=== PATIENT | male | born 1935 | race Caucasian/White ===

== ENCOUNTER 2017-02-06 14:49 | Inpatient (IN) | payer OTHER ==
[~2017-02-06] VITALS: Ht 182.9 cm; Wt 125.3 kg
[2017-02-06] MEDS ORDERED: ALBUT/IPRATROP 3MG/0.5MG NEB 3 ML VIAL INH ONE (15:00)
--- NOTE | 2017-02-06 15:01 | EMERGENCY ROOM VISIT NOTE ---
History Report prepared by Darío: Yuriy Leslie Under the Supervision of: Dr. Jr Mishra D.O. First contact with patient: 14:53 Stated Complaint: HIP PAIN History of Present Illness The patient is a 81 year old male with a history of COPD who presents to the Emergency Room via EMS with complaints of persistent left hip pain that started 3 days ago. He says that he was sneezing in his truck 3 days ago, and it "just popped". He has sat in the truck ever since the incident occurred. Per EMS, the patient's oxygen saturation was 73% prior to arrival. The patient states that it has been "quite a while" since he last ate. He adds that he originally fell 3 months ago but does not think he hurt anything on that fall. He had the left hip replaced 7 years ago. He denies any head pain, neck pain, chest pain or notable shortness of breath. Per the nursing staff, the patient has stool on him. The patient is an ex-smoker. Source of History: patient, EMS Onset: 3 days ago Position: other (left hip) Symptom Intensity: feit "everything pop" Quality: other (pain) Timing: other (persistent) Associated Symptoms: No headache, No neck pain, No chest pain, No SOB Note: Associated symptoms: Stool on him. Oxygen saturation of 73% prior to arrival. Review of Systems See HPI for pertinent positives & negatives. A total of 10 systems reviewed and were otherwise negative. Past Medical & Surgical Medical Problems: (1) Acute respiratory failure (2) COPD (chronic obstructive pulmonary disease) Surgical Problems: (1) History of hip replacement Family History Family history omitted secondary to patient's advanced age. Social History Smoking Status: Former Smoker Drug Use: none Occupation Status: employed Current/Historical Medications Scheduled Alfuzosin Hcl (Uroxatral), 10 MG PO DAILY Apixaban (Eliquis), 5 MG PO BID Fluticasone Furoate-Vilanterol (Breo Ellipta 200-25 Mcg/INH), 1 INHA PO DAILY Lisinopril/Hctz (Zestoretic 20MG/12.5MG), 1 TAB PO DAILY Metoprolol Succinate (Toprol Xl), 25 MG PO DAILY Pravastatin Sodium (Pravachol), 40 MG PO DAILY Scheduled PRN Acetaminophen (Tylenol), 1,000 MG PO Q6 PRN for Headache or Pain Famotidine (Pepcid), 20 MG PO DAILY PRN for ACID REFLUX Oxymetazoline Hcl (Afrin), 2 SPRAYS FLEX DAILY PRN for Nasal Congestion Allergies Coded Allergies: Penicillins (Verified Allergy, Severe, RASH, 02/06/17) Physical Exam Vital Signs Date Time Temp Pulse Resp B/P (MAP) Pulse Ox O2 Delivery O2 Flow Rate FiO2 02/06/17 18:32 128 98/53 89 Non-Rebreather 15.0 02/06/17 18:30 130 20 81 Non-Rebreather 15.0 02/06/17 18:01 85/53 02/06/17 18:00 145 25 84 Non-Rebreather 15.0 02/06/17 17:31 105/62 02/06/17 17:30 124 28 86 Non-Rebreather 15.0 02/06/17 17:08 132 16 103/48 88 Non-Rebreather 15.0 02/06/17 16:51 120/51 02/06/17 16:43 129 22 85 Non-Rebreather 15.0 02/06/17 16:31 117/55 02/06/17 16:13 104 20 86 Nebulizer 8.0 02/06/17 16:01 98/67 02/06/17 15:43 107 20 88 Nebulizer 8.0 02/06/17 15:31 113/62 02/06/17 15:21 90 Non-Rebreather 15.0 02/06/17 15:19 102/60 02/06/17 15:15 107 02/06/17 15:13 122 19 88 Non-Rebreather 15.0 02/06/17 15:12 102/60 02/06/17 15:11 36.7 100 19 89 Non-Rebreather 15.0 02/06/17 15:11 75 Room Air Physical Exam GENERAL: Patient is awake, alert, very anxious appearing. Appears to be having significant difficulty breathing. EYES: The conjunctivae are clear. The pupils are round and reactive. EARS, NOSE, MOUTH AND THROAT: The nose is without any evidence of any deformity. Mucous membranes are moist tongue is midline NECK: The neck is nontender and supple. RESPIRATORY: Lung sounds were diminished throughout with scattered rhonchi. Significant tachypnea and conversational dyspnea appreciated. CARDIOVASCULAR: Heart sounds were tachycardic but regular. No definite murmur. GASTROINTESTINAL: The abdomen is soft. Bowel sounds are present in all quadrants. Abdomen is nontender BACK: No midline tenderness or or step-off noted range of motion in flexion extension as well as rotation no signs of muscle spasm noted MUSCULOSKELETAL/EXTREMITIES: There is shortening on the left lower extremity. There was pain noted with external and internal rotation. SKIN: Pedal edema bilaterally. Skin was cool and dry. NEUROLOGIC: Patient is awake alert and oriented x3. Medical Decision & Procedures ER Provider Diagnostic Interpretation: X-ray results as stated below per interpretation by me and the radiologist. L PELVIS/UNILATERAL HIP 2-3VIEWS CLINICAL HISTORY: 81 years-old Male presenting with fall. TECHNIQUE: Single frontal view of the pelvis and frontal and frog-leg lateral views of the left hip were obtained. COMPARISON: None. FINDINGS: Postsurgical changes of total left hip arthroplasty. Lucency along the acetabular component. Heterotopic ossification noted along the superior portion of the left hip. Heterotopic ossification also noted along the greater trochanter. No periprosthetic fracture. No malalignment. A cam-type deformity may be present along the superior portion of the right femoral neck. Right hip joint congruent. Bony pelvis intact. Moderate stool burden in the rectum. IMPRESSION: 1. Lucency along the acetabular component of the total left hip arthroplasty could suggest particle disease. 2. No acute osseous injury of the pelvis or left hip. Electronically signed by: Alber Bar M.D. 02/06/2017 3:53 PM Dictated Date/Time: 02/06/2017 3:51 PM CHEST ONE VIEW PORTABLE CLINICAL HISTORY: Sepsis. COMPARISON STUDY: No previous studies for comparison. FINDINGS: Lung volumes are normal. No pneumothorax or pleural effusion is present. There is no consolidation to suggest pneumonia. Bibasilar opacities favor atelectasis or normal vessels. Moderate cardiomegaly is noted without evidence of pulmonary edema. IMPRESSION: 1. No acute cardiopulmonary findings. 2. Increased bibasilar markings which likely reflect atelectasis or normal vessels. Left basilar pneumonia could appear similar although is considered less likely. 3. Mild cardiomegaly without evidence of pulmonary edema. Electronically signed by: Juanito Gonzalez M.D. 02/06/2017 3:52 PM Dictated Date/Time: 02/06/2017 3:51 PM L FEMUR 2 VIEWS ROUTINE CLINICAL HISTORY: 81 years-old Male presenting with LLE pain. TECHNIQUE: Frontal and lateral views of the left femur were obtained. COMPARISON: None. FINDINGS: The proximal femur is excluded from the [id number]. Partially visualized stem component of the left hip prosthesis. Please see separately dictated radiographs of the left hip. The mid to distal femur demonstrates no acute fracture or malalignment. Degenerative changes of the knee. Atherosclerosis. Knee joint effusion. Ossification within the distal patellar tendon likely degenerative in etiology or indicative of prior injury. IMPRESSION: No acute osseous injury of the visualized portion of the left femur. Electronically signed by: Alber Bar M.D. 02/06/2017 4:38 PM Dictated Date/Time: 02/06/2017 4:37 PM Laboratory Results 02/06/17 15:20 Red Blood Count 4.12, Mean Corpuscular Volume 93.4, Mean Corpuscular Hemoglobin 32.3, Mean Corpuscular Hemoglobin Concent 34.5, Mean Platelet Volume 11.4, Neutrophils (%) (Auto) 84.9, Lymphocytes (%) (Auto) 6.4, Monocytes (%) (Auto) 8.5, Eosinophils (%) (Auto) 0.0, Basophils (%) (Auto) 0.0, Neutrophils # (Auto) 7.08, Lymphocytes # (Auto) 0.53, Monocytes # (Auto) 0.71, Eosinophils # (Auto) 0.00, Basophils # (Auto) 0.00 02/06/17 15:20 Test 02/06/17 15:20 02/06/17 15:30 02/06/17 15:34 White Blood Count 8.34 K/uL (4.8-10.8) Red Blood Count 4.12 M/uL (4.7-6.1) Hemoglobin 13.3 g/dL (14.0-18.0) Hematocrit 38.5 % (42-52) Mean Corpuscular Volume 93.4 fL (80-100) Mean Corpuscular Hemoglobin 32.3 pg (25-34) Mean Corpuscular Hemoglobin Concent 34.5 g/dl (32-36) Platelet Count 139 K/uL (130-400) Mean Platelet Volume 11.4 fL (7.4-10.4) Neutrophils (%) (Auto) 84.9 % Lymphocytes (%) (Auto) 6.4 % Monocytes (%) (Auto) 8.5 % Eosinophils (%) (Auto) 0.0 % Basophils (%) (Auto) 0.0 % Neutrophils # (Auto) 7.08 K/uL (1.4-6.5) Lymphocytes # (Auto) 0.53 K/uL (1.2-3.4) Monocytes # (Auto) 0.71 K/uL (0.11-0.59) Eosinophils # (Auto) 0.00 K/uL (0-0.5) Basophils # (Auto) 0.00 K/uL (0-0.2) RDW Standard Deviation 49.3 fL (36.4-46.3) RDW Coefficient of Variation 14.5 % (11.5-14.5) Immature Granulocyte % (Auto) 0.2 % Immature Granulocyte # (Auto) 0.02 K/uL (0.00-0.02) Erythrocyte Sedimentation Rate 50 mm/hr (0-14) Prothrombin Time 10.9 SECONDS (9.0-12.0) Prothromb Time International Ratio 1.0 (0.9-1.1) Activated Partial Thromboplast Time 30.8 SECONDS (21.0-31.0) Partial Thromboplastin Ratio 1.2 Anion Gap 5.0 mmol/L (3-11) Est Creatinine Clear Calc Drug Dose 19.7 ml/min Estimated GFR () 15.7 Estimated GFR (Non- 13.6 BUN/Creatinine Ratio 23.6 (10-20) Calcium Level 8.6 mg/dl (8.5-10.1) Phosphorus Level 4.7 mg/dl (2.5-4.9) Magnesium Level 2.1 mg/dl (1.8-2.4) Total Bilirubin 1.0 mg/dl (0.2-1) Aspartate Amino Transf (AST/SGOT) 117 U/L (15-37) Alanine Aminotransferase (ALT/SGPT) 52 U/L (12-78) Alkaline Phosphatase 63 U/L (45-117) Total Creatine Kinase 2711 U/L (39-308) Creatine Kinase MB 12.1 ng/ml (0.5-3.6) Creatine Kinase MB Ratio 0.4 (0-3.0) Troponin I 0.042 ng/ml (0-0.045) C-Reactive Protein 21.90 mg/dl (0-0.29) Pro-B-Type Natriuretic Peptide 789 pg/ml (0-1800) Total Protein 7.5 gm/dl (6.4-8.2) Albumin 3.2 gm/dl (3.4-5.0) Globulin 4.3 gm/dl (2.5-4.0) Albumin/Globulin Ratio 0.7 (0.9-2) Lipase 143 U/L (73-393) Venous Blood pH 7.29 (7.36-7.41) Venous Blood Partial Pressure CO2 48 mmHg (38.0-50.0) Venous Blood Partial Pressure O2 51 mmHg Venous Blood HCO3 23 mmol/L Venous Blood Oxygen Saturation 79.2 % Venous Blood Base Excess -4.1 mEq/L Bedside Lactic Acid Venous 1.53 mmol/L (0.90-1.70) Laboratory results per my review. Medications Administered Medications (Trade) Dose Ordered Sig/Doreen Route Start Time Stop Time Status Last Admin Dose Admin Albuterol/ Ipratropium (Duoneb) 12 ml ONE ONCE INH 02/06/17 15:00 02/06/17 15:01 DC 02/06/17 16:01 12 ML Levofloxacin (Levaquin / D5W) 750 mg NOW STAT IV 02/06/17 16:52 02/06/17 16:54 DC 02/06/17 17:07 750 MG Sodium Chloride 1,000 ml @ 999 mls/hr Q1H1M STAT IV 02/06/17 16:55 02/06/17 17:55 DC 02/06/17 17:08 999 MLS/HR Sodium Chloride 1,000 ml @ 500 mls/hr Q2H STAT IV 02/06/17 16:55 02/06/17 18:54 DC 02/06/17 16:55 500 MLS/HR ECG Indication: SOB/dyspnea Rate (beats per minute): 107 Rhythm: atrial fibrillation Findings: other (no PVCs, poor R-wave progression) Comparison ECG Date: no prior available ED Course 1453: The patient was evaluated in room A10. A complete history and physical examination were performed. 1500: Ordered Duoneb 12 ml INH. 1652: Ordered Levaquin / D5W 750 mg IV. 1655: Ordered NSS 1000 ml @ 500 mls/hr IV, NSS 1000 ml @ 999 mls/hr IV. 1705: Upon reevaluation, the patient is resting. I discussed results and treatment plan with him. He verbalizes agreement and understanding. The patient will be evaluated for further management and care. 1715: I discussed the patient's case with Camille Helms. The patient will be evaluated for further management. 1900: I discussed the patient with Dr. Tan Padilla [facility] bottom turner. Medical Decision Differential diagnosis: Etiologies such as fracture, dislocation, intra-abdominal, pneumothorax, intrathoracic, intracranial, neurologic, infections, reactive airway disease, pneumonia, pneumothorax, COPD, CHF, cardiac ischemia, pulmonary embolism, musculoskeletal, gastrointestinal, as well as others were entertained. Nursing notes reviewed. Additional history is obtained from the prehospital personnel. The patient is a 81-year-old male who presented to the emergency department by prehospital personnel with left hip pain. The patient has a history of a left hip replacement. He states that he sneezed very hard and then turned and ever since that time he's had significant pain in his left hip. Initially it was felt that the patient's hip was dislocated because his lower extremity was shortened and he had severe difficulty putting weight on the leg. The patient was very edematous and states that he's been in the cab of his truck for the last 3-4 days unable to get out. The patient was found have significant difficulty breathing with hypoxia and abnormal lung sounds. He has a history of COPD. He was treated with supplemental oxygen and bronchodilator therapy. His condition significantly improved. He appears to have signs of pneumonia on chest x-ray. The patient was treated with IV fluids and IV antibiotics. The patient was reevaluated multiple times. He appears to have atrial fibrillation at this time. I discussed this case with the on-call [facility] hospitalist group. I also discussed his case with the bottom turner. They've agreed to evaluate the patient in the emergency apartment for further management and disposition. Medication Reconcilliation Current Medication List: was personally reviewed by me Blood Pressure Screening Patient's blood pressure: Normal blood pressure Consults Time Called: 171 Consulting Physician: Camille Helms Returned Call: 1715 I discussed the patient's case with Camille Helms. The patient will be evaluated for further management. Additional Consults: Time Called: 1700 Consulted Physician: Dr. Tan PEARSON bottom turner Returned Call: 1900 Additional Comments: I discussed the patient with Dr. Tan PEARSON bottom turner. Impression Primary Impression: Rhabdomyolysis Additional Impressions: Left hip pain Renal failure Hypoxia Left lower lobe pneumonia COPD exacerbation Afib Scribe Attestation The scribe's documentation has been prepared under my direction and personally reviewed by me in its entirety. I confirm that the note above accurately reflects all work, treatment, procedures, and medical decision making performed by me. Departure Information Dispostion Being Evaluated By Hospitalist Referrals No Doctor, Assigned (PCP) Problem Qualifiers Primary Impression: Rhabdomyolysis Rhabdomyolysis type: non-traumatic Qualified Codes: M62.82 - Rhabdomyolysis Additional Impressions: Renal failure Renal failure chronicity: acute Acute renal failure type: unspecified Qualified Codes: N17.9 - Acute kidney failure, unspecified Left lower lobe pneumonia Pneumonia type: due to unspecified organism Qualified Codes: J18.1 - Lobar pneumonia, unspecified organism Afib Atrial fibrillation type: chronic Qualified Codes: I48.2 - Chronic atrial fibrillation
[2017-02-06 15:47] LABS: HEMATOCRIT 38.5 % (42-52); HEMOGLOBIN 13.3 g/dL (14.0-18.0); MEAN CELL VOLUME 93.4 fL (80-100); MEAN CORPUSCULAR HEMOGLOBIN 32.3 pg (25-34); MEAN CORPUSCULAR HGB CONC 34.5 g/dl (32-36); MEAN PLATELET VOLUME 11.4 fL (7.4-10.4); PLATELET COUNT 139 K/uL (130-400); RED CELL DISTRIBUTION WIDTH CV 14.5 % (11.5-14.5); RED CELL DISTRIBUTION WIDTH SD 49.3 fL (36.4-46.3); WHITE BLOOD COUNT 8.34 K/uL (4.8-10.8)
--- NOTE | 2017-02-06 15:54 | DIAGNOSTIC IMAGING REPORT ---
CHEST ONE VIEW PORTABLE CLINICAL HISTORY: Sepsis. COMPARISON STUDY: No previous studies for comparison. FINDINGS: Lung volumes are normal. No pneumothorax or pleural effusion is present. There is no consolidation to suggest pneumonia. Bibasilar opacities favor atelectasis or normal vessels. Moderate cardiomegaly is noted without evidence of pulmonary edema. IMPRESSION: 1. No acute cardiopulmonary findings. 2. Increased bibasilar markings which likely reflect atelectasis or normal vessels. Left basilar pneumonia could appear similar although is considered less likely. 3. Mild cardiomegaly without evidence of pulmonary edema. Electronically signed by: Juanito Gonzalez M.D. 02/06/2017 3:52 PM Dictated Date/Time: 02/06/2017 3:51 PM
[2017-02-06 15:55] LABS: PTT PATIENT 30.8 SECONDS (21.0-31.0)
--- NOTE | 2017-02-06 15:55 | DIAGNOSTIC IMAGING REPORT ---
L PELVIS/UNILATERAL HIP 2-3VIEWS CLINICAL HISTORY: 81 years-old Male presenting with fall. TECHNIQUE: Single frontal view of the pelvis and frontal and frog-leg lateral views of the left hip were obtained. COMPARISON: None. FINDINGS: Postsurgical changes of total left hip arthroplasty. Lucency along the acetabular component. Heterotopic ossification noted along the superior portion of the left hip. Heterotopic ossification also noted along the greater trochanter. No periprosthetic fracture. No malalignment. A cam-type deformity may be present along the superior portion of the right femoral neck. Right hip joint congruent. Bony pelvis intact. Moderate stool burden in the rectum. IMPRESSION: 1. Lucency along the acetabular component of the total left hip arthroplasty could suggest particle disease. 2. No acute osseous injury of the pelvis or left hip. Electronically signed by: Alber Bar M.D. 02/06/2017 3:53 PM Dictated Date/Time: 02/06/2017 3:51 PM
[2017-02-06 16:10] LABS: ALBUMIN 3.2 gm/dl (3.4-5.0); CALCIUM 8.6 mg/dl (8.5-10.1); CREATININE 3.94 mg/dl (0.60-1.40); POTASSIUM 3.8 mmol/L (3.5-5.1)
[2017-02-06 16:24] LABS: CKMB 12.1 ng/ml (0.5-3.6); PHOSPHORUS 4.7 mg/dl (2.5-4.9); TOTAL PROTEIN 7.5 gm/dl (6.4-8.2)
[2017-02-06 16:34] LABS: IG# 0.02 K/uL (0.00-0.02); LYMPH % 6.4 %; LYMPH ABS # 0.53 K/uL (1.2-3.4); MONO % 8.5 %; MONO ABS # 0.71 K/uL (0.11-0.59); NEUT % 84.9 %; NEUT ABS # 7.08 K/uL (1.4-6.5)
--- NOTE | 2017-02-06 16:39 | DIAGNOSTIC IMAGING REPORT ---
L FEMUR 2 VIEWS ROUTINE CLINICAL HISTORY: 81 years-old Male presenting with LLE pain. TECHNIQUE: Frontal and lateral views of the left femur were obtained. COMPARISON: None. FINDINGS: The proximal femur is excluded from the [id number]. Partially visualized stem component of the left hip prosthesis. Please see separately dictated radiographs of the left hip. The mid to distal femur demonstrates no acute fracture or malalignment. Degenerative changes of the knee. Atherosclerosis. Knee joint effusion. Ossification within the distal patellar tendon likely degenerative in etiology or indicative of prior injury. IMPRESSION: No acute osseous injury of the visualized portion of the left femur. Electronically signed by: Alber Bar M.D. 02/06/2017 4:38 PM Dictated Date/Time: 02/06/2017 4:37 PM
[2017-02-06] MEDS ORDERED: LEVAQUIN 750MG / 150ML D5W IV STA (16:52)
[2017-02-06] MEDS ORDERED: SODIUM CHLORIDE 0.9% 1000ML 1,000 ML IV STA ×3 (16:55→19:00)
[2017-02-06] MEDS ORDERED: FAMO20TA11 PO (17:34)
[2017-02-06] MEDS ORDERED: LISI-787 PO (17:34)
[2017-02-06] MEDS ORDERED: METO25TA4 PO (17:34)
[2017-02-06] MEDS ORDERED: ALFU10TA2 PO (17:34)
[2017-02-06] MEDS ORDERED: PRAV40TA PO (17:34)
[2017-02-06] MEDS ORDERED: APIX1TAB3 PO (17:34)
[2017-02-06] MEDS ORDERED: OXYM0.056 NAE (17:34)
[2017-02-06] MEDS ORDERED: ACET-1256 PO (17:34)
[2017-02-06] MEDS ORDERED: NITROGLYCERIN 0.4 MG SL PER TAB CHARGE SL PRN (18:00)
[2017-02-06] MEDS ORDERED: LEVALBUTEROL/IPRATROPIUM NEB INH PRN (18:30)
[2017-02-06] MEDS ORDERED: FLUT1INH7 PO (18:48)
[2017-02-06 19:44] VITALS: PULSE 109; O2SAT 97
[2017-02-06] MEDS ORDERED: HEPARIN 25000 UNIT/500 ML D5W ONE (19:53)
[2017-02-06] MEDS ORDERED: METOPROLOL TARTRATE 1 MG/ML VIAL IV PRN (20:00)
--- NOTE | 2017-02-06 20:11 | History and Physical ---
History & Physical Date & Time of Service: Feb 06, 2017 at 18:40 Chief Complaint: Hip Pain Primary Care Physician: No Doctor, Assigned History of Present Illness Source: patient, hospital records Pt is 81 y/o M with PMH COPD, HTN, BPH, JITENDRA uses CPAP, A-fib on Eliquis HS presented to ER with c/o L hip pain. 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 He states 3- 4 days ago he sneezed and felt pop in L hip and reports falling in the cab of his truck. Hx L hip replacement in past. He states that he hasn't been able to get out of his truck since and has been urinating/defecating in a bucket. His truck company called traffic control who then called EMS and had pt transported to ER. Found that pt hypoxic. Hx COPD, previous smoker, on Breo and denies rescue inhaler use. reports chronic cough productive of mendoza/green sputum and denies any increased cough or increased sputum production. Feeling chills and sweats past 2 days, unsure if had fever. Pt denies feeling SOB, however pt obvious respiratory distress. Reports feeling dizzy past couple of days. Reports some discomfort R lower leg. He reports chronic LE edema, worse past week. he states sometimes wears compression hose. Denies LE erythema. Hasn't had much to eat or drink since can't get out of his truck. Denies N/V/D/C, MELO, syncope, vision changes, neck pain, CP, orthopnea, palpitations, choking, rhinorrhea, abdominal pain, paresthesias, rashes, urinary symptoms. Do not have comparison labs, as [place] out of state. In ER pt found to O2 sats in 70's increased to 80's on non-rebreather. P: 120's , BP: 103.48. BUN: 93, Cr: 3.94, GFR: 15, POC lactic acid: 1.53. CPK: 2711, Troponin: 0.042 EKG: a-fib, rate 107. ESR: 50, CRP: 21. CXR: Increased bibasilar markings. Left basilar pneumonia could appear similar although is considered less likely. pending LE venous Doppler. Hip/pelvis xray: Lucency along the acetabular component of the total left hip arthroplasty could suggest particle disease. Past Medical/Surgical History Medical Problems: (1) Atrial fibrillation Status: Chronic (2) COPD (chronic obstructive pulmonary disease) Status: Chronic (3) Dyslipidemia Status: Chronic (4) HTN (hypertension) Status: Chronic (5) JITENDRA (obstructive sleep apnea) Status: Chronic Surgical Problems: (1) History of hip replacement Status: Resolved (2) History of left hip replacement Status: Resolved (3) Hx of right knee surgery Status: Resolved Family History Diabetes mellitus Stroke Social History Smoking Status: Former Smoker (smoked 2.5ppd x 56 years, quit 2008) Smokeless Tobacco Use: No Alcohol Use: none Drug Use: none Occupational Status: employed Allergies Coded Allergies: Penicillins (Verified Allergy, Severe, RASH, 02/06/17) Home Medications Scheduled Alfuzosin Hcl (Uroxatral), 10 MG PO DAILY Apixaban (Eliquis), 5 MG PO BID Fluticasone Furoate-Vilanterol (Breo Ellipta 200-25 Mcg/INH), 1 INHA PO DAILY Lisinopril/Hctz (Zestoretic 20MG/12.5MG), 1 TAB PO DAILY Metoprolol Succinate (Toprol Xl), 25 MG PO DAILY Pravastatin Sodium (Pravachol), 40 MG PO DAILY Scheduled PRN Acetaminophen (Tylenol), 1,000 MG PO Q6 PRN for Headache or Pain Famotidine (Pepcid), 20 MG PO DAILY PRN for ACID REFLUX Oxymetazoline Hcl (Afrin), 2 SPRAYS FLEX DAILY PRN for Nasal Congestion Review of Systems Constitutional: + problem reported (see HPI), No weight loss Eyes: No worsening of vision, No eye pain, No redness ENT: No unusual epistaxis, No trouble swallowing Respiratory: + problem reported (see HPI), No hemoptysis Cardiovascular: + problem reported (see HPI) Abdomen: No pain, No nausea, No vomiting, No diarrhea, No constipation, No GI bleeding Musculoskeletal: + problem reported (see HPI) Genitourinary - Male: No hematuria, No dysuria, No urinary frequency, No urinary urgency Neurologic: + balance problems (pt reports problems with his balance for several months) Psychiatric: No depression symptoms, No anxiety Endocrine: No excessive thirst, No excessive urination Hematologic / Lymphatic: No clotting problems, No swollen lymph nodes, No night sweats, No problem reported Integumentary: No rash, No itch Physical Exam Vital Signs Date Time Temp Pulse Resp B/P (MAP) Pulse Ox O2 Delivery O2 Flow Rate FiO2 02/06/17 17:08 132 16 103/48 88 Non-Rebreather 15.0 02/06/17 16:51 120/51 02/06/17 16:43 129 22 85 Non-Rebreather 15.0 02/06/17 16:31 117/55 02/06/17 16:13 104 20 86 Nebulizer 8.0 02/06/17 16:01 98/67 02/06/17 15:43 107 20 88 Nebulizer 8.0 02/06/17 15:31 113/62 02/06/17 15:21 90 Non-Rebreather 15.0 02/06/17 15:19 102/60 02/06/17 15:15 107 02/06/17 15:13 122 19 88 Non-Rebreather 15.0 02/06/17 15:12 102/60 02/06/17 15:11 36.7 100 19 89 Non-Rebreather 15.0 02/06/17 15:11 75 Room Air General Appearance: + obese, + pertinent finding (+respiratory distress, disheveled appearance) Head: normocephalic, atraumatic Eyes: normal inspection, PERRL, sclerae normal ENT: hearing grossly normal, pharynx normal, + pertinent finding (mildly dry mucous membranes) Respiratory/Chest: chest non-tender, + respiratory distress, + decreased breath sounds, + accessory muscle use, + crackles (LLL), + wheezing (scattered throughout) Cardiovascular: + tachycardia, + irregularly irregular Abdomen/GI: normal bowel sounds, non tender, soft Extremities/Musculoskelatal: + pertinent finding (bilateral LE edema, Right lower leg appears larger then left. no extremity erythema or significant warmth , distal pulses intact, sensation to light touch intact. Left lateral hip with tenderness to palpation, limited ROM L hip) Neurologic/Psych: alert, normal mood/affect, oriented x 3 Skin: normal color, warm/dry Diagnostics Laboratory Results Results Past 24 Hours Test 02/06/17 15:20 02/06/17 15:30 02/06/17 15:34 Range/Units White Blood Count 8.34 4.8-10.8 K/uL Red Blood Count 4.12 4.7-6.1 M/uL Hemoglobin 13.3 14.0-18.0 g/dL Hematocrit 38.5 42-52 % Mean Corpuscular Volume 93.4 80-100 fL Mean Corpuscular Hemoglobin 32.3 25-34 pg Mean Corpuscular Hemoglobin Concent 34.5 32-36 g/dl Platelet Count 139 130-400 K/uL Mean Platelet Volume 11.4 7.4-10.4 fL Neutrophils (%) (Auto) 84.9 % Lymphocytes (%) (Auto) 6.4 % Monocytes (%) (Auto) 8.5 % Eosinophils (%) (Auto) 0.0 % Basophils (%) (Auto) 0.0 % Neutrophils # (Auto) 7.08 1.4-6.5 K/uL Lymphocytes # (Auto) 0.53 1.2-3.4 K/uL Monocytes # (Auto) 0.71 0.11-0.59 K/uL Eosinophils # (Auto) 0.00 0-0.5 K/uL Basophils # (Auto) 0.00 0-0.2 K/uL RDW Standard Deviation 49.3 36.4-46.3 fL RDW Coefficient of Variation 14.5 11.5-14.5 % Immature Granulocyte % (Auto) 0.2 % Immature Granulocyte # (Auto) 0.02 0.00-0.02 K/uL Erythrocyte Sedimentation Rate 50 0-14 mm/hr Prothrombin Time 10.9 9.0-12.0 SECONDS Prothromb Time International Ratio 1.0 0.9-1.1 Activated Partial Thromboplast Time 30.8 21.0-31.0 SECONDS Partial Thromboplastin Ratio 1.2 Sodium Level 131 136-145 mmol/L Potassium Level 3.8 3.5-5.1 mmol/L Chloride Level 101 98-107 mmol/L Carbon Dioxide Level 25 21-32 mmol/L Anion Gap 5.0 3-11 mmol/L Blood Urea Nitrogen 93 7-18 mg/dl Creatinine 3.94 0.60-1.40 mg/dl Est Creatinine Clear Calc Drug Dose 19.7 ml/min Estimated GFR () 15.7 Estimated GFR (Non- 13.6 BUN/Creatinine Ratio 23.6 10-20 Random Glucose 151 70-99 mg/dl Calcium Level 8.6 8.5-10.1 mg/dl Phosphorus Level 4.7 2.5-4.9 mg/dl Magnesium Level 2.1 1.8-2.4 mg/dl Total Bilirubin 1.0 0.2-1 mg/dl Aspartate Amino Transf (AST/SGOT) 117 15-37 U/L Alanine Aminotransferase (ALT/SGPT) 52 12-78 U/L Alkaline Phosphatase 63 45-117 U/L Total Creatine Kinase 2711 39-308 U/L Creatine Kinase MB 12.1 0.5-3.6 ng/ml Creatine Kinase MB Ratio 0.4 0-3.0 Troponin I 0.042 0-0.045 ng/ml C-Reactive Protein 21.90 0-0.29 mg/dl Pro-B-Type Natriuretic Peptide 789 0-1800 pg/ml Total Protein 7.5 6.4-8.2 gm/dl Albumin 3.2 3.4-5.0 gm/dl Globulin 4.3 2.5-4.0 gm/dl Albumin/Globulin Ratio 0.7 0.9-2 Lipase 143 73-393 U/L Venous Blood pH 7.29 7.36-7.41 Venous Blood Partial Pressure CO2 48 38.0-50.0 mmHg Venous Blood Partial Pressure O2 51 mmHg Venous Blood HCO3 23 mmol/L Venous Blood Oxygen Saturation 79.2 % Venous Blood Base Excess -4.1 mEq/L Bedside Lactic Acid Venous 1.53 0.90-1.70 mmol/L Microbiology Results 02/06/17 Blood Culture, Received Pending 02/06/17 Blood Culture, Received Pending Diagnostic Radiology CXR: IMPRESSION: 1. No acute cardiopulmonary findings. 2. Increased bibasilar markings which likely reflect atelectasis or normal vessels. Left basilar pneumonia could appear similar although is considered less likely. 3. Mild cardiomegaly without evidence of pulmonary edema. L FEMUR XRAY: IMPRESSION: No acute osseous injury of the visualized portion of the left femur. HIP/PELVIS XRAY: IMPRESSION: 1. Lucency along the acetabular component of the total left hip arthroplasty could suggest particle disease. 2. No acute osseous injury of the pelvis or left hip. EKG EKG: Atrial fib, rate 107 Impression Assessment and Plan HYPOXIA/ACUTE RESPIRATORY FAILURE Pt with hx COPD. DDX: COPD exacerbation vs CAP vs PE. Hypoxic: O2 70's on RA, 80 's on non-rebreather. afebrile, no leukocytosis. POC lactic acid WNL. VBG: pH: 7.29, CO2: 48, HCO3: 23, O2: 51 CXR: 1. No acute cardiopulmonary findings. 2. Increased bibasilar markings which likely reflect atelectasis or normal vessels. Left basilar pneumonia could appear similar although is considered less likely. 3. Mild cardiomegaly without evidence of pulmonary edema. -ICU admit - management per ICU -pending blood cultures -pending LE Venous U/S to r/o DVT -consider VQ scan to r/o PE, unable to do CTA chest with current renal function ( although patient on eliquis) -MRSA swab -Influenza swab -sputum culture -bipap initiated -Solumedrol 40mg Q8h -NSS 75ml/hr -Xopenex/Atrovent nebs -Vancomycin -Levaquin - pharmacy consult for renal dosing -trend cardiac enzymes -continue Breo PARVIZ no baseline labs. BUN: 93, Cr: 3.94, GFR: 15.7 -IVF -avoid nephrotoxic agents when possible RHABDOMYOLYSIS Pt spent several days sitting in his truck: CPK: 2711. K: 3.8 -IVF -repeat CPK A-FIB rate 100-120's -continue metoprolol -IV lopressor >120 with holding parameters -hold eliquis with current renal functions -heparin IV -echo L HIP PAIN XRAY HIP/PELVIS IMPRESSION: 1. Lucency along the acetabular component of the total left hip arthroplasty could suggest particle disease. 2. No acute osseous injury of the pelvis or left hip. -morphine prn pain -consider PT/OT eval when pt more stable HTN: continue metoprol -hold lisinopril/HCTZ monitor BP DYSLPIDEMIA -lipid panel in am -continue statin JITENDRA -pt currently on bipap DVT PROPHYLAXIS -heparin IV DISPOSITION -admit ICU -Pt initially Full code, then DNR as per further discussion with pt and ICU team -Follows with [facility] [place] [facility] for routine care per pt Pt was seen with Dr Hicks. See addendum. Agree with above H and P. Briefly 81M with hx of Obesity, JITENDRA, HTN A fib presents with hypoxia. 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 Patient says couple of weeks ago he fell and injured his left hip. Having pain in left hip. 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 In the Er he was found to be hypoxic . Currently saturating in high 80's on 15lts oxygen mask.Patient says subjectively he is not feeling sob. denies any chest pain. No nausea or abdominal pain. Normal bowel and bladder movements. Uses cpap while sleeping. a/p Ge Mild resp distress Cvs s1 and s2 heard tachycardia irregular no murmurs Rs cta b/l no wheezing or crackles present Abd benign Dining Server non focal Ext no erythema a/p Acute hypoxic resp failure from CAP/ Copd ex on eliquis seems to be for a fib but may needs PE rule out f/u lower ext Doppler stat echo Normal RV starting on bipap iv Levaquin and vanco iv steroids and nebs close monitor in ICU PARVIZ with CR 3.9 on gentle fluids holding lisinopril/hctz avoid nephro toxins hopefully improved once hypoxia improved rhabdomyolysis most likely from not getting out of the tuck for last few days on fluids f/u labs a fib on metoprolol iv Lopressor prn holding eliquis for PARVIZ iv heparin Level of Care Critical Care Resuscitation Status DO NOT RESUSCITATE VTE Prophylaxis VTE Risk Assessment Done? Y/N: Yes Risk Level: Moderate Given or contraindicated: Other Anticoagulation
--- NOTE | 2017-02-06 20:17 | Cardiology Procedure Brief Nt ---
Preliminary Cardiology Note Procedure Date Feb 06, 2017. Pre-Procedure Diagnosis ?? Pulmonary Embolism Post-Procedure Diagnosis Normal Rv size and Fxn Procedure(s) Performed TTE Bedside limited Pattern Technician Chantalein Engraver Hand Soft Metals(s) none Estimated Blood Loss none Preliminary Findings Normal RV size and Fxn Normal LV size and Fxn Dilated IVC Dilated atria Trace TR and MR trileaflet AoV PA pressures could not be assessed due to lack of TR jet Limited images as only Sub costal images were diagnostic Recommendations none Specimens none
[2017-02-06] MEDS ORDERED: LEVALBUTEROL/IPRATROPIUM NEB INH SCH (21:00)
[2017-02-06 21:10] VITALS: BP 96/58; PULSE 118; TEMP 36.7; O2SAT 88; Ht 182.9 cm; Wt 125.3 kg
[2017-02-06] MEDS ORDERED: VANCOMYCIN CONSULT ACTIVE PRN (21:15)
--- NOTE | 2017-02-06 21:15 | NUR ---
A:Pt received to E105 from Ed. Oriented x4. Breath sounds diminished through out with expiratory wheezes. Arrived on 15l oxymask. Heparin gtt infusing @ 33 ml/hr. Alaniz catheter patent with concentrated sandrita urine. Afib on monitor. Fall precautions initiated. Code word obtained. Pt able to answer pmh questions. Oriented to room and call abdalla system. Verbalizes understanding to ring for assistance with needs.
--- NOTE | 2017-02-06 21:16 | Critical Care Consultation ---
Critical Care Consultation Date of Consultation: Feb 06, 2017. Attending Physician: Donya Solitario M.D. 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 Pt was driving truck from [place] back towards home state of [place] when he felt something in his left hip "pop" during a sneeze. He was unable to ambulate well after this and remained in the cab of his truck for the past 3-4 days. EMS was called by the truck company, upon initial exam pt was reported to be hypoxic in the mid 70's. Pt was transported to the ED were he was on non-rebreather of 15L with Sats of 75 followed by oxymask at 15L and sats were 90%. Pt did state that he continues with chronic productive cough without change. He has felt ill for the past two days with chills and sweats. Pt denied pain at the time of my examination. Pts EKG on admission demonstrated chronic A. Fib with a rate of 107, without prior EKG to compare. Pt did receive Duoneb, IV Levaquin, and 2L NSS Bolus with notable improvement in condition. Pt does state he has worsening swelling of his already chronic lower extremity swelling; however, he denies pain, erythema, or burning of either lower leg. He hasn't been eating or drinking much while in his truck and has be urinating and defecating in a bucket. He denies changes in urinary or bowel habits, upset stomach, N/V. He denies LOC, head trauma, dizziness, or visual changes. Pt denies chest pain, awareness of tachyarrhythmias, or palpitations. He does admit to a prior fall 3months ago to his hip, but doesn' t feel this was related. Initial labs in the ED included; CPK of 2711 and troponin 0.042 and 3.94 Cr. 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) Allergies Coded Allergies: Penicillins (Verified Allergy, Severe, RASH, 02/06/17) Home Medications Scheduled Alfuzosin Hcl (Uroxatral), 10 MG PO DAILY Apixaban (Eliquis), 5 MG PO BID Fluticasone Furoate-Vilanterol (Breo Ellipta 200-25 Mcg/INH), 1 INHA PO DAILY Lisinopril/Hctz (Zestoretic 20MG/12.5MG), 1 TAB PO DAILY Metoprolol Succinate (Toprol Xl), 25 MG PO DAILY Pravastatin Sodium (Pravachol), 40 MG PO DAILY Scheduled PRN Acetaminophen (Tylenol), 1,000 MG PO Q6 PRN for Headache or Pain Famotidine (Pepcid), 20 MG PO DAILY PRN for ACID REFLUX Oxymetazoline Hcl (Afrin), 2 SPRAYS FLEX DAILY PRN for Nasal Congestion Current Inpatient Medications Current Inpatient Medications Medications (Trade) Dose Ordered Sig/Doreen Route Start Time Stop Time Status Last Admin Dose Admin Sodium Chloride 1,000 ml @ 75 mls/hr [id number] IV 02/06/17 17:57 03/08/17 17:56 UNV Acetaminophen (Tylenol Tab) 650 mg Q4H PRN PO 02/06/17 18:00 03/08/17 17:59 Nitroglycerin (Nitrostat Tab) 0.4 mg UD PRN SL 02/06/17 18:00 03/08/17 17:59 Pantoprazole Sodium (Protonix Tab) 40 mg DAILY PO 02/07/17 09:00 02/10/17 08:59 Morphine Sulfate (MoRPHine SULFATE INJ) 2 mg Q2H PRN IV 02/06/17 18:00 02/20/17 17:59 Miscellaneous (Xopenex/ Atrovent Neb) 1 ea Q6R INH 02/06/17 21:00 03/08/17 20:59 UNV Miscellaneous (Xopenex/ Atrovent Neb) 1 ea Q2R PRN INH 02/06/17 18:30 03/08/17 18:29 UNV Methylprednisolone Sodium Succinate 40 mg/Syringe 0.64 ml @ 1.5 mls/min Q8 IV 02/06/17 22:00 03/08/17 21:59 UNV Heparin Sodium/ Dextrose 1 ea NOW STAT N/A 02/06/17 18:35 02/06/17 18:36 UNV Vancomycin HCl (Consult) 1 ea UD PRN N/A 02/06/17 21:15 03/08/17 21:14 Alfuzosin HCl (Uroxatral Tab) 10 mg DAILY PO 02/07/17 09:00 03/09/17 08:59 UNV Metoprolol Succinate (Toprol Xl Tab) 25 mg DAILY PO 02/07/17 09:00 03/09/17 08:59 UNV Pravastatin Sodium (Pravachol Tab) 40 mg DAILY PO 02/07/17 09:00 03/09/17 08:59 UNV Non-Formulary Medication (Fluticasone Furoate-Vilanterol (Breo Ellipta 200-25 Mcg/INH)) 1 inha DAILY PO 02/07/17 09:00 03/09/17 08:59 UNV Metoprolol Tartrate (Lopressor Iv) 2.5 mg Q4 PRN IV. 02/06/17 20:00 03/08/17 19:59 UNV Levofloxacin (Consult) 1 ea UD PRN N/A 02/06/17 21:30 03/08/17 21:29 Review of Systems 12 systems reviewed and negative other than previously mentioned in the HPI. Physical Exam Date Time Temp Pulse Resp B/P (MAP) Pulse Ox O2 Delivery O2 Flow Rate FiO2 02/06/17 21:07 113 02/06/17 21:03 97/47 02/06/17 20:37 108 18 91 BiPAP 02/06/17 20:31 104/65 02/06/17 20:07 121 17 94 BiPAP 02/06/17 20:01 104/54 02/06/17 19:51 103/56 02/06/17 19:44 109 97 50 02/06/17 19:37 108 19 90 Oxymask 15.0 02/06/17 19:31 87/56 02/06/17 19:09 83/47 02/06/17 19:07 128 19 87 Oxymask 15.0 02/06/17 19:01 96/46 02/06/17 18:37 152 24 02/06/17 18:32 128 98/53 89 Non-Rebreather 15.0 02/06/17 18:30 130 20 81 Non-Rebreather 15.0 02/06/17 18:01 85/53 02/06/17 18:00 145 25 84 Non-Rebreather 15.0 02/06/17 17:31 105/62 02/06/17 17:30 124 28 86 Non-Rebreather 15.0 02/06/17 17:08 132 16 103/48 88 Non-Rebreather 15.0 02/06/17 16:51 120/51 02/06/17 16:43 129 22 85 Non-Rebreather 15.0 02/06/17 16:31 117/55 02/06/17 16:13 104 20 86 Nebulizer 8.0 02/06/17 16:01 98/67 02/06/17 15:43 107 20 88 Nebulizer 8.0 02/06/17 15:31 113/62 02/06/17 15:21 90 Non-Rebreather 15.0 02/06/17 15:19 102/60 02/06/17 15:15 107 02/06/17 15:13 122 19 88 Non-Rebreather 15.0 02/06/17 15:12 102/60 02/06/17 15:11 36.7 100 19 89 Non-Rebreather 15.0 02/06/17 15:11 75 Room Air Vital Signs - as noted Laboratory Data - as noted Physical Exam: General - NAD with Oxymask in place Eyes - PERRL, EOMI No icterus, gaze conjugate ENT - Mucosa dry no lesions or candidiasis Neck - Supple, trachea midline, no masses or lymphadenopathy, no JVD or bruits Lungs - No paradoxical chest wall movement, diminished to auscultation bilaterally with minimal rales at the bases. No wheezing or rhonchi noted Heart - Irregularly irregular in the low 100's. No murmur, rubs, clicks, or gallops appreciated Abdomen - BS present, no bruits noted, tympanic to percussion, soft, nontender, moderately distended obese abd Extremities - Edema R> L, pedal pulses intact, pain noted to left hip with extremity rotation Neuro - A&O x 4 Strength extremities equal and appropriate bilaterally Reflexes: normal and equal CN:PERRL, EOMI, no facial asymmetry, uvula/tongue midline Laboratory Results Last 24 Hours Test 02/06/17 15:20 02/06/17 15:30 02/06/17 15:34 02/06/17 21:00 White Blood Count 8.34 K/uL Red Blood Count 4.12 M/uL Hemoglobin 13.3 g/dL Hematocrit 38.5 % Mean Corpuscular Volume 93.4 fL Mean Corpuscular Hemoglobin 32.3 pg Mean Corpuscular Hemoglobin Concent 34.5 g/dl Platelet Count 139 K/uL Mean Platelet Volume 11.4 fL Neutrophils (%) (Auto) 84.9 % Lymphocytes (%) (Auto) 6.4 % Monocytes (%) (Auto) 8.5 % Eosinophils (%) (Auto) 0.0 % Basophils (%) (Auto) 0.0 % Neutrophils # (Auto) 7.08 K/uL Lymphocytes # (Auto) 0.53 K/uL Monocytes # (Auto) 0.71 K/uL Eosinophils # (Auto) 0.00 K/uL Basophils # (Auto) 0.00 K/uL RDW Standard Deviation 49.3 fL RDW Coefficient of Variation 14.5 % Immature Granulocyte % (Auto) 0.2 % Immature Granulocyte # (Auto) 0.02 K/uL Erythrocyte Sedimentation Rate 50 mm/hr Prothrombin Time 10.9 SECONDS Prothromb Time International Ratio 1.0 Activated Partial Thromboplast Time 30.8 SECONDS Partial Thromboplastin Ratio 1.2 Sodium Level 131 mmol/L Potassium Level 3.8 mmol/L Chloride Level 101 mmol/L Carbon Dioxide Level 25 mmol/L Anion Gap 5.0 mmol/L Blood Urea Nitrogen 93 mg/dl Creatinine 3.94 mg/dl Est Creatinine Clear Calc Drug Dose 19.7 ml/min Estimated GFR () 15.7 Estimated GFR (Non- 13.6 BUN/Creatinine Ratio 23.6 Random Glucose 151 mg/dl Calcium Level 8.6 mg/dl Phosphorus Level 4.7 mg/dl Magnesium Level 2.1 mg/dl Total Bilirubin 1.0 mg/dl Aspartate Amino Transf (AST/SGOT) 117 U/L Alanine Aminotransferase (ALT/SGPT) 52 U/L Alkaline Phosphatase 63 U/L Total Creatine Kinase 2711 U/L Creatine Kinase MB 12.1 ng/ml Creatine Kinase MB Ratio 0.4 Troponin I 0.042 ng/ml C-Reactive Protein 21.90 mg/dl Pro-B-Type Natriuretic Peptide 789 pg/ml Total Protein 7.5 gm/dl Albumin 3.2 gm/dl Globulin 4.3 gm/dl Albumin/Globulin Ratio 0.7 Lipase 143 U/L Venous Blood pH 7.29 Venous Blood Partial Pressure CO2 48 mmHg Venous Blood Partial Pressure O2 51 mmHg Venous Blood HCO3 23 mmol/L Venous Blood Oxygen Saturation 79.2 % Venous Blood Base Excess -4.1 mEq/L Bedside Lactic Acid Venous 1.53 mmol/L Diagnostic Results L PELVIS/UNILATERAL HIP 2-3VIEWS CLINICAL HISTORY: 81 years-old Male presenting with fall. TECHNIQUE: Single frontal view of the pelvis and frontal and frog-leg lateral views of the left hip were obtained. COMPARISON: None. FINDINGS: Postsurgical changes of total left hip arthroplasty. Lucency along the acetabular component. Heterotopic ossification noted along the superior portion of the left hip. Heterotopic ossification also noted along the greater trochanter. No periprosthetic fracture. No malalignment. A cam-type deformity may be present along the superior portion of the right femoral neck. Right hip joint congruent. Bony pelvis intact. Moderate stool burden in the rectum. IMPRESSION: 1. Lucency along the acetabular component of the total left hip arthroplasty could suggest particle disease. 2. No acute osseous injury of the pelvis or left hip. Electronically signed by: Alber Bar M.D. 02/06/2017 3:53 PM Dictated Date/Time: 02/06/2017 3:51 PM CHEST ONE VIEW PORTABLE CLINICAL HISTORY: Sepsis. COMPARISON STUDY: No previous studies for comparison. FINDINGS: Lung volumes are normal. No pneumothorax or pleural effusion is present. There is no consolidation to suggest pneumonia. Bibasilar opacities favor atelectasis or normal vessels. Moderate cardiomegaly is noted without evidence of pulmonary edema. IMPRESSION: 1. No acute cardiopulmonary findings. 2. Increased bibasilar markings which likely reflect atelectasis or normal vessels. Left basilar pneumonia could appear similar although is considered less likely. 3. Mild cardiomegaly without evidence of pulmonary edema. Electronically signed by: Juanito Gonzalez M.D. 02/06/2017 3:52 PM Dictated Date/Time: 02/06/2017 3:51 PM L FEMUR 2 VIEWS ROUTINE CLINICAL HISTORY: 81 years-old Male presenting with LLE pain. TECHNIQUE: Frontal and lateral views of the left femur were obtained. COMPARISON: None. FINDINGS: The proximal femur is excluded from the [id number]. Partially visualized stem component of the left hip prosthesis. Please see separately dictated radiographs of the left hip. The mid to distal femur demonstrates no acute fracture or malalignment. Degenerative changes of the knee. Atherosclerosis. Knee joint effusion. Ossification within the distal patellar tendon likely degenerative in etiology or indicative of prior injury. IMPRESSION: No acute osseous injury of the visualized portion of the left femur. Electronically signed by: Alber Bar M.D. 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 PLAN: Resp: * Decreased breath sounds on physical exam with notable hypoxia * Hi-Flow O2 @ 50L 75% * Will cover for PNA: Con't Levaquin and D/C Vanco and begin Rocephin * Solumedrol 40mg IV q8h * Monitor accu-checks * Obtain Procalcitonin Now * Concern for P.E: Lower Extremity Doppler negative, pt on eliquis chronically, no strain noted on ECHO * Wells Criteria 3 Moderate Risk * A. Fib on Anticoag: Con't Heparin Drip * Influenza A Positive: begin Tamiflu 30mg daily renally adjusted * Resp Regimen: Atrovent and Xopenex * Goal SPO2 88-92 MSK: * Notify if ACET or Morphine dose not meet pain relief * Ortho Consult in AM CV: * Troponin elevated: 0.042 -> 0.073 Continue to trend * CK-MB: 12.1 -> 10.5 * Pro-BNP WNL * Monitor on telemetry * Continue home medications: * Metoprolol Succinate 25mg PO Daily * Pravastatin 40mg PO daily * Hold ACEi * ECHO 02/06/17: Normal RV size and Fxn; Normal LV size and Fxn; Dilated IVC; Dilated atria; Trace TR and MR; trileaflet AoV, PA pressures could not be assessed due to lack of TR jet; Limited images as only Sub costal images were diagnostic * Hypotension improved after fluid boluses: now running 105-115 * Hold Arterial Line at this time. Consent on chart. Neuro: * Without pain currently * Monitor for unilateral neuro changes Fluids/Renal: * Unknown baseline Cr: likely PARVIZ: Cr: 3.94 * CPK elevated * Continue NSS @ 125mL/hr * Alaniz to gravity * Monitor renally dosed medications closely & avoid nephrotoxic agents * Urinalysis significant for protein 2+, Blood 3+, Bacteria 2+, Granular Casts 5 -10. ID: * CT susp for RLL PNA versus Atelectasis * Influenza A positive * Urine sent for culture * Blood cultures pending * Sputum Culture pending * Afebrile * Procalcitonin ordered * Lactic Acid negative GI/Nutrition: * PPI ordered for hx of reflux * AHA diet ordered * Lipase WNL * AST elevated * Recheck labs in AM Heme: * H&H 13.3/38.5 Plts 139 * Coags" PT/INR: 10./1.0; aPTT 30.8 * Heparin infusion now Endocrine: * Accu-Checks per protocol, started insulin infusion for 2 blood sugars greater than 180 or one greater than 250 * No Thyroid or Diabetes dx known CCT: 37 Minutes; This time is exclusive of all separately billable procedures. Thank you for involving us in the care of this patient. Please refer to Dr. Maddox's addendum for further recommendations. I have personally evaluated and examined this patient. I agree with assessment and plan of Jesús Toth PA-C. Influenza A pneumonia. On tamiflu, does not was heroic measures of CPR in event of cardiac arrest nor intubation in case of respiratory arrest. On long- term anticoagulation for atrial fibrillation. Problem Qualifiers (1) Renal failure: Renal failure chronicity: acute Acute renal failure type: unspecified Qualified Codes: N17.9 - Acute kidney failure, unspecified (2) Rhabdomyolysis: Rhabdomyolysis type: non-traumatic Qualified Codes: M62.82 - Rhabdomyolysis (3) Afib: Atrial fibrillation type: chronic Qualified Codes: I48.2 - Chronic atrial fibrillation
[2017-02-06 21:19] VITALS: PULSE 108; O2SAT 90
--- NOTE | 2017-02-06 21:29 | DIAGNOSTIC IMAGING REPORT ---
CT OF THE CHEST WITHOUT IV CONTRAST CLINICAL HISTORY: Hypoxia. COMPARISON STUDY: Chest radiograph performed earlier today. CT DOSE: 802.41 mGy.cm TECHNIQUE: Axial images of the chest were obtained without IV contrast. Images were reviewed in the axial, sagittal, and coronal planes. IV contrast was not administered for this examination. A dose lowering technique was utilized adhering to the principles of ALARA. FINDINGS: There is mild dilatation of the ascending aorta which measures 4 cm at the level OF the main pulmonary artery. Moderate cardiomegaly is noted with a small pericardial effusion. There is no pneumothorax or pleural effusion. Moderate upper lobe predominant emphysema is noted. There are minimal tree-in-bud nodules within the anterior segment of the right upper lobe. There is segmental right lower lobe airspace opacity with air bronchograms. There is also left basilar airspace opacity. There is no cavitation. Lungs are suboptimally assessed due to respiratory motion. There is narrowing of the trachea and mainstem bronchi. A few prominent right hilar and mediastinal lymph nodes are noted. Index right hilar node measures 9 mm in short axis diameter. A low-attenuation left adrenal nodule is suggestive of an adenoma. No suspicious osseous lesions are present. IMPRESSION: 1. Extensive right lower lobe airspace opacity with air bronchograms and mild volume loss. Mild left lower lobe airspace opacity. The findings could reflect pneumonia or atelectasis. 2. Mild tree-in-bud opacities within the right upper lobe which suggests an infectious bronchiolitis. 3. Moderate emphysema. 4. Moderate cardiomegaly and small pericardial effusion. 5. 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 Electronically signed by: Juanito Gonzalez M.D. 02/06/2017 9:28 PM Dictated Date/Time: 02/06/2017 9:15 PM
[2017-02-06] MEDS ORDERED: LEVOFLOXACIN CONSULT ACTIVE PRN (21:30)
[2017-02-06] MEDS ORDERED: VANCOMYCIN IV 2,000 MG in SODIUM CHLORIDE 0.9% 500ML 500 ML IV ONE (21:30)
--- NOTE | 2017-02-06 21:43 | Pharmacy Progress Note ---
Pharmacy Abx Initial Consult Date of Service Feb 06, 2017. Pharmacy Dosing Scope Date of Consult: 02/06/17 Pharmacy is consulted to initiate vancomycin/levaquin IV dosing therapy, order appropriate labs and adjust drug dose/frequency. Subjective The patient is a 81 year old male admitted on Feb 06, 2017 at 18:05. Objective Height (Feet): 6 Height (Inches): 0.00 Weight (Kilograms): 112.800 Vital Signs (Past 12Hrs) Vital Signs Past 12 Hours Date Time Temp Pulse Resp B/P (MAP) Pulse Ox O2 Delivery O2 Flow Rate FiO2 02/06/17 21:19 108 90 50 02/06/17 21:10 36.7 118 22 96/58 88 Partial Rebreather 15.0 02/06/17 21:07 113 02/06/17 21:03 97/47 02/06/17 20:37 108 18 91 BiPAP 02/06/17 20:31 104/65 02/06/17 20:07 121 17 94 BiPAP 02/06/17 20:01 104/54 02/06/17 19:51 103/56 02/06/17 19:44 109 97 50 02/06/17 19:37 108 19 90 Oxymask 15.0 02/06/17 19:31 87/56 02/06/17 19:09 83/47 02/06/17 19:07 128 19 87 Oxymask 15.0 02/06/17 19:01 96/46 02/06/17 18:37 152 24 02/06/17 18:32 128 98/53 89 Non-Rebreather 15.0 02/06/17 18:30 130 20 81 Non-Rebreather 15.0 02/06/17 18:01 85/53 02/06/17 18:00 145 25 84 Non-Rebreather 15.0 02/06/17 17:31 105/62 02/06/17 17:30 124 28 86 Non-Rebreather 15.0 02/06/17 17:08 132 16 103/48 88 Non-Rebreather 15.0 02/06/17 16:51 120/51 02/06/17 16:43 129 22 85 Non-Rebreather 15.0 02/06/17 16:31 117/55 02/06/17 16:13 104 20 86 Nebulizer 8.0 02/06/17 16:01 98/67 02/06/17 15:43 107 20 88 Nebulizer 8.0 02/06/17 15:31 113/62 02/06/17 15:21 90 Non-Rebreather 15.0 02/06/17 15:19 102/60 02/06/17 15:15 107 02/06/17 15:13 122 19 88 Non-Rebreather 15.0 02/06/17 15:12 102/60 02/06/17 15:11 36.7 100 19 89 Non-Rebreather 15.0 02/06/17 15:11 75 Room Air Lab Results (24Hrs) Laboratory Tests (24 Hours) Test 02/06/17 15:20 02/06/17 21:32 C-Reactive Protein 21.90 mg/dl (0-0.29) H Erythrocyte Sedimentation Rate 50 mm/hr (0-14) H White Blood Count 8.34 K/uL (4.8-10.8) Red Blood Count 4.12 M/uL (4.7-6.1) L Hemoglobin 13.3 g/dL (14.0-18.0) L Hematocrit 38.5 % (42-52) L Mean Corpuscular Volume 93.4 fL (80-100) Mean Corpuscular Hemoglobin 32.3 pg (25-34) Mean Corpuscular Hemoglobin Concent 34.5 g/dl (32-36) Platelet Count 139 K/uL (130-400) Mean Platelet Volume 11.4 fL (7.4-10.4) H Neutrophils (%) (Auto) 84.9 % Lymphocytes (%) (Auto) 6.4 % Monocytes (%) (Auto) 8.5 % Eosinophils (%) (Auto) 0.0 % Basophils (%) (Auto) 0.0 % Neutrophils # (Auto) 7.08 K/uL (1.4-6.5) H Lymphocytes # (Auto) 0.53 K/uL (1.2-3.4) L Monocytes # (Auto) 0.71 K/uL (0.11-0.59) H Eosinophils # (Auto) 0.00 K/uL (0-0.5) Basophils # (Auto) 0.00 K/uL (0-0.2) Micro Results Date/Time Source Procedure Growth Status 02/06/17 15:20 Blood Blood Culture Pending Received 02/06/17 15:15 Blood Blood Culture Pending Received 02/06/17 00:00 Nasal MRSA DNA Surveillance Screen Pending Received Assessment & Plan Assessment 81 year old male initiated on Vancomycin/Levaquin IV for respiratory failure. Admitted to ICU. Blood culture and MRSA nasal swab pending. Plan Vancomycin IV * Loading dose: 2000 mg (18 mg/kg) * Pt with PARVIZ - unable to order ongoing maintenance dose * Random level ordered for 02/07/17 with AM labs Levaquin IV * 750 mg IV X 1 * Reduce to 500 mg IV every 48 hours Pharmacy will continue to follow and will adjust dose/frequency as necessary. Thank you.
[2017-02-06] MEDS ORDERED: LEVALBUTEROL 1.25MG/0.5ML NEB INH PRN (22:00)
[2017-02-06] MEDS ORDERED: IPRATROPIUM BROMIDE NEB SOLN 0.02% 2.5 ML VIAL INH PRN (22:00)
--- NOTE | 2017-02-06 22:00 | DIAGNOSTIC IMAGING REPORT ---
BILATERAL LOWER EXTREMITY VENOUS DOPPLER CLINICAL HISTORY: Lower extremity swelling. COMPARISON STUDY: No previous studies for comparison. TECHNIQUE: Sonography of the deep venous system of the bilateral lower extremities was performed. Compression and augmentation were evaluated. FINDINGS: The bilateral common femoral, superficial femoral and popliteal veins were compressible. Augmentation was normal. Flow was shown within the deep calf vessels. IMPRESSION: No evidence of deep venous thrombus within the bilateral lower extremities. Electronically signed by: Juanito Gonzalez M.D. 02/06/2017 9:59 PM Dictated Date/Time: 02/06/2017 9:59 PM
[2017-02-06 22:01] VITALS: BP 105/64; PULSE 110; O2SAT 91
--- NOTE | 2017-02-06 22:14 | NUR ---
placed patient on HFNC at 50 LPM and FiO2 75% SpO2 91%
[2017-02-06 22:15] LABS: CKMB 10.5 ng/ml (0.5-3.6)
[2017-02-06] MEDS: METHYLPREDNISOLONE IV 40 MG in SYRINGE 0 ML IV SCH (22:18)
[2017-02-06] MEDS: SODIUM CHLORIDE 0.9% 1000ML 1,000 ML IV SCH (22:20)
[2017-02-06 23:01] VITALS: BP 99/58; PULSE 105; O2SAT 94
[2017-02-06 23:54] VITALS: BP 99/58; PULSE 108; O2SAT 95
[2017-02-07] VITALS (25 sets, daily range): BP systolic 108–143; BP diastolic 53–93; PULSE 82–110; TEMP 36.7–37.3; O2SAT 88–95
--- NOTE | 2017-02-07 | NUR ---
A:Resting in bed. Remains on hi flow oxygen. Cough moist and productive. Sputum specimen and flu swab obtained. Urine appears less concentrated than previous. Vital signs stable. Afib on monitor. Heparin and ivf infusing without difficulty. Call abdalla within reach.
[2017-02-07 01:19] LABS: INFLUENZA B ANTIGEN Neg for Influ B (NEG); INFLUENZA B PCR Neg for Influ B (NEG)
[2017-02-07 01:20] LABS: INFLUENZA A PCR POS for Influ A (NEG)
[2017-02-07] MEDS ORDERED: OSELTAMIVIR PHOSPHATE SUSP 30 MG/5 ML UDP PO ONE (01:30)
[2017-02-07] MEDS: CEFTRIAXONE SOD INJ 1 GM in DEXTROSE 5% ADD-VANTAGE 50ML 50 ML IV SCH ×2 (02:00→22:07)
--- NOTE | 2017-02-07 02:10 | NUR ---
Repositioned in bed. Given Tamiflu and placed on droplet precautions for positive flu swab. Vss.
[2017-02-07] MEDS: LEVALBUTEROL 1.25MG/0.5ML NEB INH SCH ×4 (02:16→19:30)
[2017-02-07] MEDS: IPRATROPIUM BROMIDE NEB SOLN 0.02% 2.5 ML VIAL INH SCH ×4 (02:16→19:30)
[2017-02-07 02:20] LABS: HEMATOCRIT 34.8 % (42-52); HEMOGLOBIN 11.8 g/dL (14.0-18.0); MEAN CELL VOLUME 94.1 fL (80-100); MEAN CORPUSCULAR HEMOGLOBIN 31.9 pg (25-34); MEAN CORPUSCULAR HGB CONC 33.9 g/dl (32-36); MEAN PLATELET VOLUME 11.1 fL (7.4-10.4); PLATELET COUNT 115 K/uL (130-400); RED CELL DISTRIBUTION WIDTH CV 14.6 % (11.5-14.5); RED CELL DISTRIBUTION WIDTH SD 50.1 fL (36.4-46.3)
[2017-02-07 02:40] LABS: ALBUMIN 2.5 gm/dl (3.4-5.0); CREATININE 3.91 mg/dl (0.60-1.40); POTASSIUM 4.1 mmol/L (3.5-5.1)
[2017-02-07 02:43] LABS: PTT PATIENT 50.8 SECONDS (21.0-31.0)
[2017-02-07 03:00] LABS: CKMB 9.7 ng/ml (0.5-3.6); TOTAL PROTEIN 6.3 gm/dl (6.4-8.2)
[2017-02-07 03:02] LABS: PHOSPHORUS 5.7 mg/dl (2.5-4.9)
[2017-02-07 03:20] LABS: IG# 0.02 K/uL (0.00-0.02); LYMPH % 5.1 %; LYMPH ABS # 0.35 K/uL (1.2-3.4); MONO % 4.7 %; MONO ABS # 0.32 K/uL (0.11-0.59); NEUT % 89.9 %; NEUT ABS # 6.11 K/uL (1.4-6.5)
--- NOTE | 2017-02-07 04:07 | NUR ---
Resting in bed with eyes closed. Remains on high flow. Coughing more frequently. Lung sounds coarse through out. Ptt 50.8, continue with Heparin gtt @ 1650 units/hr per weight based protocol. Taking sips of water. Adequate urine output.
[2017-02-07] MEDS: METHYLPREDNISOLONE IV 40 MG in SYRINGE 0 ML IV SCH ×3 (05:41→22:07)
--- NOTE | 2017-02-07 06:03 | NUR ---
Am care provided. Foi2 increased to 90% by RT. Iv fluids and Heparin infusing without difficulty. Vss.
[2017-02-07] MEDS: BREO-ELLIPTA~ORDER AWAITING ACTION SCH ×2 (08:00)
--- NOTE | 2017-02-07 08:00 | NUR ---
Pt resting in bed. Appears short of breath with conversation but states that is his normal. On high flow nasal cannula 90% 50L. Lung sounds exp wheezes. Heparin drip continues at 1650 unit/hr with NSS @ 125 ml/hr. 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 +1 pitting edema to BLE. Denies any pain at this time but reports back spasms.
[2017-02-07] MEDS ORDERED: PHARMACY GLYCEMIC MGMT CONSULT PRN (08:39)
[2017-02-07] MEDS ORDERED: NURSING VERBAL MED ORDER ONE ×2 (08:45→21:30)
[2017-02-07] MEDS ORDERED: PANTOprazole SOD 40 MG TAB PO SCH (09:00)
--- NOTE | 2017-02-07 09:16 | ECHOCARDIOGRAM REPORT ---
*NOTICE TO RECEIVING [employer] This information is strictly Confidential and protected under [place] law. [place] law prohibits you from making any further disclosure of this information unless further disclosure is expressly permitted by the written consent of the person to whom it pertains or is authorized by law. A general authorization for the release of medical or other information is not sufficient for this purpose. Hospital accepts no responsibility if the information is made available to any other person, INCLUDING THE PATIENT. Interpretation Summary * Name: AUDELIA CORRIGAN Study Date: 02/06/2017 07:59 PM BP: 119/59 mmHg * [facility] HR: 99 * : 1935 (M/d/yyyy) Gender: Male Height: 72 in * Age: 81 yrs Ethnicity: [place] Weight: 248 lb * Ordering Physician: Cici Churchill * Referring Physician: Self, Referred * Performed By: Jaimee Saini RDCS * * Reason For Study: Hypoxia, Hypotension, A fib * BSA: 2.3 m2 * -- Conclusions -- * The left ventricle is normal in size. * There is normal left ventricular wall thickness. * Left ventricular systolic function is normal. * Ejection Fraction = 65-70%. * No obvious regional wall motion abnormalities. * The right ventricle is normal in size and function. * Trivial pericardial effusion. * Normal PA pressures. * Dilated inferior vena cava with reduced collapsability with sniff indicates an elevated right atrial pressure of 15 mmHg * These findings were d/w the head packager service last evening at the time of the bedside echo. Only the subcostal images were diagnostic as the patient was on Bipap with limited apical images. Procedure Details * Limited views were obtained. Left Ventricle * The left ventricle is normal in size. * There is normal left ventricular wall thickness. * Ejection Fraction = 65-70%. * Left ventricular systolic function is normal. * No obvious regional wall motion abnormalities. Right Ventricle * The right ventricle is normal in size and function. Atria * The left atrium is mildly dilated. * The right atrium is mildly dilated. Mitral Valve * The mitral valve is grossly normal. * There is trace mitral regurgitation. Tricuspid Valve * The tricuspid valve is not well visualized, but is grossly normal. * There is trace tricuspid regurgitation. * Normal PA pressures. Aortic Valve * The aortic valve is trileaflet. Pulmonic Valve * The pulmonic valve is not well seen, but is grossly normal. Pericardium/Pleural * Trivial pericardial effusion. Great Vessels * Dilated inferior vena cava with reduced collapsability with sniff indicates an elevated right atrial pressure of 15 mmHg MMode 2D Measurements and Calculations IVSd 0.98 cm IVSs 1.3 cm LVIDd 4.3 cm LVIDs 2.4 cm LVPWd 1.0 cm LVPWs 1.8 cm IVS/LVPW 0.93 FS 43.1 % EDV(Teich) 82.9 ml ESV(Teich) 21.1 ml EF(Teich) 74.6 % EDV(cubed) 79.3 ml ESV(cubed) 14.6 ml EF(cubed) 81.6 % % IVS thick 38.1 % % LVPW thick 72.1 % LV mass(C)d 144.3 grams LV mass(C)dI 61.8 grams/m\S\2 LV mass(C)s 133.7 grams LV mass(C)sI 57.3 grams/m\S\2 SV(Teich) 61.8 ml SI(Teich) 26.5 ml/m\S\2 SV(cubed) 64.7 ml SI(cubed) 27.7 ml/m\S\2 Ao root diam 2.8 cm Ao root area 5.9 cm\S\2 LA dimension 3.6 cm LA/Ao 1.3 Doppler Measurements and Calculations PA V2 max 126.0 cm/sec PA max PG 6.3 mmHg TR max laura 136.7 cm/sec
--- NOTE | 2017-02-07 09:32 | Progress Note ---
Internal Med Progress Note Date of Service: Feb 07, 2017. Provider Documentation: SUBJECTIVE: Seen and examined at bedside States SOB, cough is better Reports left hip pain intermittently Denies chest pain, nausea, abd pain No other complaints OBJECTIVE: Vital Signs-as noted below Physical Exam: General Appearance:Obese, no apparent distress Head: normocephalic, Atraumatic Eyes: normal inspection, EOMI, PERRL Neck: supple, Trachea midline Respiratory/Chest: Decreased breath sounds, CTA Cardiovascular: Irregularly, Irregular, No murmur Abdomen/GI:Soft, Non tender, Bowel sounds present Extremities/Musculoskelatal:normal inspection, 2+ B/L edema Neurologic/Psych:AAOX3, grossly no focal neurological deficits Skin: normal color, warm Lab data as noted below. ASSESSMENT & PLAN: Acute Respiratory failure with Hypoxia: H/O COPD, JITENDRA on CPAP CT suggestive of LLL Possible Pneumonia; RUL infectious bronchiolitis; tracheobronchomalacia Influenza A positive Venous Doppler Negative for DVT Patient on Eliquis for afib Continue IV Ceftriaxone, Levaquin, Tamiflu IV Solumedrol, Nebs, Oxygen Support Blood/Sputum/Urine cultures pending MRSA screen Negative PARVIZ Unknown baseline Cr Cr:3.94>>3.91 Continue IVF Hold HCTZ/Lisinopril Avoid nephrotoxic agents when possible Rhabdomyolysis: Pt spent several days sitting in his truck: CPK: 2711 Hold Pravastatin Continue IV Fluids Monitor CPK Afib continue metoprolol Continue metoprolol hold eliquis until renal function better On heparin IV Left Hip Pain: XRAY HIP: Lucency along the acetabular component of the total left hip arthroplasty could suggest particle disease Ortho eval pending PT/OT HTN: continue metoprolol hold lisinopril/HCTZ monitor BP Dyslipidemia Hold statin JITENDRA CPAP QHS DVT Px: On IV heparin Code Status: DNR Follows with [facility] for routine care per pt DISPOSITION Monitor in ICU PROCEDURES: CT chest: 1. Extensive right lower lobe airspace opacity with air bronchograms and mild volume loss. Mild left lower lobe airspace opacity. The findings could reflect pneumonia or atelectasis. 2. Mild tree-in-bud opacities within the right upper lobe which suggests an infectious bronchiolitis. 3. Moderate emphysema. 4. Moderate cardiomegaly and small pericardial effusion. 5. 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 Venous Doppler: No evidence of deep venous thrombus within the bilateral lower extremities. L femur X ray: No acute osseous injury of the visualized portion of the left femur. L Hip X ray: 1. Lucency along the acetabular component of the total left hip arthroplasty could suggest particle disease. 2. No acute osseous injury of the pelvis or left hip. Vital Signs: Date Time Temp Pulse Resp B/P (MAP) Pulse Ox O2 Delivery O2 Flow Rate FiO2 02/07/17 07:15 95 20 95 Nasal Cannula 50.0 90 02/07/17 06:01 99 20 119/59 (79) 88 High Flow Oxygen 85 02/07/17 04:01 36.7 107 19 122/78 (93) 93 High Flow Oxygen 75 02/07/17 04:00 High Flow Oxygen 02/07/17 03:01 99 22 119/64 (82) 92 High Flow Oxygen 75 02/07/17 02:17 110 20 91 Nasal Cannula 50.0 80 02/07/17 02:01 96 20 120/75 (90) 92 High Flow Oxygen 75 02/07/17 01:01 104 20 108/66 (80) 90 High Flow Oxygen 75 02/07/17 00:02 37.3 101 19 116/53 (74) 94 High Flow Oxygen 75 02/07/17 00:00 High Flow Oxygen 02/06/17 23:54 108 22 99/58 (72) 95 High Flow Oxygen 75 02/06/17 23:01 105 20 99/58 (72) 94 High Flow Oxygen 75 02/06/17 22:01 110 22 105/64 (78) 91 BiPAP 02/06/17 21:19 108 90 50 02/06/17 21:10 36.7 118 22 96/58 88 Partial Rebreather 15.0 02/06/17 21:07 113 02/06/17 21:03 97/47 02/06/17 20:37 108 18 91 BiPAP 02/06/17 20:31 104/65 02/06/17 20:07 121 17 94 BiPAP 02/06/17 20:01 104/54 02/06/17 19:51 103/56 02/06/17 19:44 109 97 50 02/06/17 19:37 108 19 90 Oxymask 15.0 02/06/17 19:31 87/56 02/06/17 19:09 83/47 02/06/17 19:07 128 19 87 Oxymask 15.0 02/06/17 19:01 96/46 02/06/17 18:37 152 24 02/06/17 18:32 128 98/53 89 Non-Rebreather 15.0 02/06/17 18:30 130 20 81 Non-Rebreather 15.0 02/06/17 18:01 85/53 02/06/17 18:00 145 25 84 Non-Rebreather 15.0 02/06/17 17:31 105/62 02/06/17 17:30 124 28 86 Non-Rebreather 15.0 02/06/17 17:08 132 16 103/48 88 Non-Rebreather 15.0 02/06/17 16:51 120/51 02/06/17 16:43 129 22 85 Non-Rebreather 15.0 02/06/17 16:31 117/55 02/06/17 16:13 104 20 86 Nebulizer 8.0 02/06/17 16:01 98/67 02/06/17 15:43 107 20 88 Nebulizer 8.0 02/06/17 15:31 113/62 02/06/17 15:21 90 Non-Rebreather 15.0 02/06/17 15:19 102/60 02/06/17 15:15 107 02/06/17 15:13 122 19 88 Non-Rebreather 15.0 02/06/17 15:12 102/60 02/06/17 15:11 36.7 100 19 89 Non-Rebreather 15.0 02/06/17 15:11 75 Room Air Lab Results: Results Past 24 Hours Test 02/06/17 15:20 02/06/17 15:30 02/06/17 15:34 02/06/17 21:32 Range/Units White Blood Count 8.34 4.8-10.8 K/uL Red Blood Count 4.12 4.7-6.1 M/uL Hemoglobin 13.3 14.0-18.0 g/dL Hematocrit 38.5 42-52 % Mean Corpuscular Volume 93.4 80-100 fL Mean Corpuscular Hemoglobin 32.3 25-34 pg Mean Corpuscular Hemoglobin Concent 34.5 32-36 g/dl Platelet Count 139 130-400 K/uL Mean Platelet Volume 11.4 7.4-10.4 fL Neutrophils (%) (Auto) 84.9 % Lymphocytes (%) (Auto) 6.4 % Monocytes (%) (Auto) 8.5 % Eosinophils (%) (Auto) 0.0 % Basophils (%) (Auto) 0.0 % Neutrophils # (Auto) 7.08 1.4-6.5 K/uL Lymphocytes # (Auto) 0.53 1.2-3.4 K/uL Monocytes # (Auto) 0.71 0.11-0.59 K/uL Eosinophils # (Auto) 0.00 0-0.5 K/uL Basophils # (Auto) 0.00 0-0.2 K/uL RDW Standard Deviation 49.3 36.4-46.3 fL RDW Coefficient of Variation 14.5 11.5-14.5 % Immature Granulocyte % (Auto) 0.2 % Immature Granulocyte # (Auto) 0.02 0.00-0.02 K/uL Erythrocyte Sedimentation Rate 50 0-14 mm/hr Prothrombin Time 10.9 9.0-12.0 SECONDS Prothromb Time International Ratio 1.0 0.9-1.1 Activated Partial Thromboplast Time 30.8 21.0-31.0 SECONDS Partial Thromboplastin Ratio 1.2 Sodium Level 131 136-145 mmol/L Potassium Level 3.8 3.5-5.1 mmol/L Chloride Level 101 98-107 mmol/L Carbon Dioxide Level 25 21-32 mmol/L Anion Gap 5.0 3-11 mmol/L Blood Urea Nitrogen 93 7-18 mg/dl Creatinine 3.94 0.60-1.40 mg/dl Est Creatinine Clear Calc Drug Dose 19.7 ml/min Estimated GFR () 15.7 Estimated GFR (Non- 13.6 BUN/Creatinine Ratio 23.6 10-20 Random Glucose 151 70-99 mg/dl Calcium Level 8.6 8.5-10.1 mg/dl Phosphorus Level 4.7 2.5-4.9 mg/dl Magnesium Level 2.1 1.8-2.4 mg/dl Total Bilirubin 1.0 0.2-1 mg/dl Aspartate Amino Transf (AST/SGOT) 117 15-37 U/L Alanine Aminotransferase (ALT/SGPT) 52 12-78 U/L Alkaline Phosphatase 63 45-117 U/L Total Creatine Kinase 2711 3059 39-308 U/L Creatine Kinase MB 12.1 10.5 0.5-3.6 ng/ml Creatine Kinase MB Ratio 0.4 0.3 0-3.0 Troponin I 0.042 0.073 0-0.045 ng/ml C-Reactive Protein 21.90 0-0.29 mg/dl Pro-B-Type Natriuretic Peptide 789 0-1800 pg/ml Total Protein 7.5 6.4-8.2 gm/dl Albumin 3.2 3.4-5.0 gm/dl Globulin 4.3 2.5-4.0 gm/dl Albumin/Globulin Ratio 0.7 0.9-2 Lipase 143 73-393 U/L Venous Blood pH 7.29 7.36-7.41 Venous Blood Partial Pressure CO2 48 38.0-50.0 mmHg Venous Blood Partial Pressure O2 51 mmHg Venous Blood HCO3 23 mmol/L Venous Blood Oxygen Saturation 79.2 % Venous Blood Base Excess -4.1 mEq/L Bedside Lactic Acid Venous 1.53 0.90-1.70 mmol/L Test 02/06/17 22:28 02/06/17 23:57 02/07/17 02:12 02/07/17 05:57 Range/Units Bedside Glucose 98 169 70-99 mg/dl Influenza Type A (RT-PCR) POS for Influ A NEG Influenza Type A Antigen Neg for Influ A NEG Influenza Type B Antigen Neg for Influ B NEG Influenza Type B (RT-PCR) Neg for Influ B NEG White Blood Count 6.80 4.8-10.8 K/uL Red Blood Count 3.70 4.7-6.1 M/uL Hemoglobin 11.8 14.0-18.0 g/dL Hematocrit 34.8 42-52 % Mean Corpuscular Volume 94.1 80-100 fL Mean Corpuscular Hemoglobin 31.9 25-34 pg Mean Corpuscular Hemoglobin Concent 33.9 32-36 g/dl Platelet Count 115 130-400 K/uL Mean Platelet Volume 11.1 7.4-10.4 fL Neutrophils (%) (Auto) 89.9 % Lymphocytes (%) (Auto) 5.1 % Monocytes (%) (Auto) 4.7 % Eosinophils (%) (Auto) 0.0 % Basophils (%) (Auto) 0.0 % Neutrophils # (Auto) 6.11 1.4-6.5 K/uL Lymphocytes # (Auto) 0.35 1.2-3.4 K/uL Monocytes # (Auto) 0.32 0.11-0.59 K/uL Eosinophils # (Auto) 0.00 0-0.5 K/uL Basophils # (Auto) 0.00 0-0.2 K/uL RDW Standard Deviation 50.1 36.4-46.3 fL RDW Coefficient of Variation 14.6 11.5-14.5 % Immature Granulocyte % (Auto) 0.3 % Immature Granulocyte # (Auto) 0.02 0.00-0.02 K/uL Echinocytes 1+ Activated Partial Thromboplast Time 50.8 21.0-31.0 SECONDS Partial Thromboplastin Ratio 2.0 Sodium Level 135 136-145 mmol/L Potassium Level 4.1 3.5-5.1 mmol/L Chloride Level 105 98-107 mmol/L Carbon Dioxide Level 22 21-32 mmol/L Anion Gap 8.0 3-11 mmol/L Blood Urea Nitrogen 93 7-18 mg/dl Creatinine 3.91 0.60-1.40 mg/dl Est Creatinine Clear Calc Drug Dose 19.9 ml/min Estimated GFR () 15.9 Estimated GFR (Non- 13.7 BUN/Creatinine Ratio 23.7 10-20 Random Glucose 136 70-99 mg/dl Calcium Level 8.0 8.5-10.1 mg/dl Phosphorus Level 5.7 2.5-4.9 mg/dl Magnesium Level 2.0 1.8-2.4 mg/dl Total Bilirubin 0.6 0.2-1 mg/dl Direct Bilirubin 0.3 0-0.2 mg/dl Aspartate Amino Transf (AST/SGOT) 128 15-37 U/L Alanine Aminotransferase (ALT/SGPT) 47 12-78 U/L Alkaline Phosphatase 51 45-117 U/L Total Creatine Kinase 3571 39-308 U/L Creatine Kinase MB 9.7 0.5-3.6 ng/ml Creatine Kinase MB Ratio 0.3 0-3.0 Troponin I 0.078 0-0.045 ng/ml Total Protein 6.3 6.4-8.2 gm/dl Albumin 2.5 3.4-5.0 gm/dl Triglycerides Level 111 0-150 mg/dl Cholesterol Level 64 0-200 mg/dl HDL Cholesterol 21 mg/dl LDL Cholesterol, Calculated 21 mg/dl VLDL Cholesterol, Calculated 22 mg/dl Cholesterol/HDL Ratio 3.0 Procalcitonin 1.27 0-0.5 ng/ml Test 02/07/17 06:01 Range/Units Blood Gas Sample Site R Radial Bedside Blood Gas pH (LAB) 7.34 7.35-7.45 Bedside Blood Gas pCO2 (LAB) 36 35-46 mmHg Bedside Blood Gas pO2 (LAB) 55 80-95 mmHg Bedside Blood Gas HCO3 (LAB) 20 19-24 meq/L Bedside Blood Gas Total CO2 21 24-31 mEq/l Bedside Blood Gas Base Excess (LAB) -6.0 -9-1.8 meq/L Bedside Blood Gas O2 Saturation 87.0 90-95 % Lan Test Pass Oxygen Delivery Device Hi Donell Can Bedside FiO2 80 % Microbiology Results 02/06/17 Blood Culture, Received Pending 02/06/17 Blood Culture, Received Pending 02/06/17 Gram Stain - Final, Resulted 02/06/17 Sputum Culture, Resulted Pending
[2017-02-07] MEDS: ALFUZosin TAB 10 MG TAB PO SCH (09:44)
[2017-02-07] MEDS: METOPROLOL SUCC 25MG EXT REL TAB PO SCH (09:44)
[2017-02-07] MEDS: PRAVASTATIN SOD 40 MG TAB PO SCH (09:45)
[2017-02-07] MEDS: OSELTAMIVIR PHOSPHATE SUSP 30 MG/5 ML UDP PO SCH (09:45)
[2017-02-07] MEDS: SODIUM CHLORIDE 0.9% 1000ML 1,000 ML IV SCH ×2 (09:46→18:28)
--- NOTE | 2017-02-07 10:00 | NUR ---
Continues on high flow nasal cannula and tolerating well. Pt has been on phone updating his family who is out of state.
--- NOTE | 2017-02-07 11:28 | Pharmacy Progress Note ---
Glycemic Control Intl Consult Date of Service Feb 07, 2017. Scope Glycemic Pharmacist consulted by Dr Maddox on 02/07/17 for glycemic control and to write orders per [facility] inpatient glycemic control protocol Objective Weight (Kilograms): 119.500 Accuchecks BSG (last 24hrs): Test 02/06/17 15:20 02/06/17 22:28 02/07/17 02:12 02/07/17 05:57 Random Glucose 151 mg/dl (70-99) 136 mg/dl (70-99) Bedside Glucose 98 mg/dl (70-99) 169 mg/dl (70-99) Laboratory Data (last 24hrs) Test 02/06/17 15:20 02/07/17 02:12 Anion Gap 5.0 mmol/L 8.0 mmol/L BUN/Creatinine Ratio 23.6 23.7 Blood Urea Nitrogen 93 mg/dl 93 mg/dl Creatinine 3.94 mg/dl 3.91 mg/dl Potassium Level 3.8 mmol/L 4.1 mmol/L Sodium Level 131 mmol/L 135 mmol/L White Blood Count 8.34 K/uL 6.80 K/uL Red Blood Count 4.12 M/uL 3.70 M/uL Hemoglobin 13.3 g/dL 11.8 g/dL Hematocrit 38.5 % 34.8 % Mean Corpuscular Volume 93.4 fL 94.1 fL Mean Corpuscular Hemoglobin 32.3 pg 31.9 pg Mean Corpuscular Hemoglobin Concent 34.5 g/dl 33.9 g/dl Platelet Count 139 K/uL 115 K/uL Mean Platelet Volume 11.4 fL 11.1 fL Neutrophils (%) (Auto) 84.9 % 89.9 % Lymphocytes (%) (Auto) 6.4 % 5.1 % Monocytes (%) (Auto) 8.5 % 4.7 % Eosinophils (%) (Auto) 0.0 % 0.0 % Basophils (%) (Auto) 0.0 % 0.0 % Neutrophils # (Auto) 7.08 K/uL 6.11 K/uL Lymphocytes # (Auto) 0.53 K/uL 0.35 K/uL Monocytes # (Auto) 0.71 K/uL 0.32 K/uL Eosinophils # (Auto) 0.00 K/uL 0.00 K/uL Basophils # (Auto) 0.00 K/uL 0.00 K/uL Recent Pertinent Medications Outpatient Anti-diabetic Regimen: * None * A1c on order for 02/08/17 Risk Factors for Insulin Resistance: * Steroids: Methylprednisolone 40 mg IV q8h * Infection: Influenza A, also with possible PNA * IVF: Heparin gtt, NS @ 125 mL/hr * Diet: NPO Assessment & Plan ASSESSMENT: * 81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 HbA1c ordered for tomorrow. * Highest BSG thus far is 169 mg/dL however patient is on steroids therefore may trend up. Despite this, increases may not be too significant as patient is currently NPO and steroids affect post-prandial BSG's the most * Will order weight based Novolog for now * Will add on Lantus if any BSG > 180 mg/dL, but will be conservative with dose 2nd NPO status PLAN FOR INPATIENT GLYCEMIC CONTROL: * Basal insulin with LANTUS 15 units SQ x1 for any BSG > 180 mg/dL * Correctional Insulin with NOVOLOG per scale Q6hrs while NPO * Goal Range: Low 120 mg/dL - High 160 mg/dL * Correction Factor: 20 mg/dL/unit * Nutritional / Prandial insulin per carb ratio of 1 unit per 7 grams CHO consumed * Please note that the plan above was derived based on current level of insulin resistance and hospital stress. These recommendations are appropriate for inpatient admission only. Plan of care upon discharge will need to be reassessed to avoid potential outpatient hypo/hyperglycemia. Thank you.
--- NOTE | 2017-02-07 12:00 | NUR ---
Pt NPO until seen by ortho. VS remain stable. Continues on high flow nasal cannula.
--- NOTE | 2017-02-07 12:21 | NUR ---
case management note. social service for D/C planning. met with pt at bedside. 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 pt is A&O and states he lives in [place] with his in a 2 story house with 5 BEN. He had a bathroom on the main level but no bedroom. He is independent with all activities and drives. He states he has a cane and walker at home. He does not have any oxygen or HH services. role of complex case manager explained. pt states he is planning to return home at D/C. pts is listed as contact but no contact number listed. pt provided his 's cell phone number ([phone]) and gives permission to contact her. lauren notified to update contact info.pt remains acutely ill and his needs are uncertain at this time. case management to follow.
[2017-02-07] MEDS: INSULIN ASPART 100 UNITS/ML 3 ML PEN SC SCH ×3 (12:40→22:35)
--- NOTE | 2017-02-07 13:34 | CONSULTATION REPORT ---
DATE OF CONSULTATION: 02/06/2017 HISTORY OF PRESENT ILLNESS: The patient is a 81-year-old white male who presents with complaints of left hip, leg pain and other multiple medical issues include influenza A and is currently in renal failure, presents with complains also of left hip pain. He had a left total hip arthroplasty 7 years ago, relates 3 months ago having an episode of feeling like his hip was shifting of him, 3 weeks ago after having had a recent carpal tunnel surgery done. He relates having another episode of pain in his hip where to avoid falling. 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 There was a questionable lucency involving his greater trochanter, which is in anatomic excellent position. He relates his leg pain is somewhat better today than what was yesterday. His clinical examination is otherwise relatively benign Will discuss the possibility of bone scan, although with his renal situation may impede his ability to do such ASSESSMENT AND PLAN: greater troch left hip minimal avulsion fracture of greater trochanter of left hip status post total hip arthroplasty 7 years ago elsewhere. Will follow with you. YULISSA
--- NOTE | 2017-02-07 14:00 | NUR ---
Repositioned in bed and skin care provided. VS stable. Continues to tolerate high flow nasal cannula. Watching tv
--- NOTE | 2017-02-07 16:00 | NUR ---
C/o hip pain with repositioning. Tylenol provided. Continue on Heparin drip and high flow nasal cannula. VS stable.
[2017-02-07] MEDS: ACETAMINOPHEN 325 MG TAB PO PRN ×2 (16:02→22:08)
--- NOTE | 2017-02-07 18:00 | NUR ---
Watching tv. Denies any pain at current time.
--- NOTE | 2017-02-07 20:00 | NUR ---
A: Assessment completed. Vital signs as documented. 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 Pt awake alert and oriented voicing no complaints other than hunger. Discussed with Yisel Toth PA-C, heart healthy diet ordered, tray delivered and pt tolerating without difficulty. Pt able to speak and eat with minimal shortness of breath. Hi-flow oxygen therapy in use at 85% 15L. Heparin gtt at 33 ml/hour, NSS at 125 ml/hour. Lung sounds with diminished wheezes, moist cough. Alaniz catheter intact, patent draining yellow urine. No s/s of acute distress. Call abdalla within reach. Will continue to monitor closely. See EMR nursing assessment documentation for further details.
--- NOTE | 2017-02-07 22:00 | NUR ---
A: Vital signs as documented. Afib with PVCs on the cardiac rehabilitation program director. Pt turned and repositioned. I&O as documented. No s/s of acute distress. Call abdalla within reach. Will continue to monitor.
--- NOTE | 2017-02-07 22:10 | Critical Care Progress Note ---
Critical Care Progress Note Date of Service Feb 07, 2017. ICU Day ICU Day Number: [address] Maddox Subjective Pain well-controlled Current SOFA Score SOFA Score Response (Comments) Value SaO2 / FIO2 67 - 141 3 Platelets (x10) < 150 1 Bilirubin (mg/dL) < 1.2 0 [place] Coma Score 15 0 Level of Hypotension No Hypotension 0 Creatinine (mg/dL) 3.5 - 4.9 3 Total 7 Assessment & Plan (1) COPD (chronic obstructive pulmonary disease) (2) Renal failure (3) Acute respiratory failure (4) Rhabdomyolysis (5) Hypoxia (6) Left hip pain (7) COPD exacerbation (8) Afib (9) HTN (hypertension) (10) Dyslipidemia (11) JITENDRA (obstructive sleep apnea) Reason Critically Ill: 81-year-old male with acute on chronic hypoxic respiratory failure with acute kidney injury PLAN: Neuro: Pain controlled, appreciate orthopedics consult Resp: Severe COPD with greater than [id number] smoking history Acute on chronic hypoxic respiratory failure * Tolerating high flow nasal cannula * Continue IV steroids Influenza A pneumonia Community-acquired pneumonia as secondary bacterial infection in setting of influenza A * Sputum culture pending * Rocephin and Levaquin CV: Atrial fibrillation Reviewed echocardiogram, normal right ventricle size * Chronic anticoagulation secondary to atrial fibrillation Fluids/Renal: Acute kidney injury * Likely prerenal in origin * Continue to monitor I's and O's, change normal saline to normal salt 100 ML's per hour ID: Continue Tamiflu continue Rocephin, continue Levaquin GI/Nutrition: Regular diet diet Heme: Anemia thrombocytopenia Endocrine: Mild hyperglycemia, within goal range likely secondary to steroids I have personally spent 50 minutes of critical care time in the direct management of this patient. This is a life/limb threatening event. This includes time spent evaluating patient, direct bedside care, chart review, placing orders, interpretation of diagnostic studies, discussion with consultants, patient, and family members, as well as other required patient management activities. This time is exclusive of all separately billable procedures, and teaching time and separate from and in addition to any other critical care service time. Consults & Procedures Consultants: Orthopedics Procedures: NA Data Medications: Current Inpatient Medications Medications (Trade) Dose Ordered Sig/Doreen Route Start Time Stop Time Status Last Admin Dose Admin Sodium Chloride 1,000 ml @ 125 mls/hr Q8H IV 02/06/17 22:00 1/17/18 21:59 02/07/17 18:28 125 MLS/HR Acetaminophen (Tylenol Tab) 650 mg Q4H PRN PO 02/06/17 18:00 03/08/17 17:59 02/07/17 16:02 650 MG Nitroglycerin (Nitrostat Tab) 0.4 mg UD PRN SL 02/06/17 18:00 03/08/17 17:59 Morphine Sulfate (MoRPHine SULFATE INJ) 2 mg Q2H PRN IV 02/06/17 18:00 02/20/17 17:59 Methylprednisolone Sodium Succinate 40 mg/Syringe 0.64 ml @ 1.5 mls/min Q8H IV 02/06/17 22:00 03/08/17 21:59 02/07/17 15:22 1.5 MLS/MIN Alfuzosin HCl (Uroxatral Tab) 10 mg DAILY PO 02/07/17 09:00 03/09/17 08:59 02/07/17 09:44 10 MG Metoprolol Succinate (Toprol Xl Tab) 25 mg DAILY PO 02/07/17 09:00 03/09/17 08:59 02/07/17 09:44 25 MG Pravastatin Sodium (Pravachol Tab) 40 mg DAILY PO 02/07/17 09:00 03/09/17 08:59 Future Hold 02/07/17 09:45 40 MG Metoprolol Tartrate (Lopressor Iv) 2.5 mg Q4 PRN IV 02/06/17 20:00 03/08/17 19:59 Levofloxacin (Consult) 1 ea UD PRN N/A 02/06/17 21:30 03/08/17 21:29 Levofloxacin 500 mg/Prmx 100 ml @ 100 mls/hr Q2D@1600 IV 02/08/17 16:00 02/13/17 23:59 Ipratropium [place] (Atrovent 0.02% 0.5MG/2.5ML Neb) 0.5 mg Q6R INH 02/07/17 03:00 03/09/17 02:59 02/07/17 19:30 0.5 MG Levalbuterol (Xopenex 1.25MG/ 0.5ML Neb) 1.25 mg Q6R INH 02/07/17 03:00 03/09/17 02:59 02/07/17 19:30 1.25 MG Ipratropium [place] (Atrovent 0.02% 0.5MG/2.5ML Neb) 0.5 mg Q2H PRN INH 02/06/17 22:00 03/08/17 21:59 Levalbuterol (Xopenex 1.25MG/ 0.5ML Neb) 1.25 mg Q2H PRN INH 02/06/17 22:00 03/08/17 21:59 Ceftriaxone Sodium 1 gm/ Dextrose 50 ml @ 100 mls/hr DAILY@2300 IV 02/07/17 01:30 02/14/17 01:29 02/07/17 02:00 100 MLS/HR Oseltamivir Phosphate (Tamiflu Susp) 30 mg Q24H PO 02/07/17 09:00 02/12/17 08:59 02/07/17 09:45 30 MG Heparin Sodium/ Dextrose 500 ml @ 33 mls/hr [id number] PRN IV 02/07/17 01:45 03/09/17 01:44 Miscellaneous Information (Consult Glycemic Management Pharmacy) 1 ea UD PRN N/A 02/07/17 08:39 03/09/17 08:38 Fluticasone/ Vilanterol (Breo Ellipta 200-25 Mcg/Inh) 1 inha DAILY INH 02/08/17 09:00 03/10/17 08:59 Insulin Aspart (novoLOG ASPART) SLIDING SCALE ACHS SC 02/08/17 22:00 03/10/17 21:59 I & O: 24-Hour Column 02/08/17 08:00 Intake Total 1745 ml Output Total 1400 ml Balance 345 ml Vital Signs: Date Time Temp Pulse Resp B/P (MAP) Pulse Ox O2 Delivery O2 Flow Rate FiO2 02/07/17 20:00 92 High Flow Oxygen 50.0 02/07/17 20:00 36.7 02/07/17 19:30 83 20 90 Nasal Cannula 50.0 75 02/07/17 18:00 89 143/82 (102) 90 02/07/17 16:00 36.9 86 24 119/62 (81) 89 High Flow Oxygen 50.0 85 02/07/17 16:00 High Flow Oxygen 02/07/17 14:07 88 18 89 Nasal Cannula 50.0 85 02/07/17 14:00 93 22 134/88 (103) 94 High Flow Oxygen 50.0 85 02/07/17 12:00 36.8 92 22 129/84 (99) 92 High Flow Oxygen 50.0 85 02/07/17 12:00 High Flow Oxygen 02/07/17 10:00 93 20 121/85 (97) 89 High Flow Oxygen 50.0 85 02/07/17 08:00 36.7 95 20 140/75 (96) 91 High Flow Oxygen 50.0 85 02/07/17 08:00 High Flow Oxygen 85 02/07/17 08:00 High Flow Oxygen 02/07/17 07:15 95 20 95 Nasal Cannula 50.0 90 02/07/17 06:01 99 20 119/59 (79) 88 High Flow Oxygen 85 02/07/17 04:01 36.7 107 19 122/78 (93) 93 High Flow Oxygen 75 02/07/17 04:00 High Flow Oxygen 02/07/17 03:01 99 22 119/64 (82) 92 High Flow Oxygen 75 02/07/17 02:17 110 20 91 Nasal Cannula 50.0 80 02/07/17 02:01 96 20 120/75 (90) 92 High Flow Oxygen 75 02/07/17 01:01 104 20 108/66 (80) 90 High Flow Oxygen 75 02/07/17 00:02 37.3 101 19 116/53 (74) 94 High Flow Oxygen 75 02/07/17 00:00 High Flow Oxygen 02/06/17 23:54 108 22 99/58 (72) 95 High Flow Oxygen 75 02/06/17 23:01 105 20 99/58 (72) 94 High Flow Oxygen 75 02/06/17 22:01 110 22 105/64 (78) 91 BiPAP Laboratory Results: Last 24 Hours Test 02/06/17 22:28 02/06/17 23:57 02/07/17 02:12 02/07/17 05:57 Bedside Glucose 98 mg/dl 169 mg/dl Influenza Type A (RT-PCR) POS for Influ A Influenza Type A Antigen Neg for Influ A Influenza Type B Antigen Neg for Influ B Influenza Type B (RT-PCR) Neg for Influ B White Blood Count 6.80 K/uL Red Blood Count 3.70 M/uL Hemoglobin 11.8 g/dL Hematocrit 34.8 % Mean Corpuscular Volume 94.1 fL Mean Corpuscular Hemoglobin 31.9 pg Mean Corpuscular Hemoglobin Concent 33.9 g/dl Platelet Count 115 K/uL Mean Platelet Volume 11.1 fL Neutrophils (%) (Auto) 89.9 % Lymphocytes (%) (Auto) 5.1 % Monocytes (%) (Auto) 4.7 % Eosinophils (%) (Auto) 0.0 % Basophils (%) (Auto) 0.0 % Neutrophils # (Auto) 6.11 K/uL Lymphocytes # (Auto) 0.35 K/uL Monocytes # (Auto) 0.32 K/uL Eosinophils # (Auto) 0.00 K/uL Basophils # (Auto) 0.00 K/uL RDW Standard Deviation 50.1 fL RDW Coefficient of Variation 14.6 % Immature Granulocyte % (Auto) 0.3 % Immature Granulocyte # (Auto) 0.02 K/uL Echinocytes 1+ Activated Partial Thromboplast Time 50.8 SECONDS Partial Thromboplastin Ratio 2.0 Sodium Level 135 mmol/L Potassium Level 4.1 mmol/L Chloride Level 105 mmol/L Carbon Dioxide Level 22 mmol/L Anion Gap 8.0 mmol/L Blood Urea Nitrogen 93 mg/dl Creatinine 3.91 mg/dl Est Creatinine Clear Calc Drug Dose 19.9 ml/min Estimated GFR () 15.9 Estimated GFR (Non- 13.7 BUN/Creatinine Ratio 23.7 Random Glucose 136 mg/dl Calcium Level 8.0 mg/dl Phosphorus Level 5.7 mg/dl Magnesium Level 2.0 mg/dl Total Bilirubin 0.6 mg/dl Direct Bilirubin 0.3 mg/dl Aspartate Amino Transf (AST/SGOT) 128 U/L Alanine Aminotransferase (ALT/SGPT) 47 U/L Alkaline Phosphatase 51 U/L Total Creatine Kinase 3571 U/L Creatine Kinase MB 9.7 ng/ml Creatine Kinase MB Ratio 0.3 Troponin I 0.078 ng/ml Total Protein 6.3 gm/dl Albumin 2.5 gm/dl Triglycerides Level 111 mg/dl Cholesterol Level 64 mg/dl HDL Cholesterol 21 mg/dl LDL Cholesterol, Calculated 21 mg/dl VLDL Cholesterol, Calculated 22 mg/dl Cholesterol/HDL Ratio 3.0 Procalcitonin 1.27 ng/ml Test 02/07/17 06:01 02/07/17 12:30 02/07/17 18:26 Blood Gas Sample Site R Radial Bedside Blood Gas pH (LAB) 7.34 Bedside Blood Gas pCO2 (LAB) 36 mmHg Bedside Blood Gas pO2 (LAB) 55 mmHg Bedside Blood Gas HCO3 (LAB) 20 meq/L Bedside Blood Gas Total CO2 21 mEq/l Bedside Blood Gas Base Excess (LAB) -6.0 meq/L Bedside Blood Gas O2 Saturation 87.0 % Lan Test Pass Oxygen Delivery Device Hi [place]ell Can Bedside FiO2 80 % Bedside Glucose 162 mg/dl 137 mg/dl Problem Qualifiers (1) Renal failure: Renal failure chronicity: acute Acute renal failure type: unspecified Qualified Codes: N17.9 - Acute kidney failure, unspecified (2) Rhabdomyolysis: Rhabdomyolysis type: non-traumatic Qualified Codes: M62.82 - Rhabdomyolysis (3) Afib: Atrial fibrillation type: chronic Qualified Codes: I48.2 - Chronic atrial fibrillation
[2017-02-07] MEDS: NORMOSOL R 1,000 ML IV SCH (22:35)
[2017-02-07] MEDS: HEPARIN 25,000 UNIT/500ML D5W 500 ML IV PRN (22:36)
[2017-02-07] MEDS: MoRPHine SULFATE 2 MG/ML CARP IV PRN (22:52)
--- NOTE | 2017-02-07 23:59 | NUR ---
A: Assessment completed. Vital signs as documented. Afib on the bulk picker, rate 80-90's. Pt awake alert and oriented recently voicing complaints of pain. Medicated with PO PRN Tylenol followed by IV PRN Morphine, see EMAR. CPAP now in place. Heparin gtt at 33 ml/hour, Normosol R at 100 ml/hour infusing without difficulty. Lung sounds with diminished wheezes, moist cough. Alaniz catheter intact, patent draining yellow urine. No s/s of acute distress. Pt declines PM care and to be turned at times. Call abdalla within reach. Will continue to monitor closely. See EMR nursing assessment documentation for further details.
[2017-02-08] VITALS (26 sets, daily range): BP systolic 85–170; BP diastolic 48–99; PULSE 74–105; TEMP 36.3–36.9; O2SAT 89–95
--- NOTE | 2017-02-08 02:00 | NUR ---
A: Vital signs as documented. Afib on the classroom monitor. Pt resting in bed with eyes closed, respirations regular even unlabored. CPAP in place. Oxygen saturations low-mid 90%'s. No s/s of acute distress. Call abdalla within reach. Will continue to monitor.
[2017-02-08] MEDS: IPRATROPIUM BROMIDE NEB SOLN 0.02% 2.5 ML VIAL INH SCH ×4 (02:23→19:15)
[2017-02-08] MEDS: LEVALBUTEROL 1.25MG/0.5ML NEB INH SCH ×4 (02:23→19:15)
--- NOTE | 2017-02-08 04:00 | NUR ---
A: Assessment completed. Vital signs as documented. Afib on the care consultant, rate 80-90's. Pt resting quietly in bed at this time with eyes closed, awakens easily to verbal stimuli. Pt voices no complaints. Pt refuses to be turned at this time. CPAP remains in place. Heparin gtt at 33 ml/hour, Normosol R at 100 ml/hour infusing without difficulty. Alaniz catheter intact, patent draining yellow urine. No s/s of acute distress. Call abdalla within reach. Will continue to monitor closely. See EMR nursing assessment documentation for further details.
[2017-02-08 05:33] LABS: HEMATOCRIT 32.8 % (42-52); HEMOGLOBIN 11.1 g/dL (14.0-18.0); MEAN CORPUSCULAR HEMOGLOBIN 31.8 pg (25-34); MEAN CORPUSCULAR HGB CONC 33.8 g/dl (32-36); MEAN PLATELET VOLUME 11.3 fL (7.4-10.4); PLATELET COUNT 126 K/uL (130-400); RED CELL DISTRIBUTION WIDTH CV 14.2 % (11.5-14.5); WHITE BLOOD COUNT 5.47 K/uL (4.8-10.8)
[2017-02-08] MEDS: METHYLPREDNISOLONE IV 40 MG in SYRINGE 0 ML IV SCH ×2 (05:34→21:38)
--- NOTE | 2017-02-08 06:00 | NUR ---
A: Pt resting comfortably in bed at this time without voiced complaints. Vital signs as documented. Afib on the athletic monitor. I&O as documented. Pt declines to be turned/repositioned, also declines bath. CPAP remains in place. PTT 87: as per Heparin protocol, gtt to be held for 30 minutes at restarted 200 units less than prior rate which will be 29 ml/hour. No s/s of acute distress. Call abdalla within reach. Will continue to monitor.
[2017-02-08 06:04] LABS: CALCIUM 8.3 mg/dl (8.5-10.1); CREATININE 2.69 mg/dl (0.60-1.40); POTASSIUM 4.1 mmol/L (3.5-5.1)
[2017-02-08] MEDS: HEPARIN 25,000 UNIT/500ML D5W 500 ML IV PRN ×3 (06:39→18:21)
[2017-02-08 06:53] LABS: IG# 0.02 K/uL (0.00-0.02); LYMPH % 8.8 %; LYMPH ABS # 0.48 K/uL (1.2-3.4); MONO % 5.9 %; MONO ABS # 0.32 K/uL (0.11-0.59); NEUT % 84.9 %; NEUT ABS # 4.65 K/uL (1.4-6.5)
[2017-02-08 07:57] LABS: HEMOGLOBIN A1C 5.5 % (4.5-5.6)
[2017-02-08] MEDS ORDERED: INSULIN GLARGINE SOLOSTAR 100 UNITS/ML 3 ML PEN SC ONE (08:00)
--- NOTE | 2017-02-08 08:00 | NUR ---
a: assessment completed, no changes noted from prev shift verbal report. a/o. says "breathing feels better", has tolerated cpap o/n and just now being transferred back to hiflo 50 lpm o2. afib, rate controlled. vss. adequate u/o via fc. ivf normosolR 100 cc/h. heparin gtt maintained 29 cc/h with next ptt at 1240. lantus dosing started. pt denies c/o, see emr further detail.
[2017-02-08] MEDS: NORMOSOL R 1,000 ML IV SCH ×2 (08:02→18:21)
[2017-02-08] MEDS: INSULIN ASPART 100 UNITS/ML 3 ML PEN SC SCH ×4 (08:18→21:38)
--- NOTE | 2017-02-08 08:31 | Progress Note ---
Internal Med Progress Note Date of Service: Feb 08, 2017. Provider Documentation: SUBJECTIVE: Seen and examined at bedside Persistent Left hip pain especially with movement Also states having mild LLQ abdominal pain Less cough, SOB Denies chest pain, dizziness No other complaints OBJECTIVE: Vital Signs-as noted below Physical Exam: General Appearance:Obese, no apparent distress Head: normocephalic, Atraumatic Eyes: normal inspection, EOMI, PERRL Neck: supple, Trachea midline Respiratory/Chest: Decreased breath sounds, CTA Cardiovascular: Irregularly, Irregular, No murmur Abdomen/GI:Soft, Non tender, Bowel sounds present Extremities/Musculoskelatal:normal inspection, 2+ B/L edema Neurologic/Psych:AAOX3, grossly no focal neurological deficits Skin: normal color, warm Lab data as noted below. ASSESSMENT & PLAN: Acute Respiratory failure with Hypoxia: H/O COPD, JITENDRA on CPAP CT suggestive of LLL Possible Pneumonia; RUL infectious bronchiolitis; tracheobronchomalacia Influenza A positive Venous Doppler Negative for DVT Patient was on Eliquis for afib Continue IV Ceftriaxone, Levaquin, Tamiflu IV Solumedrol, Nebs, Oxygen Support Blood/Urine cultures: No growth to date Sputum cultures:pending MRSA screen Negative Appreciate Risk Officer help PARVIZ Unknown baseline Cr Cr:3.94>>3.91>>>2.69 Continue IVF Hold HCTZ/Lisinopril for now Avoid nephrotoxic agents when possible Rhabdomyolysis: Pt spent several days sitting in his truck: CPK: 2711>>1736 Resume Pravastatin when appropriate Continue IV Fluids Monitor CPK Afib continue metoprolol hold eliquis until renal function better Continue IV heparin for now Left hip minimal avulsion fracture of greater trochanter: S/P total hip arthroplasty 7 years X RAY HIP: Lucency along the acetabular component of the total left hip arthroplasty could suggest particle disease Appreciate Orthopedics Input PT/OT HTN: continue metoprolol hold lisinopril/HCTZ monitor BP Dyslipidemia Continue statin JITENDRA CPAP QHS DVT Px: On IV heparin Code Status: DNR [facility] [employer] [facility] per pt DISPOSITION Monitor in ICU Family Contact: Son:Bernard Tamez:[phone]: Wants update from physicians PROCEDURES: CT chest: 1. Extensive right lower lobe airspace opacity with air bronchograms and mild volume loss. Mild left lower lobe airspace opacity. The findings could reflect pneumonia or atelectasis. 2. Mild tree-in-bud opacities within the right upper lobe which suggests an infectious bronchiolitis. 3. Moderate emphysema. 4. Moderate cardiomegaly and small pericardial effusion. 5. 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 Venous Doppler: No evidence of deep venous thrombus within the bilateral lower extremities. L femur X ray: No acute osseous injury of the visualized portion of the left femur. L Hip X ray: 1. Lucency along the acetabular component of the total left hip arthroplasty could suggest particle disease. 2. No acute osseous injury of the pelvis or left hip. Vital Signs: Date Time Temp Pulse Resp B/P (MAP) Pulse Ox O2 Delivery O2 Flow Rate FiO2 02/08/17 10:00 89 20 128/54 (78) 89 High Flow Oxygen 50.0 02/08/17 08:00 95 CPAP 02/08/17 08:00 90 22 128/79 (95) 95 CPAP 02/08/17 07:22 89 94 50 02/08/17 07:21 89 17 94 BiPAP/CPAP 50 02/08/17 07:00 36.8 80 20 127/82 (97) 95 CPAP 02/08/17 06:01 74 22 125/76 (104) 95 02/08/17 05:01 82 20 130/70 (74) 93 02/08/17 04:01 87 18 123/67 (81) 92 02/08/17 04:00 94 CPAP 02/08/17 04:00 36.7 02/08/17 03:01 89 17 159/82 (105) 94 02/08/17 02:24 88 94 50 02/08/17 02:23 88 17 94 BiPAP/CPAP 50 02/08/17 02:15 83 23 162/98 (114) 94 02/08/17 02:01 85 21 170/99 (105) 94 02/08/17 01:01 84 19 150/81 (96) 93 02/08/17 00:01 94 22 155/87 (96) 91 02/07/17 23:59 91 CPAP 02/07/17 23:20 90 91 50 02/07/17 23:01 82 23 135/93 (100) 88 02/07/17 22:01 95 19 139/77 (85) 89 02/07/17 21:01 96 20 114/84 (87) 89 02/07/17 20:01 84 24 142/89 (112) 92 02/07/17 20:00 92 High Flow Oxygen 50.0 02/07/17 20:00 36.7 02/07/17 19:30 83 20 90 Nasal Cannula 50.0 75 02/07/17 19:01 92 22 128/69 (97) 88 02/07/17 18:00 89 143/82 (102) 90 02/07/17 16:00 36.9 86 24 119/62 (81) 89 High Flow Oxygen 50.0 85 02/07/17 16:00 High Flow Oxygen 02/07/17 14:07 88 18 89 Nasal Cannula 50.0 85 02/07/17 14:00 93 22 134/88 (103) 94 High Flow Oxygen 50.0 85 02/07/17 12:00 36.8 92 22 129/84 (99) 92 High Flow Oxygen 50.0 85 02/07/17 12:00 High Flow Oxygen Lab Results: Results Past 24 Hours Test 02/07/17 12:30 02/07/17 18:26 02/07/17 22:33 02/08/17 04:56 Range/Units Bedside Glucose 162 137 193 70-99 mg/dl White Blood Count 5.47 4.8-10.8 K/uL Red Blood Count 3.49 4.7-6.1 M/uL Hemoglobin 11.1 14.0-18.0 g/dL Hematocrit 32.8 42-52 % Mean Corpuscular Volume 94.0 80-100 fL Mean Corpuscular Hemoglobin 31.8 25-34 pg Mean Corpuscular Hemoglobin Concent 33.8 32-36 g/dl Platelet Count 126 130-400 K/uL Mean Platelet Volume 11.3 7.4-10.4 fL Neutrophils (%) (Auto) 84.9 % Lymphocytes (%) (Auto) 8.8 % Monocytes (%) (Auto) 5.9 % Eosinophils (%) (Auto) 0.0 % Basophils (%) (Auto) 0.0 % Neutrophils # (Auto) 4.65 1.4-6.5 K/uL Lymphocytes # (Auto) 0.48 1.2-3.4 K/uL Monocytes # (Auto) 0.32 0.11-0.59 K/uL Eosinophils # (Auto) 0.00 0-0.5 K/uL Basophils # (Auto) 0.00 0-0.2 K/uL RDW Standard Deviation 49.0 36.4-46.3 fL RDW Coefficient of Variation 14.2 11.5-14.5 % Immature Granulocyte % (Auto) 0.4 % Immature Granulocyte # (Auto) 0.02 0.00-0.02 K/uL Echinocytes 1+ Activated Partial Thromboplast Time 87.0 21.0-31.0 SECONDS Partial Thromboplastin Ratio 3.3 Sodium Level 139 136-145 mmol/L Potassium Level 4.1 3.5-5.1 mmol/L Chloride Level 109 98-107 mmol/L Carbon Dioxide Level 24 21-32 mmol/L Anion Gap 6.0 3-11 mmol/L Blood Urea Nitrogen 86 7-18 mg/dl Creatinine 2.69 0.60-1.40 mg/dl Est Creatinine Clear Calc Drug Dose 29.7 ml/min Estimated GFR () 25.0 Estimated GFR (Non- 21.5 BUN/Creatinine Ratio 31.9 10-20 Random Glucose 168 70-99 mg/dl Estimated Average Glucose 111 mg/dl Hemoglobin A1c 5.5 4.5-5.6 % Calcium Level 8.3 8.5-10.1 mg/dl Phosphorus Level 4.0 2.5-4.9 mg/dl Magnesium Level 2.3 1.8-2.4 mg/dl Total Creatine Kinase 1736 39-308 U/L Test 02/08/17 06:21 Range/Units Bedside Glucose 174 70-99 mg/dl
--- NOTE | 2017-02-08 08:59 | NUR ---
spo2 on hiflo o2 hi 80s. had been mid 90s on cpap Addendum: 02/08/17 at 0900 by Jessie Matson RN percussion module placed, pt verbalized understanding of rationale
[2017-02-08] MEDS: ALFUZosin TAB 10 MG TAB PO SCH (09:14)
[2017-02-08] MEDS: FLUTICASONE FUROATE-VILANTEROL 200/25 MCG INH INH SCH (09:15)
[2017-02-08] MEDS: METOPROLOL SUCC 25MG EXT REL TAB PO SCH (09:15)
[2017-02-08] MEDS: OSELTAMIVIR PHOSPHATE SUSP 30 MG/5 ML UDP PO SCH ×2 (09:18→21:38)
--- NOTE | 2017-02-08 09:37 | DIAGNOSTIC IMAGING REPORT ---
CHEST ONE VIEW PORTABLE HISTORY: Hypoxia COMPARISON: Chest 02/06/2017. FINDINGS: No pneumothorax. Mild enlargement of the cardiac silhouette, unchanged. Bibasilar linear densities are again noted. There is mild central pulmonary vascular congestion without overt edema. No new focal lung consolidations. IMPRESSION: 1. Patchy bibasilar densities. This could represent atelectasis or pneumonia. 2. Stable mild cardiomegaly. Electronically signed by: Raj Cardenas M.D. 02/08/2017 9:35 AM Dictated Date/Time: 02/08/2017 9:34 AM
--- NOTE | 2017-02-08 10:14 | Orthopedic Progress Note ---
Orthopedic Progress Note Date of Service Feb 08, 2017. Subjective Additional Notes: Pt lying in bed sleeping. Easily awoken but goes back to sleep easily. States that his hip pain is better today. No new complaints. Objective calves soft nontender, N/V intact, hip located Date Time Temp Pulse Resp B/P (MAP) Pulse Ox O2 Delivery O2 Flow Rate FiO2 02/08/17 08:00 95 CPAP 02/08/17 08:00 90 22 128/79 (95) 95 CPAP 02/08/17 07:22 89 94 50 02/08/17 07:21 89 17 94 BiPAP/CPAP 50 02/08/17 07:00 36.8 80 20 127/82 (97) 95 CPAP 02/08/17 06:01 74 22 125/76 (104) 95 02/08/17 05:01 82 20 130/70 (74) 93 02/08/17 04:01 87 18 123/67 (81) 92 02/08/17 04:00 94 CPAP 02/08/17 04:00 36.7 02/08/17 03:01 89 17 159/82 (105) 94 02/08/17 02:24 88 94 50 02/08/17 02:23 88 17 94 BiPAP/CPAP 50 02/08/17 02:15 83 23 162/98 (114) 94 02/08/17 02:01 85 21 170/99 (105) 94 02/08/17 01:01 84 19 150/81 (96) 93 02/08/17 00:01 94 22 155/87 (96) 91 02/07/17 23:59 91 CPAP 02/07/17 23:20 90 91 50 02/07/17 23:01 82 23 135/93 (100) 88 02/07/17 22:01 95 19 139/77 (85) 89 02/07/17 21:01 96 20 114/84 (87) 89 02/07/17 20:01 84 24 142/89 (112) 92 02/07/17 20:00 92 High Flow Oxygen 50.0 02/07/17 20:00 36.7 02/07/17 19:30 83 20 90 Nasal Cannula 50.0 75 02/07/17 19:01 92 22 128/69 (97) 88 02/07/17 18:00 89 143/82 (102) 90 02/07/17 16:00 36.9 86 24 119/62 (81) 89 High Flow Oxygen 50.0 85 02/07/17 16:00 High Flow Oxygen 02/07/17 14:07 88 18 89 Nasal Cannula 50.0 85 02/07/17 14:00 93 22 134/88 (103) 94 High Flow Oxygen 50.0 85 02/07/17 12:00 36.8 92 22 129/84 (99) 92 High Flow Oxygen 50.0 85 02/07/17 12:00 High Flow Oxygen Laboratory Results 24 Hours: Test 02/08/17 04:56 White Blood Count 5.47 K/uL Red Blood Count 3.49 M/uL Hemoglobin 11.1 g/dL Hematocrit 32.8 % Mean Corpuscular Volume 94.0 fL Mean Corpuscular Hemoglobin 31.8 pg Mean Corpuscular Hemoglobin Concent 33.8 g/dl Platelet Count 126 K/uL Mean Platelet Volume 11.3 fL Neutrophils (%) (Auto) 84.9 % Lymphocytes (%) (Auto) 8.8 % Monocytes (%) (Auto) 5.9 % Eosinophils (%) (Auto) 0.0 % Basophils (%) (Auto) 0.0 % Neutrophils # (Auto) 4.65 K/uL Lymphocytes # (Auto) 0.48 K/uL Monocytes # (Auto) 0.32 K/uL Eosinophils # (Auto) 0.00 K/uL Basophils # (Auto) 0.00 K/uL Assessment & Plan Assessment: Left Hip Pain with question of Greater Trochanter Fx Plan: Xrays reviewed by Dr Michelle and also by Dr Abdalla. No overt injury to stem or surrounding bone. ? of avulsion fx of the Greater Trochanter No surgery needed. Would start patient on PT/OT WBAT. Oral pain meds should suffice. Ortho will sign off for now. Please call with any questions or if patients symptoms worsen with increased activity.
--- NOTE | 2017-02-08 10:15 | NUR ---
WBAT status relayed by Kroner. spo2 hi 80s on hi paul O2. vss.
--- NOTE | 2017-02-08 11:48 | Pharmacy Progress Note ---
Glycemic Control Progress Note Date of Service Feb 08, 2017. Scope Glycemic Pharmacist consulted for glycemic control to write orders per [facility] inpatient glycemic control protocol. Objective Accuchecks BSG (last 24hrs): Test 02/07/17 12:30 02/07/17 18:26 02/07/17 22:33 02/08/17 04:56 Bedside Glucose 162 mg/dl (70-99) 137 mg/dl (70-99) 193 mg/dl (70-99) Random Glucose 168 mg/dl (70-99) Test 02/08/17 06:21 Bedside Glucose 174 mg/dl (70-99) HbA1c: Test 02/08/17 04:56 Hemoglobin A1c 5.5 % (4.5-5.6) Recent Pertinent Medications Outpatient Anti-diabetic Regimen: * None * A1c 5.5% on 02/08/17 Risk Factors for Insulin Resistance: * Steroids: Methylprednisolone 40 mg IV q8h --> TAPERED to 40 mg IV BID * Infection: Influenza A, also with possible PNA * IVF: Heparin gtt, Normosol @ 10 mL/hr * Diet: NPO changed to AHA yesterday Assessment & Plan ASSESSMENT: 02/07/17 * 81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 HbA1c ordered for tomorrow. * Highest BSG thus far is 169 mg/dL however patient is on steroids therefore may trend up. Despite this, increases may not be too significant as patient is currently NPO and steroids affect post-prandial BSG's the most * Will order weight based Novolog for now * Will consider add on Lantus if patient becomes hyperglycemic 02/08/17 * HbA1c resulted today - within normal limits. Patient not on diabetes medications as outpatient. Therefore, this patient does not have baseline diabetes and elevations in BSG's this admission likely due to significant stressors (steroids, acute illness, etc) * BSG's ranging 137-193 mg/dL over the last 24 hours * Some BSG's above goal on current Novolog only regimen. * Will therefore add-on Lantus. * Will be conservative with initial dose as patient only was adminsitered 3 units of insulin yesterday total (albeit he was NPO at the time) * Steroids tapered today therefore OK to continue Novolog as-is despite some moderate hyperglycemia as insulin sensitivity expected in increase PLAN FOR INPATIENT GLYCEMIC CONTROL: * Add Basal insulin with LANTUS 10 units SQ x1 now then SC BID based on BSG * 0 units for BSG less than 120 mg/dL * 10 units for BSG 120-180 mg/dL * 15 units for BSG greater than 180 mg/dL * Correctional Insulin with NOVOLOG per scale Q6hrs while NPO * Goal Range: Low 120 mg/dL - High 160 mg/dL * Correction Factor: 20 mg/dL/unit * Nutritional / Prandial insulin per carb ratio of 1 unit per 7 grams CHO consumed * Please note that the plan above was derived based on current level of insulin resistance and hospital stress. These recommendations are appropriate for inpatient admission only. Plan of care upon discharge will need to be reassessed to avoid potential outpatient hypo/hyperglycemia. Thank you.
[2017-02-08] MEDS: PRAVASTATIN SOD 40 MG TAB PO SCH (12:00)
--- NOTE | 2017-02-08 12:00 | NUR ---
a: reassessed as charted. c/o Pilar smith "gas pain"md made aware. no other changes. napping off and on thru morning. spo2 hi 80-lo90s on hiflo O2. afib, rate controlled 80-90s. adequate u/o via fc. no bm. denies other c/o. Addendum: 02/08/17 at 1214 by Jessie Matson RN chg bath earlier, mild sob with side lying and effort with quick recovery at rest.
[2017-02-08] MEDS ORDERED: SIMETHICONE 80 MG CHEW PO PRN (13:00)
[2017-02-08 13:14] LABS: PTT PATIENT 73.9 SECONDS (21.0-31.0)
--- NOTE | 2017-02-08 14:00 | NUR ---
a: napping. refused lunch, tray removed. see i/o. heparin gtt now at 27 cc/h after 12:40 ptt came back 73.9
--- NOTE | 2017-02-08 14:43 | NUR ---
case management note. received a call from pts son Bernard who states he would like to be involved with D/C plans and is willing to help in any way needed. He states pts is unreliable and will not be able to assist pt as she has her own medical problems.pts son is Bernard Tamez and his contact number is [phone]. Bernard also states if unable to reach him at that contact number he can be reached by calling his , Tatyana, at [phone]. Bernard states he spoke with physician who stated pt might need rehab at D/C and he is asking if it is possible to get pt closer to his home in [place] for rehab. made him aware that pt may need rehab in this area for some time before being able to travel the length of time needed to get to his home town in [place]. also pt is currently on high flow O2 and may have oxygen requirements at D/C. pt does not have oxygen at home. ortho consult indicates possible avulsion fracture of greater trochanter not requiring surgery. no surgery is indicated and pt can begin PT/OT with [facility]. spoke with pt at bedside who states he would like his son added as account contact associate and he gives permission to discuss D/C needs with his son. call to admissions to have pts son added to contact list. pt is currently remains acutely ill in ICU and D/C needs are still uncertain. case management to follow.
[2017-02-08] MEDS ORDERED: LEVOFLOXACIN 750MG / D5W IV SCH (16:00)
[2017-02-08] MEDS ORDERED: LEVOFLOXACIN 500MG / D5W IV SCH (16:00)
--- NOTE | 2017-02-08 16:00 | NUR ---
a: awake after an hour nap. oriented. lungs dim with lite ex wh. upper airway congestion cleared with cough. remains on hiflo O2 with spo2 88-93% at rest. afib, rate controlled. sbp 90s when relaxed/sleeping. no bm today. skipped lunch all together, says "not really hungry". abdl discomfort "gas pain" has resolved. adequate u/o via fc. says comfortable. see emr further detail.
--- NOTE | 2017-02-08 17:00 | NUR ---
insulin gtt off per pharmacy. last bsg in 150s, covered TF only.
--- NOTE | 2017-02-08 17:40 | NUR ---
a: covered 1600 bsg with insulin. no po intake as yet for supper, tray remains in front of pt as he says he "might eat something".
--- NOTE | 2017-02-08 18:00 | NUR ---
a: awake, pt talked to on the phone. still no po intake for supper.
--- NOTE | 2017-02-08 20:00 | NUR ---
A: Assessment completed. Vital signs as documented. Afib on the cardiac/vascular sonographer, rate 90-110's. Pt awake alert and oriented voicing no complaints. Pt resting comfortably in bed watching television and napping. Hi-flow oxygen therapy in use at 70% 15L. Heparin gtt at 27 ml/hour (PTT = 69.0, no change as per protocol), Normosol R at 100 ml/hour. Lung sounds diminished with faint expiratory wheezes, shortness of breath upon exertion. Alaniz catheter intact, patent draining concentrated yellow urine. No s/s of acute distress. Call abdalla within reach. Will continue to monitor closely. See EMR nursing assessment documentation for further details.
--- NOTE | 2017-02-08 20:23 | NUR ---
RC: Pt HFNC decreased from 70%/50L to 60%/50L. Pt's O2 sat remaining between 88 and 91%.
[2017-02-08] MEDS ORDERED: INSULIN GLARGINE SOLOSTAR 100 UNITS/ML 3 ML PEN SC SCH (21:00)
[2017-02-08] MEDS ORDERED: INSULIN ASPART 100 UNITS/ML 3 ML PEN SC SCH (22:00)
--- NOTE | 2017-02-08 22:00 | NUR ---
A: Pt resting comfortably in bed at this time without voiced complaints. Pt drinking decaf coffee and watching television. Pt able to speak in full sentences without shortness of breath. Hi flow oxygen therapy remains in place, FiO2 now 60%. Oxygen saturations high 80%'s-mid 90%'s. Afib on the pullman car repairer rate in the 100's. Vital signs as documented. I&O as documented. Pt refusing to turn/reposition, also refusing PM care. Pt states he is comfortable at this time. Call abdalla within reach. Will continue to monitor.
[2017-02-08] MEDS: CEFTRIAXONE SOD INJ 1 GM in DEXTROSE 5% ADD-VANTAGE 50ML 50 ML IV SCH (22:28)
--- NOTE | 2017-02-08 23:15 | NUR ---
A: CPAP in place 16/50% FiO2. Vital signs as documented. Afib with PVCs on the box office attendant rate, 90-110's. Pt resting comfortably in bed without voiced complaints. Oxygen saturations low 90%'s. Heparin 27 ml/hour, Normosol R 100 ml/hour. No s/s of acute distress. Call abdalla within reach. Will continue to monitor.
--- NOTE | 2017-02-08 23:58 | Critical Care Progress Note ---
Critical Care Progress Note Date of Service Feb 08, 2017. ICU Day ICU Day Number: [address] Maddox Subjective Feeling improved, less short of breath Objective General: Alert and oriented 3 Pulmonary: Prolonged I:E ratio scattered wheeze Current SOFA Score SOFA Score Response (Comments) Value SaO2 / FIO2 67 - 141 3 Platelets (x10) < 150 1 Bilirubin (mg/dL) < 1.2 0 [place] Coma Score 15 0 Level of Hypotension No Hypotension 0 Creatinine (mg/dL) 3.5 - 4.9 3 Total 7 Assessment & Plan (1) COPD (chronic obstructive pulmonary disease) (2) Renal failure (3) Acute respiratory failure (4) Rhabdomyolysis (5) Hypoxia (6) Left hip pain (7) COPD exacerbation (8) Afib (9) HTN (hypertension) (10) Dyslipidemia (11) JITENDRA (obstructive sleep apnea) Reason Critically Ill: 81-year-old male with acute on chronic hypoxic respiratory failure with acute kidney injury PLAN: Neuro: Pain controlled, weightbearing as tolerated Resp: Severe COPD with greater than [id number] smoking history Acute on chronic hypoxic respiratory failure * Tolerating high flow nasal cannula attempt to decrease slowly * Decreased IV steroids Influenza A pneumonia medications adjusted for improved renal function Community-acquired pneumonia as secondary bacterial infection in setting of influenza A * Sputum culture pending * Rocephin and Levaquin CV: Atrial fibrillation * Chronic anticoagulation secondary to atrial fibrillation Fluids/Renal: Acute kidney injury * Likely prerenal in origin * Continue to monitor I's and O's, change normal saline to normosolt 100 ML's per hour ID: Continue Tamiflu continue Rocephin, continue Levaquin GI/Nutrition: Regular diet Mild left lower quadrant pain: Simethicone per patient's request Heme: Anemia thrombocytopenia Endocrine: Mild hyperglycemia, within goal range likely secondary to steroids I have personally spent 35 minutes of critical care time in the direct management of this patient. This is a life/limb threatening event. This includes time spent evaluating patient, direct bedside care, chart review, placing orders, interpretation of diagnostic studies, discussion with consultants, patient, and family members, as well as other required patient management activities. This time is exclusive of all separately billable procedures, and teaching time and separate from and in addition to any other critical care service time. Consults & Procedures Consultants: Orthopedics Procedures: NA Data Medications: Current Inpatient Medications Medications (Trade) Dose Ordered Sig/Doreen Route Start Time Stop Time Status Last Admin Dose Admin Acetaminophen (Tylenol Tab) 650 mg Q4H PRN PO 02/06/17 18:00 03/08/17 17:59 02/07/17 22:08 650 MG Nitroglycerin (Nitrostat Tab) 0.4 mg UD PRN SL 02/06/17 18:00 03/08/17 17:59 Morphine Sulfate (MoRPHine SULFATE INJ) 2 mg Q2H PRN IV 02/06/17 18:00 02/20/17 17:59 02/07/17 22:52 2 MG Alfuzosin HCl (Uroxatral Tab) 10 mg DAILY PO 02/07/17 09:00 03/09/17 08:59 02/08/17 09:14 10 MG Metoprolol Succinate (Toprol Xl Tab) 25 mg DAILY PO 02/07/17 09:00 03/09/17 08:59 02/08/17 09:15 25 MG Pravastatin Sodium (Pravachol Tab) 40 mg DAILY PO 02/07/17 09:00 03/09/17 08:59 Future hold 02/08/17 12:00 40 MG Metoprolol Tartrate (Lopressor Iv) 2.5 mg Q4 PRN IV 02/06/17 20:00 03/08/17 19:59 Levofloxacin (Consult) 1 ea UD PRN N/A 02/06/17 21:30 03/08/17 21:29 Ipratropium [place] (Atrovent 0.02% 0.5MG/2.5ML Neb) 0.5 mg Q6R INH 02/07/17 03:00 03/09/17 02:59 02/08/17 19:15 0.5 MG Levalbuterol (Xopenex 1.25MG/ 0.5ML Neb) 1.25 mg Q6R INH 02/07/17 03:00 03/09/17 02:59 02/08/17 19:15 1.25 MG Ipratropium [place] (Atrovent 0.02% 0.5MG/2.5ML Neb) 0.5 mg Q2H PRN INH 02/06/17 22:00 03/08/17 21:59 Levalbuterol (Xopenex 1.25MG/ 0.5ML Neb) 1.25 mg Q2H PRN INH 02/06/17 22:00 03/08/17 21:59 Ceftriaxone Sodium 1 gm/ Dextrose 50 ml @ 100 mls/hr DAILY@2300 IV 02/07/17 01:30 02/17/17 22:59 02/08/17 22:28 100 MLS/HR Heparin Sodium/ Dextrose 500 ml @ 27 mls/hr [id number] PRN IV 02/07/17 01:45 03/09/17 01:44 02/08/17 18:21 27 MLS/HR Miscellaneous Information (Consult Glycemic Management Pharmacy) 1 ea UD PRN N/A 02/07/17 08:39 03/09/17 08:38 Fluticasone/ Vilanterol (Breo Ellipta 200-25 Mcg/Inh) 1 inha DAILY INH 02/08/17 09:00 03/10/17 08:59 02/08/17 09:15 1 INHA Parenteral Electrolyte Solution 1,000 ml @ 100 mls/hr Q10H IV 02/07/17 22:15 03/09/17 22:14 02/08/17 18:21 100 MLS/HR Insulin Aspart (novoLOG ASPART) SLIDING SCALE ACHS SC 02/07/17 22:30 03/09/17 22:29 02/08/17 21:38 1 UNITS Levofloxacin 750 mg/Prmx 150 ml @ 100 mls/hr Q2D@1600 IV 02/08/17 16:00 02/16/17 15:59 02/08/17 15:48 100 MLS/HR Oseltamivir Phosphate (Tamiflu Susp) 30 mg BID PO 02/08/17 21:00 02/11/17 23:59 02/08/17 21:38 30 MG Methylprednisolone Sodium Succinate 40 mg/Syringe 0.64 ml @ 1.5 mls/min BID IV 02/08/17 21:00 03/08/17 21:59 02/08/17 21:38 1.5 MLS/MIN Simethicone (Mylicon Chew Tab) 80 mg Q6H PRN PO 02/08/17 13:00 03/10/17 12:59 02/08/17 13:33 80 MG Insulin Glargine (Lantus Solostar Pen) BID SC 02/08/17 21:00 03/10/17 20:59 02/08/17 21:37 10 UNITS I & O: 24-Hour Column 02/09/17 07:59 Intake Total 2808 ml Output Total 1500 ml Balance 1308 ml Vital Signs: Date Time Temp Pulse Resp B/P (MAP) Pulse Ox O2 Delivery O2 Flow Rate FiO2 02/08/17 22:01 91 23 95/48 (86) 94 02/08/17 20:01 97 24 85/51 (66) 89 02/08/17 20:00 94 High Flow Oxygen 50.0 70 02/08/17 20:00 36.3 02/08/17 19:20 98 20 94 Nasal Cannula 50.0 70 02/08/17 18:00 92 18 94/62 (73) 94 High Flow Oxygen 50.0 02/08/17 16:00 36.9 101 18 93/57 (69) 89 High Flow Oxygen 50.0 02/08/17 16:00 89 High Flow Oxygen 50.0 02/08/17 14:41 105 21 94 Nasal Cannula 50.0 70 02/08/17 14:00 101 22 124/77 (93) 94 High Flow Oxygen 50.0 02/08/17 12:00 36.4 96 22 98/59 (72) 92 High Flow Oxygen 50.0 02/08/17 12:00 92 High Flow Oxygen 50.0 02/08/17 10:00 89 20 128/54 (78) 89 High Flow Oxygen 50.0 02/08/17 08:00 95 CPAP 02/08/17 08:00 High Flow Oxygen 02/08/17 08:00 90 22 128/79 (95) 95 CPAP 02/08/17 07:22 89 94 50 02/08/17 07:21 89 17 94 BiPAP/CPAP 50 02/08/17 07:00 36.8 80 20 127/82 (97) 95 CPAP 02/08/17 06:01 74 22 125/76 (104) 95 02/08/17 05:01 82 20 130/70 (74) 93 02/08/17 04:01 87 18 123/67 (81) 92 02/08/17 04:00 94 CPAP 02/08/17 04:00 36.7 02/08/17 03:01 89 17 159/82 (105) 94 02/08/17 02:24 88 94 50 02/08/17 02:23 88 17 94 BiPAP/CPAP 50 02/08/17 02:15 83 23 162/98 (114) 94 02/08/17 02:01 85 21 170/99 (105) 94 02/08/17 01:01 84 19 150/81 (96) 93 02/08/17 00:01 94 22 155/87 (96) 91 02/07/17 23:59 91 CPAP Laboratory Results: Last 24 Hours Test 02/08/17 04:56 02/08/17 06:21 02/08/17 11:16 02/08/17 12:37 White Blood Count 5.47 K/uL Red Blood Count 3.49 M/uL Hemoglobin 11.1 g/dL Hematocrit 32.8 % Mean Corpuscular Volume 94.0 fL Mean Corpuscular Hemoglobin 31.8 pg Mean Corpuscular Hemoglobin Concent 33.8 g/dl Platelet Count 126 K/uL Mean Platelet Volume 11.3 fL Neutrophils (%) (Auto) 84.9 % Lymphocytes (%) (Auto) 8.8 % Monocytes (%) (Auto) 5.9 % Eosinophils (%) (Auto) 0.0 % Basophils (%) (Auto) 0.0 % Neutrophils # (Auto) 4.65 K/uL Lymphocytes # (Auto) 0.48 K/uL Monocytes # (Auto) 0.32 K/uL Eosinophils # (Auto) 0.00 K/uL Basophils # (Auto) 0.00 K/uL RDW Standard Deviation 49.0 fL RDW Coefficient of Variation 14.2 % Immature Granulocyte % (Auto) 0.4 % Immature Granulocyte # (Auto) 0.02 K/uL Echinocytes 1+ Activated Partial Thromboplast Time 87.0 SECONDS 73.9 SECONDS Partial Thromboplastin Ratio 3.3 2.8 Sodium Level 139 mmol/L Potassium Level 4.1 mmol/L Chloride Level 109 mmol/L Carbon Dioxide Level 24 mmol/L Anion Gap 6.0 mmol/L Blood Urea Nitrogen 86 mg/dl Creatinine 2.69 mg/dl Est Creatinine Clear Calc Drug Dose 29.7 ml/min Estimated GFR () 25.0 Estimated GFR (Non- 21.5 BUN/Creatinine Ratio 31.9 Random Glucose 168 mg/dl Estimated Average Glucose 111 mg/dl Hemoglobin A1c 5.5 % Calcium Level 8.3 mg/dl Phosphorus Level 4.0 mg/dl Magnesium Level 2.3 mg/dl Total Creatine Kinase 1736 U/L Bedside Glucose 174 mg/dl 193 mg/dl Test 02/08/17 16:12 02/08/17 19:17 02/08/17 20:24 Bedside Glucose 194 mg/dl 174 mg/dl Activated Partial Thromboplast Time 69.0 SECONDS Partial Thromboplastin Ratio 2.7 Problem Qualifiers (1) Renal failure: Renal failure chronicity: acute Acute renal failure type: unspecified Qualified Codes: N17.9 - Acute kidney failure, unspecified (2) Rhabdomyolysis: Rhabdomyolysis type: non-traumatic Qualified Codes: M62.82 - Rhabdomyolysis (3) Afib: Atrial fibrillation type: chronic Qualified Codes: I48.2 - Chronic atrial fibrillation
--- NOTE | 2017-02-08 23:59 | NUR ---
A: Assessment completed. Vital signs as documented. Afib with PVCs on the bilingual inside sales representative, rate 100's. Heparin 27 ml/hour, Normosol R 100 ml/hour. Pt turned and repositioned, refuses PM care. Comfort wipes to back and kalie-area, lotion applied to back, incontinent pad changed. CPAP remains in place. Lung sounds clear diminished throughout. Pt resting comfortably in bed without voiced complaints. No s/s of acute distress. Call abdalla within reach. See EMR nursing assessment documentation for further details. Will continue to monitor.
[2017-02-09] VITALS (58 sets, daily range): BP systolic 67–143; BP diastolic 35–81; PULSE 84–137; TEMP 36.3–36.7; O2SAT 87–98
[2017-02-09] MEDS: MoRPHine SULFATE 2 MG/ML CARP IV PRN ×2 (01:17→22:19)
--- NOTE | 2017-02-09 01:30 | NUR ---
A: Pt c/o hip pain, medicated with IV PRN Morphine. As per pt request, pt put back on hi flow oxygen therapy. Will continue to monitor.
[2017-02-09] MEDS: LEVALBUTEROL 1.25MG/0.5ML NEB INH SCH ×4 (01:50→19:43)
[2017-02-09] MEDS: IPRATROPIUM BROMIDE NEB SOLN 0.02% 2.5 ML VIAL INH SCH ×4 (01:50→19:43)
--- NOTE | 2017-02-09 02:20 | NUR ---
A: Pt resting quietly in bed at this time with eyes closed, respirations regular even unlabored. Vital signs as documented. Afib with PVCs on the district sales representative rate 100-110's. No s/s of acute distress. Call abdalla within reach. Will continue to monitor.
--- NOTE | 2017-02-09 04:00 | NUR ---
A: Assessment completed. Vital signs as documented. Afib with PVCs on the threat monitoring analyst, rate 100-110's. Heparin 27 ml/hour, Normosol R 100 ml/hour. Pt resting quietly in bed at this time with eyes closed, awakens easily to verbal stimuli voicing no complaints. Pt denies pain. Lung sounds clear diminished throughout. Hi flow oxygen therapy in place, 60% FiO2. No s/s of acute distress. Call abdalla within reach. See EMR nursing assessment documentation for further details. Will continue to monitor.
[2017-02-09] MEDS: NORMOSOL R 1,000 ML IV SCH (04:03)
--- NOTE | 2017-02-09 04:30 | NUR ---
A: Versed gtt turned of for CPAP trial this morning. Addendum: 02/09/17 at 0555 by Filomena Brennan RN Disregard: entered on wrong pt.
--- NOTE | 2017-02-09 05:00 | NUR ---
A: Pt now on CPAP mode 10/10 40% FiO2
--- NOTE | 2017-02-09 06:00 | NUR ---
A: Pt resting comfortably in bed at this time without voiced complaints. AM care provided, CHG bath completed, skin/philip care completed. Gown/linens changed. Hi flow remains in place at 60% FiO2. Vital signs as documented. Afib with PVCs on the manager harbor 100-110's. No s/s of acute distress. Call abdalla within reach. Will continue to monitor.
[2017-02-09 06:13] LABS: PTT PATIENT 72.5 SECONDS (21.0-31.0)
[2017-02-09 06:24] LABS: CALCIUM 7.9 mg/dl (8.5-10.1); CREATININE 2.42 mg/dl (0.60-1.40); POTASSIUM 4.5 mmol/L (3.5-5.1)
[2017-02-09 06:27] LABS: PHOSPHORUS 4.3 mg/dl (2.5-4.9)
--- NOTE | 2017-02-09 06:27 | NUR ---
A: PTT = 72.5. As per protocol decrease infusion by 100 units/hour (rate will now be 25 ml/hour) next PTT in 6 hours.
[2017-02-09] MEDS ORDERED: INSULIN IV INFUSION PROTOCOL STA (06:32)
[2017-02-09] MEDS ORDERED: INSULIN PROTOCOL GOAL RANGE ONE (06:45)
[2017-02-09] MEDS ORDERED: SEVERE STRESS LEVEL ONE (06:45)
[2017-02-09] MEDS ORDERED: DC ALL PREVIOUSLY ORDERED DIABETES MEDS ONE (06:45)
[2017-02-09 06:55] LABS: HEMATOCRIT 21.4 % (42-52); HEMOGLOBIN 7.2 g/dL (14.0-18.0); MEAN CELL VOLUME 93.9 fL (80-100); MEAN CORPUSCULAR HEMOGLOBIN 31.6 pg (25-34); MEAN CORPUSCULAR HGB CONC 33.6 g/dl (32-36); MEAN PLATELET VOLUME 11.3 fL (7.4-10.4); PLATELET COUNT 163 K/uL (130-400); RED CELL DISTRIBUTION WIDTH CV 14.1 % (11.5-14.5); RED CELL DISTRIBUTION WIDTH SD 49.1 fL (36.4-46.3); WHITE BLOOD COUNT 11.03 K/uL (4.8-10.8)
[2017-02-09 06:56] LABS: BASO % 0.1 %; BASO ABS # 0.01 K/uL (0-0.2); LYMPH ABS # 0.77 K/uL (1.2-3.4); MONO % 7.1 %; MONO ABS # 0.78 K/uL (0.11-0.59); NEUT % 84.9 %; NEUT ABS # 9.37 K/uL (1.4-6.5)
[2017-02-09 06:58] LABS: HEMATOCRIT 20.6 % (42-52); HEMOGLOBIN 6.9 g/dL (14.0-18.0); MEAN CELL VOLUME 93.6 fL (80-100); MEAN CORPUSCULAR HEMOGLOBIN 31.4 pg (25-34); MEAN CORPUSCULAR HGB CONC 33.5 g/dl (32-36); PLATELET COUNT 156 K/uL (130-400); RED CELL DISTRIBUTION WIDTH CV 14.2 % (11.5-14.5); RED CELL DISTRIBUTION WIDTH SD 48.7 fL (36.4-46.3); WHITE BLOOD COUNT 11.09 K/uL (4.8-10.8)
[2017-02-09] MEDS ORDERED: INSULIN HUMAN REGULAR IV BOLUS 4.5 UNIT in SYRINGE 0 ML IV SCH (07:00)
--- NOTE | 2017-02-09 07:13 | NUR ---
A: Yisel Toth PA-C made aware of repeat H&H
[2017-02-09] MEDS: INSULIN REGULAR 250 UNITS in SODIUM CHLORIDE 0.9% 250ML 250 ML IV SCH (07:15)
[2017-02-09] MEDS ORDERED: INSULIN GLARGINE SOLOSTAR 100 UNITS/ML 3 ML PEN SC ONE (07:15)
[2017-02-09 07:19] LABS: BASO % 0.1 %; BASO ABS # 0.01 K/uL (0-0.2); IG# 0.09 K/uL (0.00-0.02); LYMPH % 7.5 %; LYMPH ABS # 0.83 K/uL (1.2-3.4); MONO % 6.5 %; MONO ABS # 0.72 K/uL (0.11-0.59); NEUT % 85.1 %; NEUT ABS # 9.44 K/uL (1.4-6.5)
[2017-02-09] MEDS: INSULIN ASPART 100 UNITS/ML 3 ML PEN SC SCH ×4 (08:00→20:30)
--- NOTE | 2017-02-09 08:00 | NUR ---
a: assessment completed, see emr. sbp 88. afib, rate 100-120s. afebrible. has been on hiflo o2 since about 0130 per report, spo2 lo to mid 90s at rest. pt drowsy. insulin gtt started earlier, explanation of closer monitoring given to pt.
[2017-02-09] MEDS ORDERED: DOPamine 400MG / 250ML D5W ONE (08:11)
--- NOTE | 2017-02-09 08:15 | NUR ---
sbp dropping, dessert cup machine feeder made aware. Addendum: 02/09/17 at 1133 by Jessie Matson RN dopamine started at 10 mcg/kg/m
--- NOTE | 2017-02-09 08:26 | NUR ---
sbp 140s, hr 150s, dopamine running initially at 10 mcg/kg/m, turned down to 7 mcg and then off in response to HR and improved pressures.
[2017-02-09] MEDS ORDERED: DOPAMINE 400MG / D5W IV PRN (08:30)
--- NOTE | 2017-02-09 08:30 | NUR ---
1 unit emergency release blood transfusion initiated via new RIJ central access
[2017-02-09] MEDS ORDERED: ONDANSETRON INJ 2 MG/ML 2 ML VIAL ONE (08:32)
[2017-02-09 08:43] LABS: HEMATOCRIT 18.8 % (42-52); HEMOGLOBIN 6.2 g/dL (14.0-18.0); RETIC COUNT % 0.8 % (0.5-2.0)
[2017-02-09] MEDS ORDERED: ONDANSETRON INJ 2 MG/ML 2 ML VIAL IV PRN (08:45)
--- NOTE | 2017-02-09 08:50 | NUR ---
sbp 60s, dopamine restarted at 5 mcg/kg/m
[2017-02-09] MEDS: ALFUZosin TAB 10 MG TAB PO SCH (09:00)
[2017-02-09] MEDS: OSELTAMIVIR PHOSPHATE SUSP 30 MG/5 ML UDP PO SCH ×2 (09:00→20:30)
[2017-02-09] MEDS: METHYLPREDNISOLONE IV 40 MG in SYRINGE 0 ML IV SCH ×2 (09:13→20:30)
[2017-02-09] MEDS: FLUTICASONE FUROATE-VILANTEROL 200/25 MCG INH INH SCH (09:13)
[2017-02-09] MEDS: PHENYLEPHRINE HCL INJ 20 MG in DEXTROSE 5% 500ML 500 ML IV PRN ×4 (09:29→22:36)
--- NOTE | 2017-02-09 09:30 | NUR ---
a: dopamine discont'd. neosynephrine started at 2 mcg/kg/m.
--- NOTE | 2017-02-09 09:42 | DIAGNOSTIC IMAGING REPORT ---
CHEST ONE VIEW PORTABLE CLINICAL HISTORY: Central venous access. Respiratory failure. COMPARISON STUDY: Chest CT February 06, 2017 and chest radiograph February 08, 2017. FINDINGS: Cardiomegaly is again noted. There is pulmonary vascular congestion without overt pulmonary edema. Tip of right internal jugular introducer projects over the confluence of the right subclavian and internal jugular veins. No pneumothorax is identified. Bibasilar opacities persist. IMPRESSION: 1. Tip of right internal jugular introducer projects over the confluence of the right internal jugular and subclavian veins. No pneumothorax. 2. Persistent bibasilar opacities which could reflect atelectasis or consolidation. Electronically signed by: Juanito Gonzalez M.D. 02/09/2017 9:41 AM Dictated Date/Time: 02/09/2017 9:38 AM
--- NOTE | 2017-02-09 09:44 | Progress Note ---
Internal Med Progress Note Date of Service: Feb 09, 2017. Provider Documentation: SUBJECTIVE: Seen and examined at bedside States Left hip pain better Denies abdominal pain today Blood pressure and Hemoglobin dropped overnight Got central line placed this morning Currently receiving blood transfusion and is started on pressors Less cough, SOB Denies chest pain OBJECTIVE: Vital Signs-as noted below Physical Exam: General Appearance:Obese, no apparent distress Head: normocephalic, Atraumatic Eyes: normal inspection, EOMI, PERRL Neck: supple, Trachea midline Respiratory/Chest: Decreased breath sounds, CTA Cardiovascular: Tachycardia, Irregularly, Irregular, No murmur Abdomen/GI:Soft, Non tender, Bowel sounds present Extremities/Musculoskelatal:normal inspection, 2+ B/L edema Neurologic/Psych:AAOX3, grossly no focal neurological deficits Skin: normal color, warm Lab data as noted below. ASSESSMENT & PLAN: Acute Respiratory failure with Hypoxia: H/O COPD, JITENDRA on CPAP CT suggestive of LLL Possible Pneumonia; RUL infectious bronchiolitis; tracheobronchomalacia Influenza A positive Venous Doppler Negative for DVT Patient was on Eliquis for afib Continue IV Ceftriaxone, Levaquin, Tamiflu IV Solumedrol, Nebs, Oxygen Support Blood/Urine cultures: No growth to date Sputum cultures:Heavy normal sukhdeep MRSA screen Negative Appreciate [place] help Hypotension Possible acute blood loss anemia: Needs CT scan when more stable to localize bleeding site if any Transfuse PRBCs Monitor Hb Pressor support per ICU team Hb:6.2 today Heparin ggt discontinued PARVIZ Unknown baseline Cr Cr:3.94>>3.91>>>2.69>>>2.42 Continue IVF Hold HCTZ/Lisinopril for now Avoid nephrotoxic agents when possible Rhabdomyolysis: Pt spent several days sitting in his truck: CPK: [id number] Continue IV Fluids Afib continue metoprolol Held eliquis until renal function better and Hemoglobin stable IV heparin discontinued as work up for anemia pending Left hip minimal avulsion fracture of greater trochanter: 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 Extensive right lower lobe airspace opacity with air bronchograms and mild volume loss. Mild left lower lobe airspace opacity. The findings could reflect pneumonia or atelectasis. 2. Mild tree-in-bud opacities within the right upper lobe which suggests an infectious bronchiolitis. 3. Moderate emphysema. 4. Moderate cardiomegaly and small pericardial effusion. 5. 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 Venous Doppler: No evidence of deep venous thrombus within the bilateral lower extremities. L femur X ray: No acute osseous injury of the visualized portion of the left femur. L Hip X ray: 1. Lucency along the acetabular component of the total left hip arthroplasty could suggest particle disease. 2. No acute osseous injury of the pelvis or left hip. Vital Signs: Date Time Temp Pulse Resp B/P (MAP) Pulse Ox O2 Delivery O2 Flow Rate FiO2 02/09/17 08:57 36.6 118 20 102/44 90 50.0 02/09/17 08:45 103 20 90/35 87 50.0 02/09/17 08:30 36.7 02/09/17 08:30 133 94/55 88 02/09/17 07:29 110 22 95 Nasal Cannula 50.0 60 02/09/17 06:01 107 20 83/51 (61) 94 02/09/17 05:40 106 18 81/50 (55) 94 02/09/17 04:01 103 20 88/45 (61) 95 02/09/17 04:00 36.3 02/09/17 04:00 92 Nasal Cannula 50.0 60 02/09/17 03:01 95 22 89/52 (61) 93 02/09/17 02:28 92 18 97/47 (50) 91 02/09/17 02:01 108 20 73/46 (56) 92 02/09/17 01:50 104 20 92 Nasal Cannula 50.0 60 02/09/17 00:10 89 22 89/55 (64) 95 02/09/17 00:01 36.3 02/08/17 23:59 94 BiPAP 50 02/08/17 22:01 91 23 95/48 (86) 94 02/08/17 20:01 97 24 85/51 (66) 89 02/08/17 20:00 94 High Flow Oxygen 50.0 70 02/08/17 20:00 36.3 02/08/17 19:20 98 20 94 Nasal Cannula 50.0 70 02/08/17 18:00 92 18 94/62 (73) 94 High Flow Oxygen 50.0 02/08/17 16:00 36.9 101 18 93/57 (69) 89 High Flow Oxygen 50.0 02/08/17 16:00 89 High Flow Oxygen 50.0 02/08/17 14:41 105 21 94 Nasal Cannula 50.0 70 02/08/17 14:00 101 22 124/77 (93) 94 High Flow Oxygen 50.0 02/08/17 12:00 36.4 96 22 98/59 (72) 92 High Flow Oxygen 50.0 02/08/17 12:00 92 High Flow Oxygen 50.0 02/08/17 10:00 89 20 128/54 (78) 89 High Flow Oxygen 50.0 Lab Results: Results Past 24 Hours Test 02/08/17 11:16 02/08/17 12:37 02/08/17 16:12 02/08/17 19:17 Range/Units Bedside Glucose 193 194 70-99 mg/dl Activated Partial Thromboplast Time 73.9 69.0 21.0-31.0 SECONDS Partial Thromboplastin Ratio 2.8 2.7 Test 02/08/17 20:24 02/09/17 05:20 02/09/17 06:12 02/09/17 06:29 Range/Units Bedside Glucose 174 221 70-99 mg/dl White Blood Count 11.03 11.09 4.8-10.8 K/uL Red Blood Count 2.28 2.20 4.7-6.1 M/uL Hemoglobin 7.2 6.9 14.0-18.0 g/dL Hematocrit 21.4 20.6 42-52 % Mean Corpuscular Volume 93.9 93.6 80-100 fL Mean Corpuscular Hemoglobin 31.6 31.4 25-34 pg Mean Corpuscular Hemoglobin Concent 33.6 33.5 32-36 g/dl Platelet Count 163 156 130-400 K/uL Mean Platelet Volume 11.3 11.0 7.4-10.4 fL Neutrophils (%) (Auto) 84.9 85.1 % Lymphocytes (%) (Auto) 7.0 7.5 % Monocytes (%) (Auto) 7.1 6.5 % Eosinophils (%) (Auto) 0.0 0.0 % Basophils (%) (Auto) 0.1 0.1 % Neutrophils # (Auto) 9.37 9.44 1.4-6.5 K/uL Lymphocytes # (Auto) 0.77 0.83 1.2-3.4 K/uL Monocytes # (Auto) 0.78 0.72 0.11-0.59 K/uL Eosinophils # (Auto) 0.00 0.00 0-0.5 K/uL Basophils # (Auto) 0.01 0.01 0-0.2 K/uL RDW Standard Deviation 49.1 48.7 36.4-46.3 fL RDW Coefficient of Variation 14.1 14.2 11.5-14.5 % Immature Granulocyte % (Auto) 0.9 0.8 % Immature Granulocyte # (Auto) 0.10 0.09 0.00-0.02 K/uL Ovalocytes 1+ Activated Partial Thromboplast Time 72.5 21.0-31.0 SECONDS Partial Thromboplastin Ratio 2.8 Sodium Level 139 136-145 mmol/L Potassium Level 4.5 3.5-5.1 mmol/L Chloride Level 107 98-107 mmol/L Carbon Dioxide Level 25 21-32 mmol/L Anion Gap 7.0 3-11 mmol/L Blood Urea Nitrogen 92 7-18 mg/dl Creatinine 2.42 0.60-1.40 mg/dl Est Creatinine Clear Calc Drug Dose 33.3 ml/min Estimated GFR () 28.4 Estimated GFR (Non- 24.5 BUN/Creatinine Ratio 37.8 10-20 Random Glucose 198 70-99 mg/dl Calcium Level 7.9 8.5-10.1 mg/dl Phosphorus Level 4.3 2.5-4.9 mg/dl Magnesium Level 2.2 1.8-2.4 mg/dl Total Creatine Kinase 567 39-308 U/L Red Blood Cell Morphology Unremarkable Test 02/09/17 07:52 02/09/17 08:40 Range/Units Hemoglobin 6.2 14.0-18.0 g/dL Hematocrit 18.8 42-52 % Absolute Reticulocyte Count 0.02 0.02-0.10 10^6/uL Percent Reticulocyte Count 0.8 0.5-2.0 % Stool Occult Blood NEGATIVE NEGATIVE
--- NOTE | 2017-02-09 10:07 | NUR ---
a: 2nd unit prbcs up, utiliziing blood warmer. vitals stabilizing with ginny at 2 mcg/kg/m, sbp 110s, hr 100s.
--- NOTE | 2017-02-09 10:40 | Procedure Note ---
Procedure Note Procedure Date Feb 09, 2017. Central Line Procedure time out: side/site verified, patient ID confirmed, sterile procedure used Consent obtained: emergent consent implied Time of procedure: 08:30 Performed by: attending Indications: poor venous access, central drug admin. Contraindications: coagulopathy (patient's on heparin infusion) Prep: chlorhexadine prep, sterile drape, sterile procedures used Anesthesia: lidocaine 1% without epi Volume anesthetic (ml's): 1 Central line lumen: single Central line location: internal jugular (R) Additional details: ultrasound guidance, Selinger technique used, line sutured CXR: appropriate position, no pneumothorax Complications: none Patient tolerated procedure: well Post-procedure vital signs: reviewed and stable Comments: Patient acutely dropped blood pressure associated with drop in H&H. Emergently placed, patient had altered mental status and was diaphoretic. Sterile drape and sterile gloves utilized with hat and mask. Dynamic ultrasound guidance employed. Position confirmed with US and transduced pressure.
--- NOTE | 2017-02-09 10:45 | NUR ---
sbp 120, HR 90s. titrating neosyn down, was at 1.6 mcg/kg/m for last bp, turned down to 1.4 mcg. prbc unit nearing completion.
--- NOTE | 2017-02-09 10:54 | Procedure Note ---
Procedure Note Date of Service Feb 09, 2017. Procedure Note Critical Care Medicine Point of Care Bedside Ultrasound Procedure: Fast Ultrasound Indication: Hypotension with acute anemia Date: 02/09/2017 Attending: Moustapha Maddox DO Organs Examined: Heart, Lung, Liver, Kidney, Spleen, Genitourinary system Pericardial Fluid: Trace Hepatorenal fluid: Absent Splenorenal fluid: Absent Rectovesical fluid: Absent Additional Findings: IVC demonstrated minimal respiratory variation Impression: No evidence of free intra-abdominal peritoneal fluid, no major sonographic evidence to suggest retroperitoneal hematoma Plan: Continue to monitor serial H&H's, continue blood transfusion Images obtained are saved for permanent record Critical Care Medicine Point of Care Bedside Ultrasound Procedure: Limited Transthoracic Echocardiogram Indication: Acute hypotension Date: 02/09/2017 Attending: Moustapha Maddox DO Vital signs during examination: Heart rate 120, blood pressure 100/44, pulse oximetry 90, respiratory rate 16, FiO2 50 L/m, on 5 mcg/kg dopamine Organs Examined: Heart, Vascular system Pericardial fluid: Trace Right ventricle size: Normal LV Contractility: hyperdynamic RV Contractility: Hyperdynamic Minimal respiratory variation Spontaneous breaths: Present Intravascular volume status: Euvolemic Impression: Trace pericardial effusion, hyperdynamic appearance of left ventricle. Plan: Continue with blood transfusion, doubt the trace pericardial effusion is hemodynamically significant, no evidence to suggests atrial collapse, possible influenza related cardiomyopathy Images obtained are saved for permanent record
--- NOTE | 2017-02-09 11:12 | Critical Care Progress Note ---
Critical Care Progress Note Date of Service Feb 09, 2017. ICU Day ICU Day Number: [address] Maddox Subjective Not feeling well, nauseous, short of breath Objective General: Alert and oriented 3 Pulmonary: Prolonged I:E ratio scattered wheeze Current SOFA Score SOFA Score Response (Comments) Value SaO2 / FIO2 67 - 141 3 Platelets (x10) < 150 1 Bilirubin (mg/dL) < 1.2 0 [place] Coma Score 15 0 Level of Hypotension MAP less than 70 1 Creatinine (mg/dL) 2.0 - 3.4 2 Total 7 Assessment & Plan (1) COPD (chronic obstructive pulmonary disease) (2) Renal failure (3) Acute respiratory failure (4) Rhabdomyolysis (5) Hypoxia (6) Left hip pain (7) COPD exacerbation (8) Afib (9) HTN (hypertension) (10) Dyslipidemia (11) JITENDRA (obstructive sleep apnea) PLAN: Neuro: Altered mental status during hypotensive episode, this is improved Resp: Severe COPD with greater than [id number] smoking history Acute on chronic hypoxic respiratory failure * Tolerating high flow nasal cannula attempt to decrease slowly, currently at 50 L/m down from 75 * Hold current dose of steroids Influenza A pneumonia medications adjusted for improved renal function Community-acquired pneumonia as secondary bacterial infection in setting of influenza A * Sputum culture heavy growth of normal sukhdeep * Rocephin and Levaquin will continue given risk factors for a total of 10 days of treatment CV: Atrial fibrillation * Chronic anticoagulation secondary to atrial fibrillation * This is been held given acute drop in hemoglobin and hematocrit Fluids/Renal: Acute kidney injury * Creatinine decreased to 2.4 to from 2.69 * Urine output has decreased since hypotensive episode * Nephrology consult as anticipate this episode of hypotension will worsen his renal function, the patient continues to retain fluid and may need volume control in the near future ID: Continue Tamiflu continue Rocephin, continue Levaquin GI/Nutrition: Nothing by mouth Mild left lower quadrant pain: Resolved Heme: Acute drop in H&H * Patient's blood pressure decreased to 60 systolic, emergency release of blood was undertaken. Patient had been previously consented to blood and was awaiting crossmatch blood. * Patient's reticulocyte count is on the low end of normal, I would anticipate this evening secondary to influenza and bone marrow suppression * Check PT, PTT, fibrinogen, highly doubt DIC, stool guaiac negative at present time * D/W Dr. Blackman could run peripheral smear on AM specimen prior to blood administration * Homolysis and HUS in differential. Will give 2 units FFP Endocrine: Mild hyperglycemia, I'll set a goal range will require adjustment of insulin I have personally spent 50 minutes of critical care time in the direct management of this patient. This is a life/limb threatening event. This includes time spent evaluating patient, direct bedside care, chart review, placing orders, interpretation of diagnostic studies, discussion with consultants, patient, and family members, as well as other required patient management activities. This time is exclusive of all separately billable procedures, and teaching time and separate from and in addition to any other critical care service time. Consults & Procedures Consultants: Orthopedics Procedures: NA Data Medications: Current Inpatient Medications Medications (Trade) Dose Ordered Sig/Doreen Route Start Time Stop Time Status Last Admin Dose Admin Acetaminophen (Tylenol Tab) 650 mg Q4H PRN PO 02/06/17 18:00 03/08/17 17:59 02/07/17 22:08 650 MG Nitroglycerin (Nitrostat Tab) 0.4 mg UD PRN SL 02/06/17 18:00 03/08/17 17:59 Morphine Sulfate (MoRPHine SULFATE INJ) 2 mg Q2H PRN IV 02/06/17 18:00 02/20/17 17:59 02/09/17 01:17 2 MG Alfuzosin HCl (Uroxatral Tab) 10 mg DAILY PO 02/07/17 09:00 03/09/17 08:59 02/08/17 09:14 10 MG Metoprolol Succinate (Toprol Xl Tab) 25 mg DAILY PO 02/07/17 09:00 03/09/17 08:59 Future Hold 02/08/17 09:15 25 MG Pravastatin Sodium (Pravachol Tab) 40 mg DAILY PO 02/07/17 09:00 03/09/17 08:59 Future hold 02/08/17 12:00 40 MG Metoprolol Tartrate (Lopressor Iv) 2.5 mg Q4 PRN IV 02/06/17 20:00 03/08/17 19:59 Levofloxacin (Consult) 1 ea UD PRN N/A 02/06/17 21:30 03/08/17 21:29 Ipratropium [place] (Atrovent 0.02% 0.5MG/2.5ML Neb) 0.5 mg Q6R INH 02/07/17 03:00 03/09/17 02:59 02/09/17 07:28 0.5 MG Levalbuterol (Xopenex 1.25MG/ 0.5ML Neb) 1.25 mg Q6R INH 02/07/17 03:00 03/09/17 02:59 02/09/17 07:28 1.25 MG Ipratropium [place] (Atrovent 0.02% 0.5MG/2.5ML Neb) 0.5 mg Q2H PRN INH 02/06/17 22:00 03/08/17 21:59 Levalbuterol (Xopenex 1.25MG/ 0.5ML Neb) 1.25 mg Q2H PRN INH 02/06/17 22:00 03/08/17 21:59 Ceftriaxone Sodium 1 gm/ Dextrose 50 ml @ 100 mls/hr DAILY@2300 IV 02/07/17 01:30 02/17/17 22:59 02/08/17 22:28 100 MLS/HR Miscellaneous Information (Consult Glycemic Management Pharmacy) 1 ea UD PRN N/A 02/07/17 08:39 03/09/17 08:38 Fluticasone/ Vilanterol (Breo Ellipta 200-25 Mcg/Inh) 1 inha DAILY INH 02/08/17 09:00 03/10/17 08:59 02/09/17 09:13 1 INHA Parenteral Electrolyte Solution 1,000 ml @ 100 mls/hr Q10H IV 02/07/17 22:15 03/09/17 22:14 02/09/17 04:03 100 MLS/HR Levofloxacin 750 mg/Prmx 150 ml @ 100 mls/hr Q2D@1600 IV 02/08/17 16:00 02/16/17 15:59 02/08/17 15:48 100 MLS/HR Oseltamivir Phosphate (Tamiflu Susp) 30 mg BID PO 02/08/17 21:00 02/11/17 23:59 02/08/17 21:38 30 MG Methylprednisolone Sodium Succinate 40 mg/Syringe 0.64 ml @ 1.5 mls/min BID IV 02/08/17 21:00 03/08/17 21:59 02/09/17 09:13 1.5 MLS/MIN Simethicone (Mylicon Chew Tab) 80 mg Q6H PRN PO 02/08/17 13:00 03/10/17 12:59 02/08/17 13:33 80 MG Insulin Aspart (novoLOG ASPART) SLIDING SCALE PCHS SC 02/09/17 08:00 03/11/17 07:59 Insulin Human Regular 250 units/ Sodium Chloride 252.5 ml @ 0 mls/hr Q24H IV 02/09/17 07:00 03/11/17 06:59 02/09/17 07:15 4.5 MLS/HR Ondansetron HCl (Zofran Inj) 4 mg Q6H PRN IV 02/09/17 08:45 03/11/17 08:44 02/09/17 08:35 4 MG Phenylephrine HCl 20 mg/Dextrose 502 ml @ 0 mls/hr Q0M PRN IV 02/09/17 09:30 03/11/17 09:29 02/09/17 10:06 363 MLS/HR I & O: 24-Hour Column 02/10/17 08:00 Intake Total 310 ml Balance 310 ml Vital Signs: Date Time Temp Pulse Resp B/P (MAP) Pulse Ox O2 Delivery O2 Flow Rate FiO2 02/09/17 10:15 36.6 100 16 120/63 90 50.0 02/09/17 10:04 36.7 101 18 110/67 95 50.0 02/09/17 09:30 36.7 119 22 90/58 87 50.0 02/09/17 08:57 36.6 118 20 102/44 90 50.0 02/09/17 08:45 103 20 90/35 87 50.0 02/09/17 08:30 36.7 02/09/17 08:30 133 94/55 88 02/09/17 07:29 110 22 95 Nasal Cannula 50.0 60 02/09/17 06:01 107 20 83/51 (61) 94 02/09/17 05:40 106 18 81/50 (55) 94 02/09/17 04:01 103 20 88/45 (61) 95 02/09/17 04:00 36.3 02/09/17 04:00 92 Nasal Cannula 50.0 60 02/09/17 03:01 95 22 89/52 (61) 93 02/09/17 02:28 92 18 97/47 (50) 91 02/09/17 02:01 108 20 73/46 (56) 92 02/09/17 01:50 104 20 92 Nasal Cannula 50.0 60 02/09/17 00:10 89 22 89/55 (64) 95 02/09/17 00:01 36.3 02/08/17 23:59 94 BiPAP 50 02/08/17 22:01 91 23 95/48 (86) 94 02/08/17 20:01 97 24 85/51 (66) 89 02/08/17 20:00 94 High Flow Oxygen 50.0 70 02/08/17 20:00 36.3 02/08/17 19:20 98 20 94 Nasal Cannula 50.0 70 02/08/17 18:00 92 18 94/62 (73) 94 High Flow Oxygen 50.0 02/08/17 16:00 36.9 101 18 93/57 (69) 89 High Flow Oxygen 50.0 02/08/17 16:00 89 High Flow Oxygen 50.0 02/08/17 14:41 105 21 94 Nasal Cannula 50.0 70 02/08/17 14:00 101 22 124/77 (93) 94 High Flow Oxygen 50.0 02/08/17 12:00 36.4 96 22 98/59 (72) 92 High Flow Oxygen 50.0 02/08/17 12:00 92 High Flow Oxygen 50.0 Laboratory Results: Last 24 Hours Test 02/08/17 11:16 02/08/17 12:37 02/08/17 16:12 02/08/17 19:17 Bedside Glucose 193 mg/dl 194 mg/dl Activated Partial Thromboplast Time 73.9 SECONDS 69.0 SECONDS Partial Thromboplastin Ratio 2.8 2.7 Test 02/08/17 20:24 02/09/17 05:20 02/09/17 06:12 02/09/17 06:29 Bedside Glucose 174 mg/dl 221 mg/dl White Blood Count 11.03 K/uL 11.09 K/uL Red Blood Count 2.28 M/uL 2.20 M/uL Hemoglobin 7.2 g/dL 6.9 g/dL Hematocrit 21.4 % 20.6 % Mean Corpuscular Volume 93.9 fL 93.6 fL Mean Corpuscular Hemoglobin 31.6 pg 31.4 pg Mean Corpuscular Hemoglobin Concent 33.6 g/dl 33.5 g/dl Platelet Count 163 K/uL 156 K/uL Mean Platelet Volume 11.3 fL 11.0 fL Neutrophils (%) (Auto) 84.9 % 85.1 % Lymphocytes (%) (Auto) 7.0 % 7.5 % Monocytes (%) (Auto) 7.1 % 6.5 % Eosinophils (%) (Auto) 0.0 % 0.0 % Basophils (%) (Auto) 0.1 % 0.1 % Neutrophils # (Auto) 9.37 K/uL 9.44 K/uL Lymphocytes # (Auto) 0.77 K/uL 0.83 K/uL Monocytes # (Auto) 0.78 K/uL 0.72 K/uL Eosinophils # (Auto) 0.00 K/uL 0.00 K/uL Basophils # (Auto) 0.01 K/uL 0.01 K/uL RDW Standard Deviation 49.1 fL 48.7 fL RDW Coefficient of Variation 14.1 % 14.2 % Immature Granulocyte % (Auto) 0.9 % 0.8 % Immature Granulocyte # (Auto) 0.10 K/uL 0.09 K/uL Ovalocytes 1+ Activated Partial Thromboplast Time 72.5 SECONDS Partial Thromboplastin Ratio 2.8 Sodium Level 139 mmol/L Potassium Level 4.5 mmol/L Chloride Level 107 mmol/L Carbon Dioxide Level 25 mmol/L Anion Gap 7.0 mmol/L Blood Urea Nitrogen 92 mg/dl Creatinine 2.42 mg/dl Est Creatinine Clear Calc Drug Dose 33.3 ml/min Estimated GFR () 28.4 Estimated GFR (Non- 24.5 BUN/Creatinine Ratio 37.8 Random Glucose 198 mg/dl Calcium Level 7.9 mg/dl Phosphorus Level 4.3 mg/dl Magnesium Level 2.2 mg/dl Total Creatine Kinase 567 U/L Red Blood Cell Morphology Unremarkable Test 02/09/17 07:52 02/09/17 08:40 Hemoglobin 6.2 g/dL Hematocrit 18.8 % Absolute Reticulocyte Count 0.02 10^6/uL Percent Reticulocyte Count 0.8 % Stool Occult Blood NEGATIVE Problem Qualifiers (1) Renal failure: Renal failure chronicity: acute Acute renal failure type: unspecified Qualified Codes: N17.9 - Acute kidney failure, unspecified (2) Rhabdomyolysis: Rhabdomyolysis type: non-traumatic Qualified Codes: M62.82 - Rhabdomyolysis (3) Afib: Atrial fibrillation type: chronic Qualified Codes: I48.2 - Chronic atrial fibrillation
--- NOTE | 2017-02-09 11:46 | NUR ---
normosol discontinued.
--- NOTE | 2017-02-09 12:00 | NUR ---
a: reassessed as charted. pt is resting comfortably. 2nd unit prbcs just finishing. phenylephrine is at 1 mcg/kg/m with sbp >100. afib, rate 80-100. spo2 mid 90s while at rest on hiflo O2. u/o last hour 35 cc after marginal output thru morning. insulin gtt titrated to hourly bsgs. heparin gtt maintained. pt npo, no po coverage indicated. pt says he is comfortable. will transfuse FFP when available. see emr further detail.
[2017-02-09 12:12] LABS: INR 1.1 (0.9-1.1); PTT PATIENT 26.4 SECONDS (21.0-31.0)
[2017-02-09] MEDS: PRAVASTATIN SOD 40 MG TAB PO SCH (12:21)
--- NOTE | 2017-02-09 14:00 | NUR ---
a: 2nd pack ffp running.neosynephrine is down to 0.6 mcg/kg/m.
--- NOTE | 2017-02-09 14:07 | NUR ---
correction note: fio2 80% since about 829, not 50%
--- NOTE | 2017-02-09 15:00 | NUR ---
2nd pack ffp complete. neosyn gtt is at 0.2 mcg/kg/m with sbp 113
--- NOTE | 2017-02-09 15:09 | Pharmacy Progress Note ---
Glycemic Control Progress Note Date of Service Feb 09, 2017. Scope Glycemic Pharmacist consulted for glycemic control to write orders per [facility] inpatient glycemic control protocol. Objective Accuchecks BSG (last 24hrs): Test 02/08/17 16:12 02/08/17 20:24 02/09/17 05:20 02/09/17 06:12 Bedside Glucose 194 mg/dl (70-99) 174 mg/dl (70-99) 221 mg/dl (70-99) Random Glucose 198 mg/dl (70-99) HbA1c: Test 02/08/17 04:56 Hemoglobin A1c 5.5 % (4.5-5.6) Recent Pertinent Medications Outpatient Anti-diabetic Regimen: * None * A1c 5.5% on 02/08/17 Risk Factors for Insulin Resistance: * Steroids: Methylprednisolone 40 mg IV q8h --> TAPERED to 40 mg IV BID * Infection: Influenza A, also with possible PNA * IVF: Heparin gtt, Normosol @ 10 mL/hr * Diet: NPO changed to [facility] yesterday Outpatient Anti-Diabetic Meds None Assessment & Plan ASSESSMENT: 02/08/17 * HbA1c resulted today - within normal limits. Patient not on diabetes medications as outpatient. Therefore, this patient does not have baseline diabetes and elevations in BSG's this admission likely due to significant stressors (steroids, acute illness, etc) * BSG's ranging 137-193 mg/dL over the last 24 hours * Some BSG's above goal on current Novolog only regimen. * Will therefore add-on Lantus. * Will be conservative with initial dose as patient only was adminsitered 3 units of insulin yesterday total (albeit he was NPO at the time) * Steroids tapered today therefore OK to continue Novolog as-is despite some moderate hyperglycemia as insulin sensitivity expected in increase 02/09/17 * Increased Lantus 20 units x1 this AM for BSG > 220 mg/dL * Significnat increase in physiologic stress * Hypotention with SBP in 60's requiring pressors * Hgb dropped significantly: 11.1 to 6.2 over 24 hours. Requiring blood transfusion. * BSG's have risen 2nd increased stress - insulin gtt initiated, currently running at 5.4 units/hr PLAN FOR INPATIENT GLYCEMIC CONTROL: * Insulin drip per severe stress protocol * Goal range 100-180 mg/dL * Please note that the plan above was derived based on current level of insulin resistance and hospital stress. These recommendations are appropriate for inpatient admission only. Plan of care upon discharge will need to be reassessed to avoid potential outpatient hypo/hyperglycemia. Thank you.
[2017-02-09 15:14] LABS: HEMATOCRIT 22.5 % (42-52); HEMOGLOBIN 7.7 g/dL (14.0-18.0)
--- NOTE | 2017-02-09 16:00 | NUR ---
a: reassessed as charted. neosynephrine is down to 0.2 mcg/kg/m with adequate pressures. dilute yellow u/o approx 35-40 cc/h last 2h. lite sonorous ex wh, spo2 lo/mid 90s on hiflo. denies pain. [employer] noted somewhat firm lump L abdm, pt said a little tender to palpation. planning for CT scan abdm. last Hgb>7 after 2units prbcs.
--- NOTE | 2017-02-09 16:34 | NUR ---
attempt made by RT to place pt on bipap for trip to CT scan abdm. unable to maintain spo2 on drager with 10lpm portable o2. neurological physiotherapist made aware, will reassess need for ct scan after next h/h.
--- NOTE | 2017-02-09 16:40 | NUR ---
RESP NOTE: ATTEMPTED TO TAKE PATIENT TO CT SCAN ON BIPAP, PT SPO2 84% AFTER APPROX 4 MINUTES ON CPAP WITH PORTABLE OXYGEN HOOKUP. PT PLACED ON HIFLOW, AND OXYMASK WAS ATTEMPTED. PT SPO2 STAYED ABOVE 90% APPROX. 5-10 MINUTES, BUT DESAT TO 86%. ATTEMPTED TO PLACE PATIENT BACK ON HIFLOW, SPO2 WOULD NOW RISE ABOVE 88% DESPITE HIGHER FIO2. PT PLACED ON CPAP 16 CMH20 (PREVIOUS SETTINGS) WITH AN FIO2 OF 80%. PT 92% AT THIS TIME. WILL CONTINUE TO MONITOR.
--- NOTE | 2017-02-09 18:00 | NUR ---
a: napping on cpap, now at 70% fio2 with spo2 mid 90s. appears comfortable. see flow sheet for insulin gtt titration, pharmacist made aware of freq holds this afternoon for bsgs around 100.
--- NOTE | 2017-02-09 20:00 | NUR ---
A: Assessment completed. Vital signs as documented. Efrain-synephrine for blood pressure support, infusing at 0.1 mcg/kg/min. Afib on the monitor and storage bin tender, rate 90-100's. Pt resting in bed at this time with eyes closed, awakens easily to verbal stimuli. Pt pleasant cooperative and oriented, drowsy. Pt voices no complaints. Respirations regular even unlabored, dyspnea upon exertion. Oxygen saturations mid 90%'s with CPAP 70% FiO2. Oxygen saturations do decrease quickly when off of Bipap for a brief period of time. Lung sounds diminished throughout, no cough noted. Abdomen soft nontender nondistended, except for left side is firm. Bowel sounds active in all four quadrants, no BM thus far this shift. Alaniz catheter intact patent draining concentrated urine. Right IJ introducer cath intact. Insulin as per protocol, NSS KVO (via peripheral sites). See EMR nursing assessment documentation for further details. Call abdalla within reach. Will continue to monitor.
[2017-02-09 21:30] LABS: HEMATOCRIT 22.4 % (42-52); HEMOGLOBIN 7.8 g/dL (14.0-18.0)
[2017-02-09 21:50] LABS: CALCIUM 8.4 mg/dl (8.5-10.1); CREATININE 2.45 mg/dl (0.60-1.40); POTASSIUM 4.5 mmol/L (3.5-5.1)
--- NOTE | 2017-02-09 22:00 | NUR ---
A: PM care provided. CHG bath completed, oral/skin/philip/kalie care provided. Gown and linens changed. Shortness of breath noted upon exertion. CPAP remains in place. I&O as documented. Vital signs as documented. Efrain-synephrine for blood pressure support, now at 0.05 mcg/kg/min. Afib with PVCs on the media monitor, rate 90-110's. Insulin gtt as per protocol. Call abdalla within reach. Will continue to monitor.
[2017-02-09] MEDS: CEFTRIAXONE SOD INJ 1 GM in DEXTROSE 5% ADD-VANTAGE 50ML 50 ML IV SCH (22:19)
--- NOTE | 2017-02-09 23:30 | NUR ---
A: Recent call received from Dr. Joseph in regards to pt clinical condition, vital signs, medications, urine output, plan of care. No orders received. As per Dr. Joseph if any concerns should arise throughout the night to contact him. Yisel Toth PA-C made aware of discussion with Dr. Joseph. Also, made aware of pt's firm abdomen, recent lab results, vital signs, ginny-synephrine dosage. No further orders obtained.
--- NOTE | 2017-02-09 23:59 | NUR ---
A: Assessment completed. Vital signs as documented. Efrain-synephrine for blood pressure support, now at 0.025 mcg/kg/min. Afib with PVCs on the court recording monitor, rate 90-110's. CPAP remains in place, now at 60% FiO2. Respirations regular even unlabored. Pt resting quietly in bed at this time with eyes closed, awakens easily to verbal stimuli. Pt voices no complaints, denies pain (recent IV PRN Morphine effective). Lung sounds diminished throughout. Oxygen saturations low 90%'s. Abdomen firm in all quadrants, bowel sounds active. Alaniz catheter intact, patent. Insulin gtt as per protocol. No s/s of acute distress at this time. Call abdalla within reach. Will continue to monitor.
[2017-02-10] VITALS (36 sets, daily range): BP systolic 99–130; BP diastolic 59–87; PULSE 101–122; TEMP 36.3–36.6; O2SAT 88–96
--- NOTE | 2017-02-10 02:00 | NUR ---
A: Pt awake alert and oriented voicing no complaints. Oral care provided. Shortness of breath noted and oxygen saturations high 80%'s when Bipap removed for short period of time (approximately 1 minute). Afib with PVCs on the web feeder, rate 100-110's. Vital signs as documented. Efrain-synephrine turned off. Insulin gtt as per protocol. Alaniz catheter intact patent. Call abdalla within reach. Will continue to monitor.
[2017-02-10] MEDS: IPRATROPIUM BROMIDE NEB SOLN 0.02% 2.5 ML VIAL INH SCH ×2 (02:04→07:05)
[2017-02-10] MEDS: LEVALBUTEROL 1.25MG/0.5ML NEB INH SCH ×2 (02:05→07:05)
[2017-02-10 03:45] LABS: CALCIUM 7.9 mg/dl (8.5-10.1); CREATININE 2.28 mg/dl (0.60-1.40); PHOSPHORUS 4.5 mg/dl (2.5-4.9); POTASSIUM 4.3 mmol/L (3.5-5.1)
[2017-02-10 03:56] LABS: HEMATOCRIT 20.7 % (42-52); MEAN CORPUSCULAR HEMOGLOBIN 30.4 pg (25-34); MEAN CORPUSCULAR HGB CONC 33.8 g/dl (32-36); MEAN PLATELET VOLUME 10.8 fL (7.4-10.4); PLATELET COUNT 150 K/uL (130-400); RED CELL DISTRIBUTION WIDTH CV 15.8 % (11.5-14.5); RED CELL DISTRIBUTION WIDTH SD 51.9 fL (36.4-46.3); WHITE BLOOD COUNT 11.56 K/uL (4.8-10.8)
--- NOTE | 2017-02-10 04:00 | NUR ---
A: Assessment completed. Vital signs as documented. Efrain-synephrine remains off. Afib with PVCs on the cardiac rn, rate 110-120's. CPAP remains in place at 60% FiO2. Respirations regular even unlabored. Pt resting quietly in bed at this time with eyes closed, awakens easily to verbal stimuli. Pt voices no complaints. Lung sounds diminished throughout. Oxygen saturations low 90%'s. Abdomen firm in all quadrants but unchanged since prior assess, bowel sounds active. Alaniz catheter intact, patent. Insulin gtt as per protocol. Yisel Toth PA-C made aware of critical H&H, trending vital signs, abdominal assessment, fluid balance. Call abdalla within reach. Will continue to monitor.
[2017-02-10 04:13] LABS: BASO % 0.2 %; BASO ABS # 0.02 K/uL (0-0.2); LYMPH % 7.1 %; LYMPH ABS # 0.82 K/uL (1.2-3.4); MONO ABS # 0.81 K/uL (0.11-0.59); NEUT ABS # 9.71 K/uL (1.4-6.5)
--- NOTE | 2017-02-10 04:32 | NUR ---
A: Dr. Maddox notified of current clinical picture, vital signs, fluid balance, H&H by Yisel Toth PA-C. Order obtained to transfuse 1 unit PRBCs. Transfusion begun, see EMR.
--- NOTE | 2017-02-10 06:00 | NUR ---
A: Blood transfusion remains in progress. Vital signs as documented. SBP 100's. Afib with PVCs on the cardiac rn (11 count vtach at approximately 0439, Yisel Toth PA-C made aware), rate 100-110's. I&O as documented. Efrain-synephrine remains off. Insulin as per protocol. Will continue to monitor.
[2017-02-10] MEDS: INSULIN REGULAR 250 UNITS in SODIUM CHLORIDE 0.9% 250ML 250 ML IV SCH (06:44)
[2017-02-10] MEDS: INSULIN ASPART 100 UNITS/ML 3 ML PEN SC SCH ×2 (08:00→12:00)
--- NOTE | 2017-02-10 08:00 | NUR ---
a: assessment completed, no changes noted from prev shift verbal report. a/o. said "slept pretty well last nite, I was tired after yesterday". did not maintain spo2 when briefly on hi-apul o2 this morning, back on cpap by RT. faint sonorous wheeze L anterior. spo2 mid 90s on cpap. afib, rate 100-110s, adequate pressures. abdm soft, nontender. u/o approx 45 cc last hour. insulin gtt maintained 1.1 unit/h with bsg checks q4h, bsgs stable in 110s to 120s. pt says he is comfortable. reviewed plan of care. see emr further detail.
--- NOTE | 2017-02-10 09:01 | NEPHROLOGY CONSULTATION ---
DATE OF CONSULTATION: 02/10/2017 ATTENDING OF RECORD: Benitez Russo MD REASON FOR CONSULTATION: PARVIZ with possible need for dialysis. HISTORY OF PRESENT ILLNESS: This is a 81-year-old male with underlying COPD as well as obstructive sleep apnea, who uses CPAP, who has underlying atrial fibrillation as well on Eliquis as an outpatient, who initially presented with hip pain and hypoxia with acute respiratory failure and diagnosis of COPD exacerbation versus community acquired pneumonia, started on steroids and antibiotics. The patient's creatinine also was elevated close to 4. The patient was in atrial fibrillation and tachycardic and had some mild elevated enzymes. The patient required a high-flow nasal cannula, continued the IV steroids and was positive for influenza A pneumonia and is on Tamiflu and was weaning down the IV steroids. Urine output though was decreasing and developed a hypotensive episode requiring pressors. The patient also had an acute drop in the patient's hemoglobin from 11.1 on the down to 6.2 on the , have been transfusing prbcs and FFP and the last hemoglobin levels improved up to 7. The patient's pressor has been able to be weaned off. The patient did urinate about 1 liter yesterday, although previously was urinating about 2 liters and so, it is trending down. Creatinine that was 3.94 on the , has improved now down to 2.28. The patient is comfortable on 60% BiPAP and tachycardic. PAST MEDICAL HISTORY: Atrial fibrillation, COPD, hyperlipidemia, hypertension, and obstructive sleep apnea. PAST SURGICAL HISTORY: Right knee surgery as well as a hip replacement. FAMILY HISTORY: Significant for diabetes. SOCIAL HISTORY: Former smoker, quit in 2008. No alcohol, no drugs. 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 CURRENT MEDICATIONS: Insulin drip, Solu-Medrol 40 mg IV b.i.d., Tamiflu 30 mg p.o. b.i.d., Levaquin 750 mg IV q. 2 days, Uroxatral 10 mg daily, Pravachol 40 mg daily, nebulizers, ceftriaxone 1 gram IV daily. REVIEW OF SYSTEMS: The patient is thirsty. No pain. The patient feels he is breathing better. Denies any chest pain. No fevers or chills. All other review of systems are negative. PHYSICAL EXAMINATION: VITAL SIGNS: Temperature 36.6, pulse 114, respiratory rate is 15, blood pressure 122/67, satting 94% on 60% FIO2 on BiPAP. GENERAL: Awake, alert, oriented x3. EYES: No scleral icterus. ENT: Moist mucous membranes. NECK: Supple. PULMONARY: Decreased at the bases. Overall, sounding better compared to yesterday. HEART: Irregularly irregular and tachycardic. ABDOMEN: Bowel sounds positive. Soft. No significant ecchymoses or bruising along the abdomen. EXTREMITIES: No significant clubbing, cyanosis or edema. No significant ecchymosis or bruising on the lower extremities. NEUROLOGICALLY: Nonfocal. DERMATOLOGIC: No rash or ulcers noted. LABORATORIES: Sodium level is 139, potassium 4.3, chloride is 107, bicarb is 28, BUN is 95, creatinine is 2.28, glucose is 116, calcium 7.9, phosphorus 4.5, mag is 2.1. White count is 11, H&H 7 and 21. Platelet count is 150. INR is 1.1. Blood gas from yesterday showed a pH of 7.34, pCO2 of 36, pO2 of 55, bicarbonate of 20. UA from the shows a specific gravity greater than 1.030, 2+ protein, 3+ blood, greater than 30 RBCs, greater than 30 WBCs. Stool negative for blood. Flu A positive. Chest x-ray from yesterday showed persistent bibasilar opacities. IMPRESSION AND PLAN: Acute kidney injury with creatinine that is improving down from 3.94-2.28. Urine output is trending down and was averaging about 2-1/2 liters on the and and then down to 1 liter. Patient was about 3 liters positive yesterday. The blood pressures stabilized with the transfusion and pressor was weaned off. Following hemoglobin levels closely, this is an unclear source of bleeding, he was transfused 3 units since yesterday of packed red blood cells as well as 2 units of FFP. I personally feel no role at this time for dialysis given the improving kidney function. We would continue to try to optimize intravascular space with continued blood products. We would try to reveal the source of the bleeding. Would recommend CT of the abdomen and pelvis, looking for any significant retroperitoneal bleeding although respectfully defer to critical care. We will follow along at this time. With stable electrolytes and the patient feeling more comfortable, we would like to hold off on considering dialysis at this time. If the patient's volume status worsens, we could always consider dialysis with low-dose pressors to help maximize fluid removal. We will follow along. Appreciate consultation. YULISSA
[2017-02-10] MEDS: FLUTICASONE FUROATE-VILANTEROL 200/25 MCG INH INH SCH (09:06)
[2017-02-10] MEDS: METHYLPREDNISOLONE IV 40 MG in SYRINGE 0 ML IV SCH (09:06)
[2017-02-10] MEDS: OSELTAMIVIR PHOSPHATE SUSP 30 MG/5 ML UDP PO SCH (09:06)
[2017-02-10] MEDS: PRAVASTATIN SOD 40 MG TAB PO SCH (09:06)
[2017-02-10] MEDS: ALFUZosin TAB 10 MG TAB PO SCH (09:06)
--- NOTE | 2017-02-10 09:13 | Progress Note ---
Internal Med Progress Note Date of Service: Feb 10, 2017. Provider Documentation: SUBJECTIVE: Seen and examined at bedside States Left hip pain resolved Off pressors Less cough, SOB Denies chest pain, abdominal pain Planned for CT scan today as able OBJECTIVE: Vital Signs-as noted below Physical Exam: General Appearance:Obese, no apparent distress Head: normocephalic, Atraumatic Eyes: normal inspection, EOMI, PERRL Neck: supple, Trachea midline Respiratory/Chest: Decreased breath sounds, CTA Cardiovascular: Tachycardia, Irregularly, Irregular, No murmur Abdomen/GI:Soft, Non tender, Bowel sounds present Extremities/Musculoskelatal:normal inspection, 2+ B/L edema Neurologic/Psych:AAOX3, grossly no focal neurological deficits Skin: normal color, warm Lab data as noted below. ASSESSMENT & PLAN: Acute Respiratory failure with Hypoxia: H/O COPD, JITENDRA on CPAP CT suggestive of LLL Possible Pneumonia; RUL infectious bronchiolitis; tracheobronchomalacia Influenza A positive Venous Doppler Negative for DVT Patient was on Eliquis for afib Continue IV Ceftriaxone, Levaquin, Tamiflu IV Solumedrol, Nebs, Oxygen Support Blood/Urine cultures: No growth to date Sputum cultures:Heavy normal sukhdeep MRSA screen Negative Appreciate Ward Attendant help Hypotension Possible acute blood loss anemia: Planned for CT scan today Transfuse PRBCs PRN Monitor Hb Currently off Pressors Hb:7.0 today Heparin ggt discontinued No obvious signs of hemolysis PARVIZ Unknown baseline Cr Cr:3.94>>3.91>>>2.28 Off IVF Hold HCTZ/Lisinopril for now Avoid nephrotoxic agents when possible Rhabdomyolysis: Pt spent several days sitting in his truck: CPK: [id number] Off IV Fluids Afib continue metoprolol Held eliquis until renal function better and Hemoglobin stable IV heparin discontinued as work up for anemia pending Left hip minimal avulsion fracture of greater trochanter: S/P total hip arthroplasty 7 years X RAY HIP: Lucency along the acetabular component of the total left hip arthroplasty could suggest particle disease Appreciate Orthopedics Input PT/OT HTN: BP better hold lisinopril/HCTZ monitor BP Dyslipidemia Continue statin JITENDRA CPAP QHS DVT Px: SCDs, discontinued IV heparin Re: anemia Code Status: DNR [facility] [employer] [facility] per pt DISPOSITION Monitor in ICU Family Contact: Son:Bernard Tamez:[phone]: Wants update from physicians PROCEDURES: CT chest: 1. Extensive right lower lobe airspace opacity with air bronchograms and mild volume loss. Mild left lower lobe airspace opacity. The findings could reflect pneumonia or atelectasis. 2. Mild tree-in-bud opacities within the right upper lobe which suggests an infectious bronchiolitis. 3. Moderate emphysema. 4. Moderate cardiomegaly and small pericardial effusion. 5. 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 Venous Doppler: No evidence of deep venous thrombus within the bilateral lower extremities. L femur X ray: No acute osseous injury of the visualized portion of the left femur. L Hip X ray: 1. Lucency along the acetabular component of the total left hip arthroplasty could suggest particle disease. 2. No acute osseous injury of the pelvis or left hip. Vital Signs: Date Time Temp Pulse Resp B/P (MAP) Pulse Ox O2 Delivery O2 Flow Rate FiO2 02/10/17 08:00 CPAP 60 02/10/17 08:00 36.5 113 20 126/68 (87) 95 CPAP 60 02/10/17 07:48 114 94 60 02/10/17 07:08 110 94 50 02/10/17 07:06 110 15 94 BiPAP/CPAP 50 02/10/17 07:00 111 20 115/77 (90) 93 CPAP 60 02/10/17 06:39 36.6 104 14 122/67 94 02/10/17 06:01 109 15 109/72 (81) 92 02/10/17 06:00 36.4 110 15 109/72 92 02/10/17 05:31 105 14 102/64 (74) 92 02/10/17 05:30 36.4 117 14 102/64 92 02/10/17 05:16 111 11 109/67 (77) 92 02/10/17 05:12 120 96 60 02/10/17 05:01 115 15 118/70 (82) 95 02/10/17 05:00 36.4 113 15 118/70 95 02/10/17 04:46 108 12 110/66 (71) 95 02/10/17 04:44 36.4 111 14 113/68 96 02/10/17 04:31 106 14 113/68 (71) 94 02/10/17 04:29 36.4 114 16 99/67 95 02/10/17 04:24 101 16 99/67 (75) 95 02/10/17 04:01 110 15 107/73 (90) 95 02/10/17 04:00 94 CPAP 60 02/10/17 04:00 36.4 02/10/17 03:31 122 17 109/66 (69) 95 02/10/17 03:01 113 16 110/59 (70) 94 02/10/17 02:31 102 15 117/64 (71) 93 02/10/17 02:06 105 94 60 02/10/17 02:05 105 14 94 BiPAP/CPAP 60 02/10/17 02:01 109 16 101/65 (71) 96 02/10/17 01:31 115 14 113/68 (73) 94 02/10/17 01:01 113 18 106/67 (80) 93 02/10/17 00:31 103 16 114/67 (78) 94 02/10/17 00:01 36.3 02/10/17 00:01 106 15 117/77 (92) 93 02/09/17 23:59 93 CPAP 60 02/09/17 23:31 109 18 110/62 (84) 93 02/09/17 23:01 97 16 105/68 (82) 94 02/09/17 22:52 104 98 70 02/09/17 22:31 113 18 102/66 (74) 97 02/09/17 22:01 104 20 100/79 (94) 95 02/09/17 21:31 103 17 105/64 (69) 96 02/09/17 21:01 104 20 106/72 (75) 97 02/09/17 20:31 105 20 114/62 (89) 97 02/09/17 20:01 102 17 103/71 (77) 96 02/09/17 20:00 95 CPAP 70 02/09/17 20:00 36.3 02/09/17 19:48 98 95 70 02/09/17 19:47 98 20 95 BiPAP/CPAP 70 02/09/17 19:46 103 20 108/62 (68) 95 02/09/17 19:31 98 22 121/63 (67) 92 02/09/17 19:16 93 18 108/74 (79) 93 02/09/17 19:01 95 20 108/64 (76) 95 02/09/17 18:00 108 20 98/71 (80) 94 CPAP 70 02/09/17 17:55 105 95 80 02/09/17 17:00 94 16 115/63 (80) 95 CPAP 80 02/09/17 16:00 Nasal Cannula 50.0 02/09/17 16:00 36.4 96 20 107/64 (78) 92 High Flow Oxygen 50.0 02/09/17 15:00 36.6 96 20 113/62 96 50.0 02/09/17 14:30 36.3 92 20 129/68 94 50.0 02/09/17 14:19 105 20 93 Nasal Cannula 50.0 80 02/09/17 14:15 36.3 85 18 117/67 94 50.0 02/09/17 14:00 36.4 84 20 120/81 93 50.0 02/09/17 13:50 36.5 87 20 120/67 94 50.0 02/09/17 13:00 36.4 95 22 113/72 94 50.0 02/09/17 12:45 36.3 95 16 125/67 94 50.0 02/09/17 12:30 36.5 100 20 107/69 94 50.0 02/09/17 12:23 36.4 95 16 107/71 94 50.0 02/09/17 12:00 Nasal Cannula 50.0 02/09/17 11:30 36.6 99 20 116/63 95 50.0 02/09/17 11:00 36.6 102 20 98/72 96 50.0 02/09/17 10:30 36.6 90 20 110/67 96 50.0 02/09/17 10:15 36.6 100 16 120/63 90 50.0 02/09/17 10:04 36.7 101 18 110/67 95 50.0 02/09/17 09:30 36.7 119 22 90/58 87 50.0 Lab Results: Results Past 24 Hours Test 02/09/17 09:17 02/09/17 10:13 02/09/17 11:11 02/09/17 11:27 Range/Units Bedside Glucose 176 206 198 70-99 mg/dl Prothrombin Time 11.5 9.0-12.0 SECONDS Prothromb Time International Ratio 1.1 0.9-1.1 Activated Partial Thromboplast Time 26.4 21.0-31.0 SECONDS Partial Thromboplastin Ratio 1.0 Fibrinogen 383 184-400 mg/dl Test 02/09/17 12:12 02/09/17 13:13 02/09/17 15:03 02/09/17 15:20 Range/Units Bedside Glucose 182 174 119 70-99 mg/dl Hemoglobin 7.7 14.0-18.0 g/dL Hematocrit 22.5 42-52 % Test 02/09/17 16:42 02/09/17 16:58 02/09/17 17:57 02/09/17 19:32 Range/Units Bedside Glucose 99 103 101 110 70-99 mg/dl Test 02/09/17 20:24 02/09/17 21:02 02/09/17 21:03 02/09/17 21:28 Range/Units Bedside Glucose 111 123 70-99 mg/dl Hemoglobin 7.8 14.0-18.0 g/dL Hematocrit 22.4 42-52 % Sodium Level 139 136-145 mmol/L Potassium Level 4.5 3.5-5.1 mmol/L Chloride Level 106 98-107 mmol/L Carbon Dioxide Level 26 21-32 mmol/L Anion Gap 7.0 3-11 mmol/L Blood Urea Nitrogen 91 7-18 mg/dl Creatinine 2.45 0.60-1.40 mg/dl Est Creatinine Clear Calc Drug Dose 32.9 ml/min Estimated GFR () 28.0 Estimated GFR (Non- 24.1 BUN/Creatinine Ratio 37.2 10-20 Random Glucose 107 70-99 mg/dl Calcium Level 8.4 8.5-10.1 mg/dl Test 02/09/17 22:20 02/10/17 00:18 02/10/17 01:56 02/10/17 03:04 Range/Units Bedside Glucose 123 117 128 70-99 mg/dl White Blood Count 11.56 4.8-10.8 K/uL Red Blood Count 2.30 4.7-6.1 M/uL Hemoglobin 7.0 14.0-18.0 g/dL Hematocrit 20.7 42-52 % Mean Corpuscular Volume 90.0 80-100 fL Mean Corpuscular Hemoglobin 30.4 25-34 pg Mean Corpuscular Hemoglobin Concent 33.8 32-36 g/dl Platelet Count 150 130-400 K/uL Mean Platelet Volume 10.8 7.4-10.4 fL Neutrophils (%) (Auto) 84.0 % Lymphocytes (%) (Auto) 7.1 % Monocytes (%) (Auto) 7.0 % Eosinophils (%) (Auto) 0.0 % Basophils (%) (Auto) 0.2 % Neutrophils # (Auto) 9.71 1.4-6.5 K/uL Lymphocytes # (Auto) 0.82 1.2-3.4 K/uL Monocytes # (Auto) 0.81 0.11-0.59 K/uL Eosinophils # (Auto) 0.00 0-0.5 K/uL Basophils # (Auto) 0.02 0-0.2 K/uL RDW Standard Deviation 51.9 36.4-46.3 fL RDW Coefficient of Variation 15.8 11.5-14.5 % Immature Granulocyte % (Auto) 1.7 % Immature Granulocyte # (Auto) 0.20 0.00-0.02 K/uL Basophilic Stippling OCCASIONAL Sodium Level 139 136-145 mmol/L Potassium Level 4.3 3.5-5.1 mmol/L Chloride Level 107 98-107 mmol/L Carbon Dioxide Level 28 21-32 mmol/L Anion Gap 4.0 3-11 mmol/L Blood Urea Nitrogen 95 7-18 mg/dl Creatinine 2.28 0.60-1.40 mg/dl Est Creatinine Clear Calc Drug Dose 35.3 ml/min Estimated GFR () 30.5 Estimated GFR (Non- 26.3 BUN/Creatinine Ratio 41.8 10-20 Random Glucose 116 70-99 mg/dl Calcium Level 7.9 8.5-10.1 mg/dl Phosphorus Level 4.5 2.5-4.9 mg/dl Magnesium Level 2.1 1.8-2.4 mg/dl Test 02/10/17 03:49 02/10/17 08:54 Range/Units Bedside Glucose 129 70-99 mg/dl
[2017-02-10 09:18] LABS: HEMATOCRIT 24.6 % (42-52); HEMOGLOBIN 8.4 g/dL (14.0-18.0)
[2017-02-10] MEDS ORDERED: FAMOTIDINE 20 MG TAB PO SCH (09:30)
--- NOTE | 2017-02-10 09:55 | NUR ---
a: has been tolerating oxymask at 15lpm with spo2 hi 80 to low 90s while awake. same lying flat while awake. with sleep drops to mid 80s. pt stable enough to travel to CT scan for abdl study. Last hgb back at 8.4, 1 unit prbcs since last draw.
--- NOTE | 2017-02-10 10:20 | NUR ---
back from ct scan, OT bedside
--- NOTE | 2017-02-10 10:23 | DIAGNOSTIC IMAGING REPORT ---
ABD/PELVIS NO IV OR ORAL CONT CLINICAL HISTORY: 81 years-old Male presenting with Acute anemia 80, acute respiratory failure, hypoxia. TECHNIQUE: Multidetector CT of the abdomen and pelvis was performed without the use of intravenous contrast. IV contrast: None. A dose lowering technique was used consistent with the principles of ALARA (as low as reasonably achievable). COMPARISON: None. CT DOSE (mGy.cm): The estimated cumulative dose is 1886.79 mGy.cm. FINDINGS: Loading Machine Adjuster topogram: Total left hip arthroplasty. Lung bases: Dependent consolidation and volume loss in the bilateral lower lobes. Mild mosaic attenuation. Multichamber enlargement of the heart. Intraventricular blood pool is less dense than adjacent myocardium consistent with anemia. Coronary artery calcification. Small to moderate her cardial effusion. Trace right and small left pleural effusions. Liver: Normal morphology. Density consistent with hepatic steatosis. Hypodensity at the hepatic dome indeterminate but likely hepatic cyst. Biliary: No gross biliary ductal dilatation allowing for noncontrast technique. Normal gallbladder. Pancreas: Moderate parenchymal atrophy. Spleen: Normal noncontrast appearance. Adrenal glands: Normal noncontrast appearance. Kidneys and ureters: Normal noncontrast appearance. The left kidney is displaced towards the right and anteriorly secondary to the large retroperitoneal hematoma. Nonobstructing 5 mm calculus versus renal vascular calcification in the interpolar region of the left kidney. Additional nonobstructing 3 mm calculus in the left kidney.. No hydronephrosis. Normal ureters. Bladder: Decompressed with a Alaniz catheter. Pelvic organs: Prostate enlargement likely secondary to benign prostatic hyperplasia. Bowel: Diverticulosis of the proximal sigmoid colon and descending colon. Anterior displacement of the descending colon secondary to retroperitoneal hematoma. No bowel obstruction. Peritoneal cavity: Large retroperitoneal acute hematoma with a hematocrit level suggesting underlying coagulopathy. Maximal axial dimension measures 14 x 15 cm. This is primarily centered in the posterior left perirenal space and involves the left psoas muscle and extends to the superior pelvis and extraperitoneal pelvic spaces including the space of Retzius. Minimal extension across the midline into the anterior pararenal spaces. Small perihepatic ascites. No free air. Lymph nodes: No gross lymphadenopathy allowing for noncontrast technique. Vasculature: Atherosclerosis of the abdominal aorta, which demonstrates slight infrarenal ectasia measuring up to 3.6 cm in diameter. 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 The aneurysmal dilatation involves the origins of the left internal and neck terminal iliac arteries. The acute retroperitoneal hematoma abuts the left iliac bifurcation. Abdominal wall: Mild body wall edema. Musculoskeletal: Degenerative changes of the spine. Total left hip arthroplasty. Periprosthetic lucency in the superior acetabulum may suggest developing particle disease or loosening. IMPRESSION: 1. Large acute left retroperitoneal hematoma. 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 Evaluation for active extravasation cannot be assessed given the absence of intravenous contrast. Underlying coagulopathy suspected. 2. Nonobstructing left renal calculi. 3. Hepatic steatosis. The report will be called/faxed according to standard departmental protocol. Electronically signed by: Alber Bar M.D. 02/10/2017 10:22 AM Dictated Date/Time: 02/10/2017 10:09 AM
--- NOTE | 2017-02-10 10:48 | NUR ---
Case Management- Patient was not doing well yesterday desaturating having his hemoglobin drop. He has required 3 units prbc and 2 units of ffp. Patient is currently on 15l oxymask. He is going to ct today. Initial plans were for him to return home. Therapy has not been able to evaluate due ro decline. No plans for discharge over weekend. CM following
[2017-02-10] MEDS ORDERED: NORMOSOL R 1,000 ML IV SCH (11:30)
--- NOTE | 2017-02-10 11:30 | NUR ---
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 Dr sanabria consulted. pt being prepared for transfer to [facility]. Dr Maddox spoke with pt and his son regarding pt's situation.
--- NOTE | 2017-02-10 11:31 | Surgery Consultation ---
Consultation Date of Service Feb 10, 2017. Chief Complaint Retroperitoneal hematoma, ruptured left iliac artery aneurysm History of Present Illness The patient is a 81 year old male who was admitted 4 days ago after experiencing sudden onset of left pelvic and hip pain which felt like a sudden pop. He fell over in his truck and couldn't move. His [employer] called EMS and he was taken here. He does have a left hip prothesis. He has a history of COPD, on CPAP, HTN, HTN, BPH, JITENDRA uses CPAP, A-fib on Eliquis HS. He has been off Eliquis for 5 days now. He does have a strong family history of AAA, with two brothers who from ruptured AAA. Vitals Vital Signs Past 12 Hours Date Time Temp Pulse Resp B/P (MAP) Pulse Ox O2 Delivery O2 Flow Rate FiO2 02/10/17 09:00 112 16 130/87 (101) 92 Oxymask 15.0 02/10/17 08:00 CPAP 60 02/10/17 08:00 36.5 113 20 126/68 (87) 95 CPAP 60 02/10/17 07:48 114 94 60 02/10/17 07:08 110 94 50 02/10/17 07:06 110 15 94 BiPAP/CPAP 50 02/10/17 07:00 111 20 115/77 (90) 93 CPAP 60 02/10/17 06:39 36.6 104 14 122/67 94 02/10/17 06:01 109 15 109/72 (81) 92 02/10/17 06:00 36.4 110 15 109/72 92 02/10/17 05:31 105 14 102/64 (74) 92 02/10/17 05:30 36.4 117 14 102/64 92 02/10/17 05:16 111 11 109/67 (77) 92 02/10/17 05:12 120 96 60 02/10/17 05:01 115 15 118/70 (82) 95 02/10/17 05:00 36.4 113 15 118/70 95 02/10/17 04:46 108 12 110/66 (71) 95 02/10/17 04:44 36.4 111 14 113/68 96 02/10/17 04:31 106 14 113/68 (71) 94 02/10/17 04:29 36.4 114 16 99/67 95 02/10/17 04:24 101 16 99/67 (75) 95 02/10/17 04:01 110 15 107/73 (90) 95 02/10/17 04:00 94 CPAP 60 02/10/17 04:00 36.4 02/10/17 03:31 122 17 109/66 (69) 95 02/10/17 03:01 113 16 110/59 (70) 94 02/10/17 02:31 102 15 117/64 (71) 93 02/10/17 02:06 105 94 60 02/10/17 02:05 105 14 94 BiPAP/CPAP 60 02/10/17 02:01 109 16 101/65 (71) 96 02/10/17 01:31 115 14 113/68 (73) 94 02/10/17 01:01 113 18 106/67 (80) 93 02/10/17 00:31 103 16 114/67 (78) 94 02/10/17 00:01 36.3 02/10/17 00:01 106 15 117/77 (92) 93 02/09/17 23:59 93 CPAP 60 02/09/17 23:31 109 18 110/62 (84) 93 Allergies Coded Allergies: Penicillins (Verified Allergy, Severe, RASH, 02/06/17) Home Medications Scheduled Alfuzosin Hcl (Uroxatral), 10 MG PO DAILY Apixaban (Eliquis), 5 MG PO BID Fluticasone Furoate-Vilanterol (Breo Ellipta 200-25 Mcg/INH), 1 INHA PO DAILY Lisinopril/Hctz (Zestoretic 20MG/12.5MG), 1 TAB PO DAILY Metoprolol Succinate (Toprol Xl), 25 MG PO DAILY Pravastatin Sodium (Pravachol), 40 MG PO DAILY Scheduled PRN Acetaminophen (Tylenol), 1,000 MG PO Q6 PRN for Headache or Pain Famotidine (Pepcid), 20 MG PO DAILY PRN for ACID REFLUX Oxymetazoline Hcl (Afrin), 2 SPRAYS FLEX DAILY PRN for Nasal Congestion Problem List Medical Problems: (1) Acute blood loss anemia (2) Acute respiratory failure (3) Aneurysm artery, iliac common (4) Atrial fibrillation (5) COPD (chronic obstructive pulmonary disease) (6) Dyslipidemia (7) HTN (hypertension) (8) JITENDRA (obstructive sleep apnea) (9) Retroperitoneal bleeding Surgical Problems: (1) History of hip replacement (2) History of left hip replacement (3) Hx of right knee surgery Surgical / Medical History Hx Cardiac Surgery: No Hx Abdominal Surgery: No Hx Cancer Surgery: No Hx Thoracic Surgery: No Hx Orthopedic: Yes (hip replacement 2009) Hx Urinary Tract Surgery: No HX Other Surgery: No Past Medical/Surgical History: COPD, Hypertension, Kidney Disease Family History Diabetes mellitus Stroke Social History Smoking Status: Former Smoker Hx Tobacco Use In Past Year?: No (quit 2009) Hx Alcohol Use - Type & Amnt: Yes (glass of wine occasionally) Hx Substance Use -Type & Amnt: No Review of Systems Constitutional: + weakness Respiratory: + short of breath Cardiovascular: No chest pain, No chest tightness, No chest pressure, No palpitations, No syncope, No diaphoresis, No edema, No intermittent claudication , No orthopnea, No cyanosis, No mumur, No lightheadedness, No paroxysmal nocturnal dyspnea, No problem reported Gastrointestinal: + abdominal pain (left lower quadrant) Musculoskeletal: + back pain Neurologic: + weakness Psychiatric: No anxiety, No alcohol abuse, No auditory hallucinations, No depression, No drug abuse, No homicidal ideation, No mood changes, No suicidal ideation, No visual hallucinations, No problem reported Physical Exam Constitutional: General Apperance: overweight Level of Distress: mild distress Ambulation: ambulating normally Psychiatric: Mental Status: active & alert, normal mood, normal affect Orientation: oriented except where noted, to time, to place, to person Memory: recent memory normal, remote memory normal Neck: supple Lungs: Auscultation: pertinent finding (distant breath sounds) Cardiovascular: Heart Auscultation: pertinent finding (a fib) Peripheral Pulses: Radial Pulse: normal on the left, normal on the right Femoral Pulse: normal on the left, normal on the right Abdomen: Inspection & Palpation: soft, LLQ tenderness Musculoskeletal: normal Extremities: Upper Right: no cyanosis, no edema, no varicosities, no palpable cord, no clubbing, no ulcers, no mottling Upper Left: no cyanosis, no edema, no palpable cord, no clubbing, no ulcers , no mottling Lower Right: no cyanosis, no edema, no varicosities, no palpable cord, no clubbing, no ulcers, no mottling Lower Left: no cyanosis, no edema, no varicosities, no palpable cord, no clubbing, no ulcers, no mottling Neurologic: Cranial Nerves: grossly intact Sensation: grossly intact Assessment and Plan Imp: Ruptured left common iliac artery Retroperitoneal hematoma Acute kidney injury COPD A Fib Plan: The CT scan shows a neck in the common iliac artery for proximal endograft landing zone. He has a 4cm left common iliac artery aneurysm. At the bifurcation, you loose the nice plane of the aneurysm on the CT scan without contrast. This area is connected to a very large retroperitoneal hematoma. He has had three units of blood since admission and is stable at this time. Admission was 4 days ago. This appears to be able to be possibly repaired with an iliac endograft. He has been off his Eliquis since the day before admission. He does have a strong family history of AAA, two brothers of ruptured AAA. Due to lack of vascular coverage after this afternoon, he will be transferred to [facility] being he is stable from his contained ruptured iliac aneurysm. Thank you very much for letting me participate in the care of this patient.
--- NOTE | 2017-02-10 11:33 | Critical Care Progress Note ---
Critical Care Progress Note Date of Service Feb 10, 2017. ICU Day ICU Day Number: [address] Maddox Objective General: Alert and oriented 3 Pulmonary: Prolonged I:E ratio scattered wheeze Current SOFA Score SOFA Score Response (Comments) Value SaO2 / FIO2 142 - 220 2 Platelets (x10) < 150 1 Bilirubin (mg/dL) < 1.2 0 [place] Coma Score 15 0 Level of Hypotension No Hypotension 0 Creatinine (mg/dL) 2.0 - 3.4 2 Total 5 Previous SOFA Scores 02/09/2017: 7 Assessment & Plan (1) Retroperitoneal bleeding (2) Aneurysm artery, iliac common (3) Acute blood loss anemia (4) COPD (chronic obstructive pulmonary disease) (5) Renal failure (6) Acute respiratory failure (7) Rhabdomyolysis (8) Hypoxia (9) Left hip pain (10) COPD exacerbation (11) Afib (12) HTN (hypertension) (13) Dyslipidemia (14) JITENDRA (obstructive sleep apnea) Reason Critically Ill: Patient is 81-year-old male with severe hypoxemia secondary to influenza pneumonia, presumptive bacterial pneumonia, complicated by acute retroperitoneal bleed secondary to heparinization for chronic atrial fibrillation, with incidental finding of common iliac artery aneurysm on the right. PLAN: Neuro: Pain well controlled Resp: Acute on chronic hypoxic respiratory failure * Slightly improved today, now tolerating 15 L oxygen mask * Will decrease steroid dosage today Influenza A pneumonia medications adjusted for improved renal function Community-acquired pneumonia as secondary bacterial infection in setting of influenza A * Sputum culture heavy growth of normal sukhdeep * Rocephin and Levaquin will continue given risk factors for a total of 10 days of treatment CV: Atrial fibrillation * Chronic anticoagulation secondary to atrial fibrillation on [facility] as outpatient * Patient was on heparin infusion * This is been held given acute drop in hemoglobin and hematocrit Fluids/Renal: * Creatinine decreased to 2.28 from 2.45 * Urine output has decreased since hypotensive episode * Nephrology consult reviewed ID:Continue Tamiflu continue Rocephin, continue Levaquin GI/Nutrition: Nothing by mouth with anticipation of operative management Heme: Acute blood loss anemia Secondary to retroperitoneal hematoma Secondary to ruptured left iliac artery aneurysm * Transfused 3 units packed red blood cells, 2 units FFP * Unable to perform CT scan yesterday secondary to severe hypoxemia * Improved respiratory status today and was able to achieve noncontrasted CT secondary to PARVIZ * Peripheral smear revealed no evidence of schistocytes I discussed the case with Dr. Telles, we do not have interventional radiology capabilities, there will be limited vascular surgery coverage after today. Given the patient's multiple comorbidities and need for several subspecialist the patient would be best handled at a tertiary [facility] Center. Dr. Telles discussed the case with Dr. Amanda who he reported is the accepting physician Endocrine: Hyperglycemia * Within acceptable limits while on insulin infusion CODE STATUS: Patient was DO NOT RESUSCITATE in event of cardiac arrest Patient will be flown to [facility] for further operative evaluation and management I have personally spent 95 minutes of critical care time in the direct management of this patient. This is a life/limb threatening event. This includes time spent evaluating patient, direct bedside care, chart review, placing orders, interpretation of diagnostic studies, discussion with consultants, patient, and family members, as well as other required patient management activities. This time is exclusive of all separately billable procedures, and teaching time and separate from and in addition to any other critical care service time. Consults & Procedures Consultants: Orthopedics Vascular Surgery Procedures: NA Data Medications: Current Inpatient Medications Medications (Trade) Dose Ordered Sig/Doreen Route Start Time Stop Time Status Last Admin Dose Admin Acetaminophen (Tylenol Tab) 650 mg Q4H PRN PO 02/06/17 18:00 03/08/17 17:59 02/07/17 22:08 650 MG Nitroglycerin (Nitrostat Tab) 0.4 mg UD PRN SL 02/06/17 18:00 03/08/17 17:59 Morphine Sulfate (MoRPHine SULFATE INJ) 2 mg Q2H PRN IV 02/06/17 18:00 02/20/17 17:59 02/09/17 22:19 2 MG Alfuzosin HCl (Uroxatral Tab) 10 mg DAILY PO 02/07/17 09:00 03/09/17 08:59 02/10/17 09:06 10 MG Metoprolol Succinate (Toprol Xl Tab) 25 mg DAILY PO 02/07/17 09:00 03/09/17 08:59 Future Hold 02/08/17 09:15 25 MG Pravastatin Sodium (Pravachol Tab) 40 mg DAILY PO 02/07/17 09:00 03/09/17 08:59 Future hold 02/10/17 09:06 40 MG Metoprolol Tartrate (Lopressor Iv) 2.5 mg Q4 PRN IV 02/06/17 20:00 03/08/17 19:59 Levofloxacin (Consult) 1 ea UD PRN N/A 02/06/17 21:30 03/08/17 21:29 Ipratropium Lutz (Atrovent 0.02% 0.5MG/2.5ML Neb) 0.5 mg Q6R INH 02/07/17 03:00 03/09/17 02:59 02/10/17 07:05 0.5 MG Levalbuterol (Xopenex 1.25MG/ 0.5ML Neb) 1.25 mg Q6R INH 02/07/17 03:00 03/09/17 02:59 02/10/17 07:05 1.25 MG Ipratropium Lutz (Atrovent 0.02% 0.5MG/2.5ML Neb) 0.5 mg Q2H PRN INH 02/06/17 22:00 03/08/17 21:59 Levalbuterol (Xopenex 1.25MG/ 0.5ML Neb) 1.25 mg Q2H PRN INH 02/06/17 22:00 03/08/17 21:59 Ceftriaxone Sodium 1 gm/ Dextrose 50 ml @ 100 mls/hr DAILY@2300 IV 02/07/17 01:30 02/17/17 22:59 02/09/17 22:19 100 MLS/HR Miscellaneous Information (Consult Glycemic Management Pharmacy) 1 ea UD PRN N/A 02/07/17 08:39 03/09/17 08:38 Fluticasone/ Vilanterol (Breo Ellipta 200-25 Mcg/Inh) 1 inha DAILY INH 02/08/17 09:00 03/10/17 08:59 02/10/17 09:06 1 INHA Levofloxacin 750 mg/Prmx 150 ml @ 100 mls/hr Q2D@1600 IV 02/08/17 16:00 02/16/17 15:59 02/08/17 15:48 100 MLS/HR Oseltamivir Phosphate (Tamiflu Susp) 30 mg BID PO 02/08/17 21:00 02/11/17 23:59 02/10/17 09:06 30 MG Methylprednisolone Sodium Succinate 40 mg/Syringe 0.64 ml @ 1.5 mls/min BID IV 02/08/17 21:00 03/08/17 21:59 02/10/17 09:06 1.5 MLS/MIN Simethicone (Mylicon Chew Tab) 80 mg Q6H PRN PO 02/08/17 13:00 03/10/17 12:59 02/08/17 13:33 80 MG Insulin Aspart (novoLOG ASPART) SLIDING SCALE HS ND 02/09/17 08:00 03/11/17 07:59 Insulin Human Regular 250 units/ Sodium Chloride 252.5 ml @ 0 mls/hr Q24H IV 02/09/17 07:00 03/11/17 06:59 02/10/17 06:44 1.1 MLS/HR Ondansetron HCl (Zofran Inj) 4 mg Q6H PRN IV 02/09/17 08:45 03/11/17 08:44 02/09/17 08:35 4 MG Phenylephrine HCl 20 mg/Dextrose 502 ml @ 0 mls/hr Q0M PRN IV 02/09/17 09:30 03/11/17 09:29 02/09/17 22:36 9.1 MLS/HR Famotidine (Pepcid Tab) 20 mg DAILY PO 02/10/17 09:30 03/12/17 09:29 02/10/17 09:36 20 MG Vital Signs: Date Time Temp Pulse Resp B/P (MAP) Pulse Ox O2 Delivery O2 Flow Rate FiO2 02/10/17 09:00 112 16 130/87 (101) 92 Oxymask 15.0 02/10/17 08:00 CPAP 60 02/10/17 08:00 36.5 113 20 126/68 (87) 95 CPAP 60 02/10/17 07:48 114 94 60 02/10/17 07:08 110 94 50 02/10/17 07:06 110 15 94 BiPAP/CPAP 50 02/10/17 07:00 111 20 115/77 (90) 93 CPAP 60 02/10/17 06:39 36.6 104 14 122/67 94 02/10/17 06:01 109 15 109/72 (81) 92 02/10/17 06:00 36.4 110 15 109/72 92 02/10/17 05:31 105 14 102/64 (74) 92 02/10/17 05:30 36.4 117 14 102/64 92 02/10/17 05:16 111 11 109/67 (77) 92 02/10/17 05:12 120 96 60 02/10/17 05:01 115 15 118/70 (82) 95 02/10/17 05:00 36.4 113 15 118/70 95 02/10/17 04:46 108 12 110/66 (71) 95 02/10/17 04:44 36.4 111 14 113/68 96 02/10/17 04:31 106 14 113/68 (71) 94 02/10/17 04:29 36.4 114 16 99/67 95 02/10/17 04:24 101 16 99/67 (75) 95 02/10/17 04:01 110 15 107/73 (90) 95 02/10/17 04:00 94 CPAP 60 02/10/17 04:00 36.4 02/10/17 03:31 122 17 109/66 (69) 95 02/10/17 03:01 113 16 110/59 (70) 94 02/10/17 02:31 102 15 117/64 (71) 93 02/10/17 02:06 105 94 60 02/10/17 02:05 105 14 94 BiPAP/CPAP 60 02/10/17 02:01 109 16 101/65 (71) 96 02/10/17 01:31 115 14 113/68 (73) 94 02/10/17 01:01 113 18 106/67 (80) 93 02/10/17 00:31 103 16 114/67 (78) 94 02/10/17 00:01 36.3 02/10/17 00:01 106 15 117/77 (92) 93 02/09/17 23:59 93 CPAP 60 02/09/17 23:31 109 18 110/62 (84) 93 02/09/17 23:01 97 16 105/68 (82) 94 02/09/17 22:52 104 98 70 02/09/17 22:31 113 18 102/66 (74) 97 02/09/17 22:01 104 20 100/79 (94) 95 02/09/17 21:31 103 17 105/64 (69) 96 02/09/17 21:01 104 20 106/72 (75) 97 02/09/17 20:31 105 20 114/62 (89) 97 02/09/17 20:01 102 17 103/71 (77) 96 02/09/17 20:00 95 CPAP 70 02/09/17 20:00 36.3 02/09/17 19:48 98 95 70 02/09/17 19:47 98 20 95 BiPAP/CPAP 70 02/09/17 19:46 103 20 108/62 (68) 95 02/09/17 19:31 98 22 121/63 (67) 92 02/09/17 19:16 93 18 108/74 (79) 93 02/09/17 19:01 95 20 108/64 (76) 95 02/09/17 18:00 108 20 98/71 (80) 94 CPAP 70 02/09/17 17:55 105 95 80 02/09/17 17:00 94 16 115/63 (80) 95 CPAP 80 02/09/17 16:00 Nasal Cannula 50.0 02/09/17 16:00 36.4 96 20 107/64 (78) 92 High Flow Oxygen 50.0 02/09/17 15:00 36.6 96 20 113/62 96 50.0 02/09/17 14:30 36.3 92 20 129/68 94 50.0 02/09/17 14:19 105 20 93 Nasal Cannula 50.0 80 02/09/17 14:15 36.3 85 18 117/67 94 50.0 02/09/17 14:00 36.4 84 20 120/81 93 50.0 02/09/17 13:50 36.5 87 20 120/67 94 50.0 02/09/17 13:00 36.4 95 22 113/72 94 50.0 02/09/17 12:45 36.3 95 16 125/67 94 50.0 02/09/17 12:30 36.5 100 20 107/69 94 50.0 02/09/17 12:23 36.4 95 16 107/71 94 50.0 02/09/17 12:00 Nasal Cannula 50.0 02/09/17 11:30 36.6 99 20 116/63 95 50.0 02/09/17 11:00 36.6 102 20 98/72 96 50.0 Laboratory Results: Last 24 Hours Test 02/09/17 11:11 02/09/17 11:27 02/09/17 12:12 02/09/17 13:13 Bedside Glucose 198 mg/dl 182 mg/dl 174 mg/dl Prothrombin Time 11.5 SECONDS Prothromb Time International Ratio 1.1 Activated Partial Thromboplast Time 26.4 SECONDS Partial Thromboplastin Ratio 1.0 Fibrinogen 383 mg/dl Test 02/09/17 15:03 02/09/17 15:20 02/09/17 16:42 02/09/17 16:58 Hemoglobin 7.7 g/dL Hematocrit 22.5 % Bedside Glucose 119 mg/dl 99 mg/dl 103 mg/dl Test 02/09/17 17:57 02/09/17 19:32 02/09/17 20:24 02/09/17 21:02 Bedside Glucose 101 mg/dl 110 mg/dl 111 mg/dl Hemoglobin 7.8 g/dL Hematocrit 22.4 % Test 02/09/17 21:03 02/09/17 21:28 02/09/17 22:20 02/10/17 00:18 Sodium Level 139 mmol/L Potassium Level 4.5 mmol/L Chloride Level 106 mmol/L Carbon Dioxide Level 26 mmol/L Anion Gap 7.0 mmol/L Blood Urea Nitrogen 91 mg/dl Creatinine 2.45 mg/dl Est Creatinine Clear Calc Drug Dose 32.9 ml/min Estimated GFR () 28.0 Estimated GFR (Non- 24.1 BUN/Creatinine Ratio 37.2 Random Glucose 107 mg/dl Calcium Level 8.4 mg/dl Bedside Glucose 123 mg/dl 123 mg/dl 117 mg/dl Test 02/10/17 01:56 02/10/17 03:04 02/10/17 03:49 02/10/17 08:54 Bedside Glucose 128 mg/dl 129 mg/dl White Blood Count 11.56 K/uL Red Blood Count 2.30 M/uL Hemoglobin 7.0 g/dL 8.4 g/dL Hematocrit 20.7 % 24.6 % Mean Corpuscular Volume 90.0 fL Mean Corpuscular Hemoglobin 30.4 pg Mean Corpuscular Hemoglobin Concent 33.8 g/dl Platelet Count 150 K/uL Mean Platelet Volume 10.8 fL Neutrophils (%) (Auto) 84.0 % Lymphocytes (%) (Auto) 7.1 % Monocytes (%) (Auto) 7.0 % Eosinophils (%) (Auto) 0.0 % Basophils (%) (Auto) 0.2 % Neutrophils # (Auto) 9.71 K/uL Lymphocytes # (Auto) 0.82 K/uL Monocytes # (Auto) 0.81 K/uL Eosinophils # (Auto) 0.00 K/uL Basophils # (Auto) 0.02 K/uL RDW Standard Deviation 51.9 fL RDW Coefficient of Variation 15.8 % Immature Granulocyte % (Auto) 1.7 % Immature Granulocyte # (Auto) 0.20 K/uL Basophilic Stippling OCCASIONAL Sodium Level 139 mmol/L Potassium Level 4.3 mmol/L Chloride Level 107 mmol/L Carbon Dioxide Level 28 mmol/L Anion Gap 4.0 mmol/L Blood Urea Nitrogen 95 mg/dl Creatinine 2.28 mg/dl Est Creatinine Clear Calc Drug Dose 35.3 ml/min Estimated GFR () 30.5 Estimated GFR (Non- 26.3 BUN/Creatinine Ratio 41.8 Random Glucose 116 mg/dl Calcium Level 7.9 mg/dl Phosphorus Level 4.5 mg/dl Magnesium Level 2.1 mg/dl Problem Qualifiers (1) Renal failure: Renal failure chronicity: acute Acute renal failure type: unspecified Qualified Codes: N17.9 - Acute kidney failure, unspecified (2) Rhabdomyolysis: Rhabdomyolysis type: non-traumatic Qualified Codes: M62.82 - Rhabdomyolysis (3) Afib: Atrial fibrillation type: chronic Qualified Codes: I48.2 - Chronic atrial fibrillation
--- NOTE | 2017-02-10 11:50 | Pharmacy Progress Note ---
Glycemic Control Progress Note Date of Service Feb 10, 2017. Scope Glycemic Pharmacist consulted for glycemic control to write orders per [facility] inpatient glycemic control protocol. Objective Accuchecks BSG (last 24hrs): Test 02/09/17 12:12 02/09/17 13:13 02/09/17 15:20 02/09/17 16:42 Bedside Glucose 182 mg/dl (70-99) 174 mg/dl (70-99) 119 mg/dl (70-99) 99 mg/dl (70-99) Test 02/09/17 16:58 02/09/17 17:57 02/09/17 19:32 02/09/17 20:24 Bedside Glucose 103 mg/dl (70-99) 101 mg/dl (70-99) 110 mg/dl (70-99) 111 mg/dl (70-99) Test 02/09/17 21:03 02/09/17 21:28 02/09/17 22:20 02/10/17 00:18 Random Glucose 107 mg/dl (70-99) Bedside Glucose 123 mg/dl (70-99) 123 mg/dl (70-99) 117 mg/dl (70-99) Test 02/10/17 01:56 02/10/17 03:04 02/10/17 03:49 Bedside Glucose 128 mg/dl (70-99) 129 mg/dl (70-99) Random Glucose 116 mg/dl (70-99) HbA1c: Test 02/08/17 04:56 Hemoglobin A1c 5.5 % (4.5-5.6) Recent Pertinent Medications Outpatient Anti-diabetic Regimen: * None * A1c 5.5% on 02/08/17 Patient is currently receiving: * Lantus 20 units SC x1 (admin 02/09 AM) * Insulin drip @ 1.1 units/hr * Severe stress * Goal 100-180 mg/dL Risk Factors for Insulin Resistance: * Steroids: Methylprednisolone 40 mg IV BID * Infection: Influenza A, also with possible PNA * Pressure support: phenylephrine * Diet: NPO Outpatient Anti-Diabetic Meds None Assessment & Plan ASSESSMENT: 02/09/17 * Increased Lantus 20 units x1 this AM for BSG > 220 mg/dL * Significnat increase in physiologic stress * Hypotention with SBP in 60's requiring pressors * Hgb dropped significantly: 11.1 to 6.2 over 24 hours. Requiring blood transfusion. * BSG's have risen 2nd increased stress - insulin gtt initiated, currently running at 5.4 units/hr 02/10/17 * CT demonstrating possible large retroperitoneal hematoma which may explain sudden drop in Hgb noted yesterday. * Continue insulin gtt at this time - discussed oleg Sheldon * Will not continue Lantus at this time in case patient requires surgical intervention (discussed oleg Sheldon). This may cause insulin gtt rate to increase but do not anticipate worsened glycemic control PLAN FOR INPATIENT GLYCEMIC CONTROL: * No Lantus today * Continue Insulin drip per severe stress protocol * Goal range 100-180 mg/dL * Please note that the plan above was derived based on current level of insulin resistance and hospital stress. These recommendations are appropriate for inpatient admission only. Plan of care upon discharge will need to be reassessed to avoid potential outpatient hypo/hyperglycemia. Thank you.
--- NOTE | 2017-02-10 11:58 | Discharge Summary ---
Discharge Summary Date of Service Feb 10, 2017. Discharge Summary Admission Date: Feb 06, 2017 at 18:05 Discharge Date: Feb 10, 2017 Discharge Disposition: Acute care facility Principal Diagnosis: Ruptured left iliac artery aneurysm Secondary Diagnoses/Problems: Acute blood loss anemia Retroperitoneal hematoma Influenza and pneumonia COPD Acute kidney injury Chronic atrial fibrillation Chronic use of anticoagulation Procedures: Right internal jugular central line placed 02/09/2017 Limited bedside ultrasound 02/09/2017 Consultations: Orthopedics: Left hip arthroplasty Nephrology: Acute kidney injury Vascular surgery: Left iliac artery aneurysm Critical care medicine Admission Information HPI (per Admitting provider): Pt is 81 y/o M with PMH COPD, HTN, BPH, JITENDRA uses CPAP, A-fib on Eliquis HS presented to ER with c/o L hip pain. 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 He states 3- 4 days ago he sneezed and felt pop in L hip and reports falling in the cab of his truck. Hx L hip replacement in past. He states that he hasn't been able to get out of his truck since and has been urinating/defecating in a bucket. His truck company called traffic control who then called EMS and had pt transported to ER. Found that pt hypoxic. Hx COPD, previous smoker, on Breo and denies rescue inhaler use. reports chronic cough productive of mendoza/green sputum and denies any increased cough or increased sputum production. Feeling chills and sweats past 2 days, unsure if had fever. Pt denies feeling SOB, however pt obvious respiratory distress. Reports feeling dizzy past couple of days. Reports some discomfort R lower leg. He reports chronic LE edema, worse past week. he states sometimes wears compression hose. Denies LE erythema. Hasn't had much to eat or drink since can't get out of his truck. Denies N/V/D/C, MELO, syncope, vision changes, neck pain, CP, orthopnea, palpitations, choking, rhinorrhea, abdominal pain, paresthesias, rashes, urinary symptoms. Do not have comparison labs, as pt out of state. In ER pt found to O2 sats in 70's increased to 80's on non-rebreather. P: 120's , BP: 103.48. BUN: 93, Cr: 3.94, GFR: 15, POC lactic acid: 1.53. CPK: 2711, Troponin: 0.042 EKG: a-fib, rate 107. ESR: 50, CRP: 21. CXR: Increased bibasilar markings. Left basilar pneumonia could appear similar although is considered less likely. pending LE venous Doppler. Hip/pelvis xray: Lucency along the acetabular component of the total left hip arthroplasty could suggest particle disease. Physical Exam (per Admitting): General Appearance: + obese, + pertinent finding (+respiratory distress, disheveled appearance) Head: normocephalic, atraumatic Eyes: normal inspection, PERRL, sclerae normal ENT: hearing grossly normal, pharynx normal, + pertinent finding (mildly dry mucous membranes) Respiratory/Chest: chest non-tender, + respiratory distress, + decreased breath sounds, + accessory muscle use, + crackles (LLL), + wheezing (scattered throughout) Cardiovascular: + tachycardia, + irregularly irregular Abdomen/GI: normal bowel sounds, non tender, soft Extremities/Musculoskelatal: + pertinent finding (bilateral LE edema, Right lower leg appears larger then left. no extremity erythema or significant warmth , distal pulses intact, sensation to light touch intact. Left lateral hip with tenderness to palpation, limited ROM L hip) Neurologic/Psych: alert, normal mood/affect, oriented x 3 Skin: normal color, warm/dry Hospital Course (1) Retroperitoneal bleeding (2) Aneurysm artery, iliac common (3) Acute blood loss anemia (4) COPD (chronic obstructive pulmonary disease) (5) Renal failure (6) Acute respiratory failure (7) Rhabdomyolysis (8) Hypoxia (9) Left hip pain (10) COPD exacerbation (11) Afib (12) HTN (hypertension) (13) Dyslipidemia (14) JITENDRA (obstructive sleep apnea) Acute Respiratory failure with Hypoxia: H/O COPD, JITENDRA on CPAP CT suggestive of LLL Possible Pneumonia; RUL infectious bronchiolitis; tracheobronchomalacia Influenza A positive Venous Doppler Negative for DVT Patient was on Eliquis for afib Continue IV Ceftriaxone, Levaquin, Tamiflu IV Solumedrol, Nebs, Oxygen Support Blood/Urine cultures: No growth to date Sputum cultures:Heavy normal sukhdeep MRSA screen Negative Appreciate Casework Specialist help Hypotension Possible acute blood loss anemia: Planned for CT scan today Transfuse PRBCs PRN Monitor Hb Currently off Pressors Hb:7.0 today Heparin ggt discontinued No obvious signs of hemolysis PARVIZ Unknown baseline Cr Cr:3.94>>3.91>>>2.28 Off IVF Hold HCTZ/Lisinopril for now Avoid nephrotoxic agents when possible Rhabdomyolysis: Pt spent several days sitting in his truck: CPK: 2711>>1736>>567 Off IV Fluids Afib continue metoprolol Held eliquis until renal function better and Hemoglobin stable IV heparin discontinued as work up for anemia pending Left hip minimal avulsion fracture of greater trochanter: S/P total hip arthroplasty 7 years X RAY HIP: Lucency along the acetabular component of the total left hip arthroplasty could suggest particle disease Appreciate Orthopedics Input PT/OT HTN: BP better hold lisinopril/HCTZ monitor BP Dyslipidemia Continue statin JITENDRA CPAP QHS DVT Px: SCDs, discontinued IV heparin Re: anemia Code Status: DNR Follows with [facility] for routine care per pt DISPOSITION Monitor in ICU Family Contact: Son:Bernard Tamez:[phone]: Wants update from physicians PROCEDURES: CT chest: 1. Extensive right lower lobe airspace opacity with air bronchograms and mild volume loss. Mild left lower lobe airspace opacity. The findings could reflect pneumonia or atelectasis. 2. Mild tree-in-bud opacities within the right upper lobe which suggests an infectious bronchiolitis. 3. Moderate emphysema. 4. Moderate cardiomegaly and small pericardial effusion. 5. 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 Venous Doppler: No evidence of deep venous thrombus within the bilateral lower extremities. L femur X ray: No acute osseous injury of the visualized portion of the left femur. L Hip X ray: 1. Lucency along the acetabular component of the total left hip arthroplasty could suggest particle disease. 2. No acute osseous injury of the pelvis or left hip. Patient was unable to undergo CT scan for acute blood loss anemia on 02/09/2017 secondary to oxygen requirements and inability to lay flat. Patient was transfused a total of 3 units of packed red blood cells and 2 units of FFP since 02/09/2017. His respiratory status improved that we were able to undergo a noncontrast CT scan findings of which included a large retroperitoneal hematoma and a left iliac artery aneurysm. Vascular surgery was consult at and the patient has a presumptive contained rupture into the retroperitoneum. Patient will require subspecialty care unavailable at this institution and so states transfer to tertiary care center, . Patient is currently nothing by mouth, receiving Normosol at 100 mL per hour and a IV insulin infusion. Total time spent on discharge = 15 This includes examination of the patient, discharge planning, medication reconciliation, and communication with other providers. Discharge Instructions Not applicable Problem Qualifiers (1) Renal failure: Renal failure chronicity: acute Acute renal failure type: unspecified Qualified Codes: N17.9 - Acute kidney failure, unspecified (2) Rhabdomyolysis: Rhabdomyolysis type: non-traumatic Qualified Codes: M62.82 - Rhabdomyolysis (3) Afib: Atrial fibrillation type: chronic Qualified Codes: I48.2 - Chronic atrial fibrillation
--- NOTE | 2017-02-10 12:06 | NUR ---
updated regarding pt condition and imminent transfer to [facility]
--- NOTE | 2017-02-10 12:45 | NUR ---
report called to Ki Rodríguez RN at [facility] [place]. Pt being prepared for transport by flight crew. brother cordell called in, updated. Tatyana informed of imminent departure.
== END 2017-02-10 13:10 | disposition short-term general hospital (02) | DRG 193 ==
LOC: C.EDA 14:51 → C.MSICU 18:05 → ENRESERV 18:17
PROVIDERS: ADMIT Internal Medicine; ATTEND Internal Medicine
PROC: 05HM33Z Insertion of Infusion Device into Right Internal Jugular Vein, Percutaneous Approach (ICD-10-PCS; principal; 2017-02-09)
DX: J11.00 Influenza due to unidentified influenza virus with unspecified type of pneumonia (principal); J96.01 Acute respiratory failure with hypoxia; S72.115A Nondisplaced fracture of greater trochanter of left femur, initial encounter for closed fracture; K66.1 Hemoperitoneum; J44.0 Chronic obstructive pulmonary disease with (acute) lower respiratory infection; J44.1 Chronic obstructive pulmonary disease with (acute) exacerbation; N17.9 Acute kidney failure, unspecified; M62.82 Rhabdomyolysis; D62 Acute posthemorrhagic anemia; I72.3 Aneurysm of iliac artery; I48.2 Chronic atrial fibrillation; I11.9 Hypertensive heart disease without heart failure; G47.33 Obstructive sleep apnea (adult) (pediatric); E78.5 Hyperlipidemia, unspecified; E66.9 Obesity, unspecified; Z79.899 Other long term (current) drug therapy; Z79.01 Long term (current) use of anticoagulants; Z66 Do not resuscitate; Z96.642 Presence of left artificial hip joint; Z68.37 Body mass index [BMI] 37.0-37.9, adult; Z87.891 Personal history of nicotine dependence; Z82.49 Family history of ischemic heart disease and other diseases of the circulatory system; Z83.3 Family history of diabetes mellitus; Z82.3 Family history of stroke; V68.3XXA Unspecified occupant of heavy transport vehicle injured in noncollision transport accident in nontraffic accident, initial encounter; W19.XXXA Unspecified fall, initial encounter; Y99.0 Civilian activity done for income or pay